=== PATIENT | female | born 1950 | race Caucasian/White ===

== ENCOUNTER 2021-04-16 10:04 | Outpatient (REF) | payer MEDICARE, SELFPAY ==
--- NOTE | ~2021-04-16 | MM_ITS ---
EXAMINATION: MM SCREENING DIGITAL BREAST TOMOSYNTHESIS, BILATERAL CLINICAL INFORMATION: Screening. Asymptomatic. The lifetime risk of breast cancer based on the Tyrer-Cuzick Model is 2.8%. COMPARISON: Mammography: None. TECHNIQUE: Digital breast tomosynthesis is performed in both the craniocaudal and mediolateral oblique views along with computer-aided detection (CAD). Synthesized 2D images are generated from the tomosynthesis. FINDINGS: The breasts are almost entirely fatty (ACR BI-RADS breast composition Category a). Within the deep lateral aspect of the left breast, along the nipple line, there is a lobulated density measuring approximately 1.1 x 0.5 cm in size, seen only on the mediolateral oblique projection. Exaggerated craniocaudal view and ultrasound is recommended for further evaluation. No suspicious left breast findings identified. MM/MM tomosynthesis screening BI IMPRESSION: Right breast density for further evaluation as described with exaggerated craniocaudal view and ultrasound. ASSESSMENT: BI-RADS 0: Incomplete - Need Additional Imaging Evaluation RECOMMENDATION: 1. Additional views of the right breast. 2. Targeted ultrasound if warranted after review of the additional views. 3. Radiology department staff will contact the patient for additional imaging. This patient's information was entered into a reminder system with a target due date for their next mammogram.
== END 2021-04-16 10:05 | disposition home or self-care (01) ==
LOC: HO.MAMMO 10:04
PROVIDERS: PCP Pediatrics; Visit Provider Pediatrics
DX: Z12.31 Encounter for screening mammogram for malignant neoplasm of breast (principal)
CPT/HCPCS: 77063; 77067

== ENCOUNTER 2021-05-16 10:45 | Outpatient (REF) | payer MEDICARE, SELFPAY ==
--- NOTE | ~2021-05-16 | MM_ITS ---
EXAMINATION: MM DIAGNOSTIC DIGITAL BREAST TOMOSYNTHESIS, RIGHT US DIAGNOSTIC ULTRASOUND BREAST, RIGHT CLINICAL INFORMATION: Recall from baseline exam for nodule posterior outer right breast. COMPARISON: Mammography: 04/16/2021 TECHNIQUE: Digital breast tomosynthesis is performed. 2D images are generated from the tomosynthesis. The following views are obtained: Exaggerated CC, ML x2. Ultrasound right breast is targeted to the posterior lateral aspect and upper outer quadrant. Grayscale imaging and color Doppler are performed without and with harmonics. FINDINGS: The breasts are almost entirely fatty (ACR BI-RADS breast composition Category a). As noted on baseline exam, there is a macrolobulated nodule approximately 1.2 x 0.7 cm at the posterior 9:00 position approximately 13 cm from nipple. Margins are macrolobulated. There may be a fine fatty cleft. No spiculation or associated calcification. Ultrasound demonstrates benign right axillary nodes. There is no visible cystic or soft tissue nodule in the expected area posterior lateral right breast. Results are discussed with the patient at time of visit. The finding on mammography most likely represents intramammary node. Fibroadenoma may have similar appearance. The chronicity is uncertain as finding is only noted on initial baseline exam. Management plan is for short interval follow-up diagnostic right mammography in 6 months. MM/MM tomosynthesis added views R IMPRESSION: Benign-appearing macrolobulated nodule posterior 9:00 right breast corresponding to recent baseline mammography, possibly intramammary node or fibroadenoma. No ultrasound correlate. ASSESSMENT: BI-RADS 3: Probably Benign RECOMMENDATION: Diagnostic right mammography in 6 months. This patient's information was entered into a reminder system with a target due date for their next mammogram.
== END 2021-05-16 10:46 | disposition home or self-care (01) ==
LOC: HO.MAMMO 10:45
PROVIDERS: Visit Provider Pediatrics
DX: N63.15 Unspecified lump in the right breast, overlapping quadrants (principal)
CPT/HCPCS: 76642; 77061; 77065

== ENCOUNTER 2021-07-08 10:24 | Outpatient (REF) | payer MEDICARE, SELFPAY ==
--- NOTE | ~2021-07-08 | XR_ITS ---
EXAMINATION: XR CHEST CLINICAL INFORMATION: J44.9 COPD COMPARISON: None TECHNIQUE: 2 views of the chest were obtained. FINDINGS: There is mild hyperinflation. The heart is normal in size. There is tapering of the right cardiophrenic angle likely related to areolar tissue. The vascularity is normal. There is no vascular congestion, airspace consolidation, or groundglass opacity. The costophrenic sulci are clear. The hilar and mediastinal contours are normal. There are degenerative changes thoracic spine and right shoulder. XR/XR chest 2V IMPRESSION: Mild hyperinflation. Lungs clear.
== END 2021-07-08 10:25 | disposition home or self-care (01) ==
LOC: HO.HMGCX 10:24
PROVIDERS: Visit Provider Internal Medicine
DX: J44.9 Chronic obstructive pulmonary disease, unspecified (principal)
CPT/HCPCS: 71046

== ENCOUNTER 2021-11-17 10:36 | Outpatient (REF) | payer MEDICARE, SELFPAY ==
--- NOTE | ~2021-11-17 | MM_ITS ---
EXAMINATION: MM DIAGNOSTIC DIGITAL BREAST TOMOSYNTHESIS, RIGHT CLINICAL INFORMATION: Short interval six-month follow-up right mammography for probable benign macrolobulated nodule posterior 9:00 right breast, possibly fibroadenoma or intramammary node. The lifetime risk of breast cancer based on the Tyrer-Cuzick Model is 2%. COMPARISON: Mammography: 05/16/2021, 04/16/2021 (BI-RADS 0, baseline), targeted right breast ultrasound 05/16/2021. TECHNIQUE: Digital breast tomosynthesis is performed in both the craniocaudal and mediolateral oblique views along with computer-aided detection (CAD). Synthesized 2D images are generated from the tomosynthesis. FINDINGS: The breasts are almost entirely fatty (ACR BI-RADS breast composition Category a). The small macrolobulated nodule posterior 9:00 right breast is stable to borderline decreased. There is no architectural abnormality. No developing density. The remainder of the right breast is unremarkable. No abnormal calcifications. No adenopathy. The skin contours are smooth. Results are provided to the patient at time of visit by the technologist. MM/MM tomosynthesis diagnostic RT IMPRESSION: Mammography similar to baseline exam. No developing density. ASSESSMENT: BI-RADS 3: Probably Benign RECOMMENDATION: Diagnostic mammography at time of annual bilateral mammography, due in 6 months. This patient's information was entered into a reminder system with a target due date for their next mammogram.
== END 2021-11-17 10:37 | disposition home or self-care (01) ==
LOC: HO.MAMMO 10:36
PROVIDERS: PCP Pediatrics; Visit Provider Pediatrics
DX: N63.15 Unspecified lump in the right breast, overlapping quadrants (principal)
CPT/HCPCS: 77061; 77065

== ENCOUNTER 2022-05-20 10:27 | Outpatient (REF) | payer MEDICARE, SELFPAY ==
--- NOTE | ~2022-05-20 | MM_ITS ---
EXAMINATION: MM DIAGNOSTIC DIGITAL BREAST TOMOSYNTHESIS, BILATERAL CLINICAL INFORMATION: Due for yearly. Also follow-up probable benign nodule posterior upper outer right breast, possibly intramammary node. The lifetime risk of breast cancer based on the Tyrer-Cuzick Model is 2%. COMPARISON: Mammography: 11/17/2021, 05/16/2021, 04/16/2021 (baseline, BI-RADS 0). TECHNIQUE: Digital breast tomosynthesis is performed in both the craniocaudal and mediolateral oblique views along with computer-aided detection (CAD). Synthesized 2D images are generated from the tomosynthesis. Additional exaggerated right CC view is obtained. FINDINGS: The breasts are almost entirely fatty (ACR BI-RADS breast composition Category a). Background stromal and fibroglandular densities are stable. There is no significant mass or interval architectural abnormality or developing density. No abnormal calcifications. The axilla are unremarkable. The oval nodule posterior upper outer right breast is stable from prior studies and will be reassessed again at next bilateral annual mammography, due in 12 months. Results are provided to the patient at time of visit by the technologist. MM/MM tomosynthesis diagnostic BI IMPRESSION: -No mammographic evidence of malignancy. -Probable benign nodule posterior outer right breast, stable. ASSESSMENT: BI-RADS 3: Probably Benign RECOMMENDATION: Diagnostic mammography at time of next annual exam, due in 12 months. This patient's information was entered into a reminder system with a target due date for their next mammogram.
== END 2022-05-20 10:28 | disposition home or self-care (01) ==
LOC: HO.MAMMO 10:27
PROVIDERS: PCP Pediatrics; Visit Provider Pediatrics
DX: R92.2 Inconclusive mammogram (principal)
CPT/HCPCS: 77062; 77066

== ENCOUNTER 2023-05-20 13:03 | Outpatient (REF) | payer MEDICARE, SELFPAY | END 2023-05-20 13:04 | disposition home or self-care (01) | LOC: HO.MAMMO 13:03 | PROVIDERS: PCP Pediatrics; Visit Provider Pediatrics | DX: R92.2 Inconclusive mammogram (principal) | CPT/HCPCS: 77062; 77066 ==

== ENCOUNTER → 2023-05-20 13:30 | Outpatient (BNV) | payer MEDICARE, SELFPAY | PROVIDERS: PCP Pediatrics; Visit Provider Radiology Diagnostic Radiology | DX: R92.313 Mammographic fatty tissue density, bilateral breasts (principal) | CPT/HCPCS: 77062; 77066; G0279 ==

== ENCOUNTER 2024-05-25 10:46 | Outpatient (REF) | payer MEDICARE, SELFPAY ==
--- NOTE | ~2024-05-25 | MM_ITS ---
EXAMINATION: MM SCREENING DIGITAL BREAST TOMOSYNTHESIS, BILATERAL CLINICAL INFORMATION: Screening. Asymptomatic. COMPARISON: Mammography: Comparison is made with available priors TECHNIQUE: Digital breast mammography with tomosynthesis is performed in both the craniocaudal and mediolateral oblique views along with computer-aided detection (CAD). FINDINGS: There are scattered areas of fibroglandular density (ACR BI-RADS breast composition Category b). There are no significant masses, abnormal calcifications, or other abnormalities. MM/MM tomosynthesis screening BI IMPRESSION: No mammographic evidence of malignancy. ASSESSMENT: BI-RADS BI-RADS 1 - Negative RECOMMENDATION: Routine annual mammography screening. 1 year F/U This examination should not preclude the clinical evaluation of a suspicious palpable abnormality. This patient's information was entered into a reminder system with a target due date for their next mammogram. Electronically signed by: Cheryl Cheek DO 06/02/2024 09:58 AM EDT
== END 2024-05-25 10:47 | disposition home or self-care (01) ==
LOC: HO.MAMMO 10:46
PROVIDERS: PCP Pediatrics; Visit Provider Pediatrics
DX: Z12.31 Encounter for screening mammogram for malignant neoplasm of breast (principal)
CPT/HCPCS: 77063; 77067

== ENCOUNTER → 2024-05-25 11:15 | Outpatient (BNV) | payer MEDICARE, SELFPAY | PROVIDERS: PCP Pediatrics; Visit Provider Internal Medicine | DX: Z12.31 Encounter for screening mammogram for malignant neoplasm of breast (principal) | CPT/HCPCS: 77063; 77067 ==

== ENCOUNTER 2024-09-26 10:01 | Outpatient (REF) | payer MEDICARE, SELFPAY ==
--- NOTE | ~2024-09-26 | MM_ITS ---
EXAMINATION: DXA BONE DENSITY AXIAL HISTORY: Estrogen deficiency TECHNIQUE: [employer] Dual energy absorptiometry (DEXA) of the lumbar spine, distal forearm, total right hip, and femoral neck was performed. COMPARISON: There are no prior studies for comparison. FINDINGS: The bone mineral density of the lumbar spine is 1.259 with a T-score of 0.8, and a Z-score of 1.7. This is likely artificially elevated due to degenerative disc disease. The bone mineral density of the right total hip is 1.344 with a T-score of 2.7, and a Z-score of 3.7. This is likely artificially elevated due to osteoarthritis. The bone mineral density of the right femoral neck is 1.868 with a T-score of 6.0, and a Z-score of 7.3. This is likely artificially elevated due to osteoarthritis. The bone mineral density of the distal forearm is 0.706 with a T-score of -1.9, and a Z-score of 0.2. FRACTURE RISK: The FRAX index suggests a risk of major osteoporotic fracture of 3.4%, and of hip fracture 0.0%. MM/XR DEXA axial skeleton IMPRESSION: Based on bone mineral density, and according to World Health Organization (WHO) criteria, the diagnosis is consistent with osteopenia. All bone density values are in grams per centimeter squared (g/cm2). Statistically, 68% of repeat scans fall within 1 SD (+/- 0.010 g/cm2 for AP spine L1-L4) and 1 SD (+/- 0.012 g/cm2 for femur total) FRAX is a trademark of the [employer]'s [place] [employer] Metabolic Bone Disease, a World Health Organization (WHO) Collaborating Center. Electronically signed by: Richard Stroud MD 09/26/2024 03:46 PM [facility]
--- OUTSIDE RECORDS SUMMARY | 2024-09-26 11:10 | XMS_ITS | Encounter Summary ---
Author Organization [employer] Address [address] [place] [address] [address] [place] [address] Care Team Providers Care Urban Gardening Specialist Name Role Phone Nicky Wilson MD Primary Care Provider [phone] Encounter Details Date Type Department Care Team ([facility] st Contact Info) Description 07/08/2022 Abstract [facility] [address] [place] [address] Provider, MD Susanna Social History Tobacco Use Types Packs/Day Years Used Date Smoking Tobacco: Never Assessed Comments Unknown Sex and Gender Information Value Date Recorded Sex Assigned at Female 06/15/2022 10:35 AM EDT Legal Sex Female 10:35 AM EDT Gender Identity Female 06/15/2022 10:35 AM EDT Sexual Orientation Straight 06/15/2022 10 :35 AM EDT documented as of this encounter Plan of Treatment Not on file documented as of this encounter Visit Diagnoses Not on filedocumented in this encounter Care Teams Urban Gardening Specialist Relationship Specialty Start Date End Date Nicky Wilson MD [address] [place] [address] PCP - General Family Medicine 12/29/18 documented as of this encounter
--- OUTSIDE RECORDS SUMMARY | 2024-09-26 11:10 | XMS_ITS | Encounter Summary ---
Author Organization [employer] Address [address] [place] [address] [address] [place] [address] Care Team Providers Care Ssrs Report Developer Name Role Phone Nicky Wilson MD Primary Care Provider [phone] Reason for Visit * Reason Comments Med Refill Encounter Details Date Type Department Care Team (Late st Contact Info) Description 05/22/2023 Refill [facility] MEDICINE [address] [place], [place] [id number] Nicky Wilson MD [address] [place] [address] Social History Tobacco Use Types Packs/Day Years [...] on filedocumented in this encounter Care Teams Ssrs Report Developer Relationship Specialty Start Date End Date Nicky Wilson MD [address] [place] [address] PCP - General Family Medicine 12/29/18 documented as of this encounter
--- OUTSIDE RECORDS SUMMARY | 2024-09-26 11:10 | XMS_ITS | Encounter Summary ---
Author Organization [employer] Address [address] [place] [address] [address] [place] [address] Care Team Providers Care Senior Coldfusion Developer Name Role Phone Nicky Wilson MD Primary Care Provider Encounter Details Date Type Department Care Team ([facility] st Contact Info) Description 07/08/2022 Abstract [facility] MEDICINE [address] [place] [address] Provider, MD Susanna Social History Tobacco Use [...] on filedocumented in this encounter Care Teams Senior Coldfusion Developer Relationship Specialty Start Date End Date Nicky Wilson MD [address] [place] [address] PCP - General Family Medicine 12/29/18 documented as of this encounter
--- OUTSIDE RECORDS SUMMARY | 2024-09-26 11:10 | XMS_ITS | Encounter Summary ---
Author Organization [employer] Address [address] [place] [address] [address] [place] [address] Care Team Providers Care Qa Tech Name Role Phone Nicky Wilson MD Primary Care Provider [phone] Reason for Visit * Reason Comments Med Refill Encounter Details Date Type Department Care Team ([facility] st Contact Info) Description 11/28/2022 Refill [facility] [address] [place] [address] Nicky Wilson MD [address] [place] [address] Social History Tobacco Use Types Packs/Day Years [...] on filedocumented in this encounter Care Teams Qa Tech Relationship Specialty Start Date End Date Nicky Wilson MD [address] [place] [address] PCP - General Family Medicine 12/29/18 documented as of this encounter
--- OUTSIDE RECORDS SUMMARY | 2024-09-26 11:10 | XMS_ITS | Clinical Summary ---
Author Organization [employer] Address [address] [facility] [address] [place] [address] Care Team Providers Care Professor Of German Name Role Phone Nicky Wilson MD Primary Care Provider [phone] Allergies Active Allergy Reactions Criticality Noted Date Comments Tomato 12/12/2018 Other reaction(s): Cutaneous reactions Medications albuterol 108 (90 Base) MCG/ACT inhaler INHALE 2 PUFFS BY MOUTH INTO THE LUNGS EVERY 4 HOURS NEEDED 2 Active dilTIAZem CD (Cardizem CD) 120 MG 24 hr capsule Take 1 capsule (120 mg) by mouth in the morning. 90 capsule 1 3 Active albuterol (2.5 MG/3ML) 0.083% nebulizer solution Take 3 mL (2.5 mg) by nebulization every 4 (four) hours if needed for wheezing. 75 mL 2 3 Active atorvastatin (Lipitor) 40 MG tabletIndication s:Dyslipidemia TAKE 1 TABLET BY MOUTH EVERY NIGHT AT BEDTIME 90 tablet 1 3 Active atorvastatin (Lipitor) 40 MG tabletIndication s:Dyslipidemia TAKE 1 TABLET BY MOUTH EVERY NIGHT AT BEDTIME 30 tablet 11 3 Active dilTIAZem CD (Cardizem CD) 120 MG 24 hr capsule TAKE 1 CAPSULE BY MOUTH EVERY DAY 90 capsule 3 4 Active albuterol 108 (90 Base) MCG/ACT inhalerIndicatio ns:Mixed simple and mucopurulent chronic bronchitis (CMS/HCC) INAHLE 2 PUFFS BY MOUTH EVERY 4-6 HOURS NEEDED FOR WHEEZING 8.5 g 5 4 Active furosemide (Lasix) 40 MG tabletIndication s: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 2 Active atorvastatin (Lipitor) 40 MG tablet Take 1 tablet by mouth. 9 Active aspirin 81 MG EC tablet Take 1 tablet by mouth Once per day. 9 Active Active Problems Problem Noted Date Diagnosed Date Acute hypoxemic respiratory failure 07/06/2024 Chronic right-sided heart failure 07/06/2024 Chronic obstructive lung disease 12/29/2018 06/10/2023 Atrial fibrillation and flutter 12/29/2018 06/10/2023 Obstructive sleep apnea syndrome 12/29/2018 06/10/2023 Essential (primary) hypertension 12/02/2018 06/10/2023 Secondary polycythemia 12/02/2018 3 Encounters Date Type Department Care Team Description 07/07/2024 Telephone [facility] [address] [place] [address] Nicky Wilson MD Horticultural Asset Management Medical Equipment 07/06/2024 10:00 AM EST Office Visit [facility] [address] [place] [address] Nicky Wilson MD Screening for colon cancer (Primary Dx); Essential (primary) hypertension; Secondary polycythemia; Obstructive sleep apnea syndrome; Osteopenia, unspecified location; Dietary counseling; Exercise counseling; Chronic right-sided heart failure (CMS/HCC); Mixed simple and mucopurulent chronic bronchitis (CMS/HCC); Atrial fibrillation and flutter (CMS/HCC) 07/06/2024 Travel 07/05/2024 Telephone [facility] [address] [place] [address] Nicky Wilson MD Chart Prep from Last 3 Months Immunizations Name Administration Dates Next Due Influenza High-dose Quadriva lent Preservative Free 06/10/2023,05/26/2022,05/14/2021,2019 Influenza, High Dose Seasona l, Preservative Free 06/05/2024,05/11/2019 Influenza, IIV3, injectable 11/27/2018 PPD Test 12/10/2018,12/03/2018 Pneumococcal Conjugate PCV 13 01/26/2019 RSV Adjuvant 07/19/2023 Social History Tobacco Use Types Packs/Day Years Used Date Smoking Tobacco: Former Cigarettes Passive Smoke Exposure: Current Smokeless Tobacco: Never Tobacco Cessation:Counseling Given: Not Answered Comments Unknown Sex and Gender Information Value Date Recorded Sex Assigned at Female 06/15/2022 10:35 AM EDT Legal Sex Female 10:35 AM EDT Gender Identity Female 06/15/2022 10:35 AM EDT Sexual Orientation Straight 06/15/2022 10 :35 AM EDT Last Filed Vital Signs Vital Sign Reading Time Taken Comments Blood Pressure 120/70 07/06/2024 9:58 AM EST Pulse 84 07/06/2024 9:58 AM EST Temperature 36.2 ??C (97.2 ??F) 07/06/2024 9:58 AM ES T Respiratory Rate 20 07/06/2024 9:58 AM EST Oxygen Saturation 87% 07/06/2024 9:58 AM EST Inhaled Oxygen Concentration - - Weight 93.9 kg (207 lb) 07/06/2024 9:58 AM EST Height 170.2 cm (5' 7 ) 07/06/2024 9:58 AM EST Body Mass Index 32.42 07/06/2024 9:58 AM EST Plan of Treatment Health Maintenance Due Date Last Done Comments CT Colonography 1950 Colonoscopy 1950 Colorectal Cancer Screening 1950 Depression Screening 1950 FIT DNA/Cologuard 1951 FIT 1951 FOBT 1950 Lipid Panel 1950 SDOH Screening 1950 Sigmoidoscopy 1950 Alcohol/Substance Use Screening 1963 Hepatitis C Screening 1969 DTaP/Tdap/Td Vaccines (1 - Tdap) 1970 Zoster Vaccines (1 of 2) 2001 Pneumococcal Vaccine: 50+ Years (2 of 2 - PPSV23) 03/23/2019 01/26/2019 Tobacco Screening 07/06/2025 07/06/2024 Mammogram 05/25/2026 05/25/2024, 12/2022, 05/20/2022, Additional history exists RSV Patients and Patients Aged 60 years or older Completed 07/19/2023 COVID-19 Vaccine Completed 06/05/2024, 11/2022, 06/18/2022, Additional history exists Influenza Vaccine Completed 06/05/2024, , 05/26/2022, Additional history exists HIB Vaccines Aged Out No longer eligi ble based on patient's age to complete this topic HPV Vaccines Aged Out No longer eligi ble based on patient's age to complete this topic Hepatitis A Vaccines Aged Out No long er eligible based on patient's age to complete this topic Hepatitis B Vaccines Aged Out No long er eligible based on patient's age to complete this topic IPV Vaccines Aged Out No longer eligi ble based on patient's age to complete this topic Meningococcal Vaccine Aged Out No kayla steven eligible based on patient's age to complete this topic RSV under 20 months Aged Out No longe r eligible based on patient's age to complete this topic Rotavirus Vaccines Aged Out No longer eligible based on patient's age to complete this topic Procedures Procedure Name Priority Date/Time Associated Diagnosis Comments BI MAMMOGRAM SCREENING TOMOSYNTHESIS BILATERAL Routine 05/25/2024 11:00 AM EDT from Last 3 Months or Most Recently Relevant to Health Maintenance Results * BI Mammogram Screening Tomosynthesis Bilateral (05/25/2024 11:00 AM EDT) Anatomical Region Laterality Modality Breast Bilateral Mammography 05/25/2024 11:0 0 AM EDT Narrative 06/02/2024 10:01 AM EDT ? [facility] ? [address] ?[place] [address] ? Mammography Report ? Signed ? Patient: Winter,Krystal ?MR#: [id number] ? : 1950 ?Acct:[id number] ? Age/Sex: 74 / F ?ADM Date: 05/25/24 ? Loc: HO.MAMMO ? Attending Dr: Nicky Wilson MD ? Ordering Physician: Nicky Wilson MD ?Results: 1Ne ?? gative ? Date of Service: 05/25/24 ?Follow Up: 1 Year From Orig ?? inal Mammogram ? Procedure(s): MM tomosynthesis screening BI ?? Accession Number(s): [id number] ? cc: Nicky Wilson MD ? EXAMINATION: ?? MM SCREENING DIGITAL BREAST TOMOSYNTHESIS, BILATERAL ? CLINICAL INFORMATION: ? Screening. Asymptomatic. ? COMPARISON: ?? Mammography: Comparison is made with available priors ? TECHNIQUE: ?? Digital breast mammography with tomosynthesis is performed in both the ?? craniocaudal and mediolateral oblique views along with computer-aided ?? detection (CAD). ? FINDINGS: ?? There are scattered areas of fibroglandular density (ACR BI-RADS breast ?? composition Category b). ? There are no significant masses, abnormal calcifications, or other ?? abnormalities. ? MM/MM tomosynthesis screening BI ?? IMPRESSION: ?? No mammographic evidence of malignancy. ? ASSESSMENT: ? BI-RADS BI-RADS 1 - Negative ? RECOMMENDATION: ?? Routine annual mammography screening. ? 1 year F/U ? This examination should not preclude the clinical evaluation of a ?? suspicious palpable abnormality. ? This patient's information was entered into a reminder system with a ?? target due date for their next mammogram. ? Electronically signed by: ??Cheryl Cheek DO ??06/02/2024 09:58 AM EDT ? Dictated By: ?Cheryl Cheek DO ? Signed By: ?<Electronically signed by Cheryl Cheek, DO in OV> ? 06/02/24 0958 ? DD/ 1100 ? TD/TT: 05/25/24 1126 ? Fire Inspector: ? Procedure Note Donotuseinterpreter, Image - 06/02/2024 [facility] [address] [place] [address] Mammography Report Signed Patient: Sridevi Max#: [id number] : 1Acct:[id number] Age/Sex: 74 / FADM Date: 05/25/24 Loc: HO.MAMMO Attending Dr: Nicky Wilson MD Ordering Physician: Nicky Wilson MDResults: 1Ne gative Date of Service: 05/25/24Follow Up: 1 Year From Orig inal Mammogram Procedure(s): MM tomosynthesis screening BI Accession Number(s): [id number] cc: Nicky Wilson MD EXAMINATION: MM SCREENING DIGITAL BREAST TOMOSYNTHESIS, BILATERAL CLINICAL INFORMATION: Screening. Asymptomatic. COMPARISON: Mammography: Comparison is made with available priors TECHNIQUE: Digital breast mammography with tomosynthesis is performed in both the craniocaudal and mediolateral oblique views along with computer-aided detection (CAD). FINDINGS: There are scattered areas of fibroglandular density (ACR BI-RADS breast composition Category b). There are no significant masses, abnormal calcifications, or other abnormalities. MM/MM tomosynthesis screening BI IMPRESSION: No mammographic evidence of malignancy. ASSESSMENT: BI-RADS BI-RADS 1 - Negative RECOMMENDATION: Routine annual mammography screening. 1 year F/U This examination should not preclude the clinical evaluation of a suspicious palpable abnormality. This patient's information was entered into a reminder system with a target due date for their next mammogram. Electronically signed by: Cheryl Cheek DO 06/02/2024 09:58 AM EDT RP Dictated By: Cheryl Cheek DO Signed By: <Electronically signed by Cheryl Cheek DO in OV> 06/02/24 0958 DD/ 1100 TD/TT: 05/25/24 1126 Fire Inspector: Nicky Wilson MD IMG BI PROCEDURES Final Resul t from Last 3 Months or Most Recently Relevant to Health Maintenance Insurance [employer] MEDICARE ADVANTAGE HMO Care Teams Professor Of German Relationship Specialty Start Date End Date Nicky Wilson MD [address] [place] [address] PCP - General Family Medicine 12/29/18
--- OUTSIDE RECORDS SUMMARY | 2024-09-26 11:10 | XMS_ITS | Encounter Summary ---
Author Organization [employer] Address [address] [place] [address] [address] [place] [address] Care Team Providers Care Letterpress Printing Machinist Name Role Phone Nicky Wilson MD Primary Care Provider [phone] Reason for Visit * Reason Comments Med Refill Encounter Details Date Type Department Care Team (Late st Contact Info) Description 12/27/2022 Refill [facility] [address] [place] [address] Bernice Montgomery MD [address] [place] [address] Social History Tobacco Use Types Packs/Day Years [...] on filedocumented in this encounter Care Teams Letterpress Printing Machinist Relationship Specialty Start Date End Date Nicky Wilson MD [address] [place] [address] PCP - General Family Medicine 12/29/18 documented as of this encounter
--- OUTSIDE RECORDS SUMMARY | 2024-09-26 11:10 | XMS_ITS | Clinical Summary ---
Author Organization [address] [facility] Address [address] [place] [address] Phone Care Team Providers Care Product Support Specialist Name Role Phone Nicky Wilson MD Primary Care Provider [phone] Encounters Date Type Department Care Team Description 07/11[facility]24 [facility] [address] [address] Nicky Wilson MD Referral from Last 3 Months Social History Tobacco Use Types Packs/Day Years Used Date Smoking Tobacco: Never Assessed Comments Unknown Sex and Gender Information Value Date Recorded Sex Assigned at Not on file Legal Sex Female 11:51 PM EST Gender Identity Not on file Sexual Orientation Not on file Plan of Treatment Health Maintenance Due Date Last Done Comments Breast Cancer Screening 1950 DTaP,Tdap,and Td Vaccines (1 - Tdap) 1958 Pneumococcal Vaccine: 50+ Ye ars (1 of 1 - PCV) 2001 Zoster Vaccines (1 of 2) 2001 Colorectal Cancer Screening: Colonoscopy 07/19/2022 Depression Screening 07/19/2022 Falls Risk Assessment 07/19/2022 Hepatitis C Screening 07/19/2022 Medicare Annual Wellness Visit 07/19/2022 Osteoporosis Screening (Bone Density Screening) 07/19/2022 Social Influencers of Health Screening 07/19/2022 COVID-19 Vaccine ( - 2023-2 5 season) 2024 Influenza Vaccine (#1) 2024 RSV Immunization Patients 60 + Years Old (1 - 1-dose 75+ series) 2026 HIB Vaccines Aged Out No longer eligi [...] on patient's age to complete this topic MMR Vaccines Aged Out No longer eligi ble based on patient's age to complete this topic Meningococcal ACWY Vaccine Aged Out N o longer eligible based on patient's age to complete this topic Meningococcal B Vacine Aged Out No lo nger eligible based on patient's age to complete this topic RSV Immunization Patients Un britany 20 months Aged Out No longer eligible b ased on patient's age to complete this topic Varicella Vaccines Aged Out No longer eligible based on patient's age to complete this topic Insurance [employer] MEDICARE Care Teams Product Support Specialist Relationship Specialty Start Date End Date Nicky Wilson MD [address] [place] [id number] PCP - General 03/21/19
--- OUTSIDE RECORDS SUMMARY | 2024-09-26 11:11 | XMS_ITS ---
Author Organization [facility] Address Unknown Allergies, Adverse Reactions, Alerts Substance Reaction Status Noted Date Resolved Date Tomato - raw only Cutaneous reactions active 9 Problems Problem Status Start Date End Date HEART FAILURE, UNSPECIFIED (Primary) (I50.9 - ICD-10-C M) ACTIVE 12/02/2018 RESPIRATORY FAILURE, UNSPECI FIED WITH HYPOXIA (J96.91 - ICD-10-CM) ACTIVE 12/02/2018 LOW BACK PAIN (M54.5 - ICD-10-CM) ACTIVE 019 ACUTE DIASTOLIC (CONGESTIVE) HEART FAILURE (I50.31 - ICD-10-CM) ACTIVE 12/02/2018 SHORTNESS OF BREATH (R06.02 - ICD-10-CM) ACTIVE 12/02/2018 LOCALIZED EDEMA (R60.0 - ICD-10-CM) ACTIVE 12/02 ESSENTIAL (PRIMARY) HYPERTENSION (I10 - ICD-10-CM) ACT ERROL 12/02/2018 OTHER ABNORMALITIES OF GAIT AND MOBILITY (R26.89 - ICD-10-CM) ACTIVE 12/06/2018 OTHER LACK OF COORDINATION (R27.8 - ICD-10-CM) ACTIVE 12/02/2018 WEAKNESS (R53.1 - ICD-10-CM) ACTIVE 12/02/2018 OBSTRUCTIVE SLEEP APNEA (IVANA LT) (PEDIATRIC) (G47.33 - ICD-10-CM) ACTIVE 12/02/2018 UNSPECIFIED ATRIAL FLUTTER (I48.92 - ICD-10-CM) ACTIVE 12/02/2018 SECONDARY POLYCYTHEMIA (D75.1 - ICD-10-CM) ACTIVE 12/02/2018 PRIMARY OSTEOARTHRITIS, RIGH T SHOULDER (M19.011 - ICD-10-CM) ACTIVE 12/02/2018 PAIN IN RIGHT SHOULDER (M25.511 - ICD-10-CM) ACTIVE 12/02/2018 CHRONIC OBSTRUCTIVE PULMONAR Y DISEASE, UNSPECIFIED (J44.9 - ICD-10-CM) ACTIVE 12/15/2018 UNSPECIFIED FRACTURE OF SHAF T OF HUMERUS, RIGHT ARM, SUBSEQUENT ENCOUNTER FOR FRACTURE WITH ROUTINE HEALING (S42.301D - ICD-10-CM) ACTIVE 12/02/2018 Encounters Encounter Performer Performer Role Encounter Diagnoses Location Date Discharge - Home - Private home/apt. with home health services [facility] 12/02/2018 03:08 pm EDT - 12/20/2018 04:23 pm EDT Immunizations Vaccine Date Influenza 11/27/2018 12:00 am EDT TB 2 Step Mantoux Skin Test 12/10/2018 0 9:00 am EDT TB 2 Step Mantoux Skin Test 12/03/2018 0 8:00 pm EDT Social History
--- OUTSIDE RECORDS SUMMARY | 2024-09-26 11:11 | XMS_ITS | Data Portability ---
Author Organization [facility] [employer] [facility], Main Office Address [address] [place] [address] Care Team Providers Care Epic Anesthesia Analyst Name Role Phone MALI LEOS 1ST FLOOR OTHER Assessment Encounter Date Assessment Date Assessment LastModified by Organization Details LastModified Time 12/03/2018 12/03/201812/02: wbc 6.9, hct 53.4, hgb 18.9, na 140, glord Not available 12/03/2018 13:38:39 12/08/2018 12/08/201812/02: wbc 6.9, hct 53.4, hgb 18.9, na 140, [email or web address] Not available 12/08/2018 14:44:52 Plan of Treatment Reminders Order Date Submit Date Provider Last Modified By Organization Details Last Modified Time Details Appointments None record ed. Lab None record ed. Referral None record ed. Procedures None record ed. Surgeries None record ed. Imaging None record ed. Medication Orders None record ed. Patient TargetsNo targets recorded. Patient Instructions Encounter Date Encounter Id Patient Instructions Last Modified By Organization Details Last Modified Time 12/19/2018 [id number] d/c home with O2 , meds, nebs and services. f/u with pcp in 1-2 weeks f/u with cardiology and pulm as scheduled. [email or web address] Not available 12/19/2018 09:39:26 Reason for Referral None Reported. Problems Name Problem SNOMED Code Status Onset Date Resolution Date Notes Provider Name and Address Organization Details Recorded Time Congestive heart failure 27227699 Active 2018 [employer] [facility] [address], [place], [address], [facility] [employer] 9 13:26:01 Obstructive sleep apnea syndrome 46374338 Active 2018 [facility] [address] , [address], [place], [address], [place] [facility] 9 13:26:05 Atrial flutter 7060008 Active [address], [address], [place], [address], [employer] 9 13:26:14 Fracture of the lateral humeral epicondyle 569829452 Active [address], [address], [place], [address], [employer] 9 13:26:25 Secondary polycythemi a 22959530 Active [address], [address], [place], [address], [employer] 9 13:26:59 Acute hypoxemic respiratory failure 847244786 Active [address], [facility] [address], [place], [address], [employer] 9 13:27:13 Arthritis of joint of right shoulder region 2723416311682 101 Active [address], [address], [place], [address], [employer] 9 13:27:31 Hyperlipide kale 84797207 Active [address], [address], [place], [address], [facility] 9 13:39:56 Chronic obstructive pulmonary disease 83276902 Active 2018 Felipa Win MD [address] [place] [address], [facility] [address], [place], [address], [employer] 9 13:03:17 Problem Notes None recorded. Medical Equipment None Reported. Allergies No known drug allergies Vitals Date Recorded Body temperature Heart rate Oxygen saturation Oxygen saturation in Arterial blood by Pulse oximetry Inhaled oxygen flow rate Respiratory rate Systolic blood pressure Diastolic blood pressure Provider Name and Address Organization Details Last Updated DateTime 9 96 [degF] 89 /min 96 % 96 % 2 L/min 18 /min 130 mm[Hg] 73 mm[Hg] [address], [address], [place], [address], [employer] 9 14:02:33 Date Recorded Body height Body mass index (BMI) Body weight Heart rate Respiratory rate Body temperature Oxygen saturation Oxygen saturation in Arterial blood by Pulse oximetry Inhaled oxygen flow rate Systolic blood pressure Diastolic blood pressure Provider Name and Address Organization Details Last Updated DateTime 9 170.18 cm 28.8 kg/m2 60092 g 92 /min 18 /min 97.8 [degF] 93 % 93 % 2 L/min 154 mm[Hg] 80 mm[Hg] Felipa Win MD [address] [facility], [facility] [address], [place], [address], [employer] 9 13:51:37 Date Recorded Body height Body mass index (BMI) Body weight Heart rate Respiratory rate Body temperature Oxygen saturation Oxygen saturation in Arterial blood by Pulse oximetry Inhaled oxygen flow rate Systolic blood pressure Diastolic blood pressure Provider Name and Address Organization Details Last Updated DateTime 9 170.18 cm 28.7 kg/m2 94750.8 4 g 88 /min 18 /min 97.5 [degF] 91 % 91 % 1.5 L/min 155 mm[Hg] 85 mm[Hg] Felipa Win MD [address] [facility] [address], [place], [address], [employer] 9 12:48:37 Date Recorded Body height Heart rate Systolic blood pressure Diastolic blood pressure Provider Name and Address Organization Details Last Updated DateTime 12/19/2018 170.18 cm 92 /min 135 mm[Hg] 85 mm[Hg] Cassandra Delgadillo [facility] 12/19/2018 09:34:01 Social History Question Answer Notes LastModified by Organizat ion Details LastModified Time Tobacco Smoking Status Former Smoker Not Available [employer] 06/11/2020 03:13:22 Do You Have An Advance Directive? Yes DNI/DNR/no Art Hydration, No Dialysis, Ok For Hospitaliz ation, And Art. Hydration. [id number] Information not available 06/11/2020 What Is Your Level Of Alcohol Consumption? Occasional [id number] Information not available 06/11/2020 How Much Tobacco Do You Chew? None [id number] Information not available 06/11/2020 Do You Have A Medical Power Of Surgical Orderly? No [id number] Information not available 06/11/2020 What Was The Date Of Your Most Recent Tobacco Screening? 12/15/2018 [id number] Information not available 06/11/2020 Has Tobacco Cessation Counseling Been Provided? No Quit 5 Yrs Ago [id number] Information not available 06/11/2020 How Many Years Have You Smoked Tobacco? 35 Smoked 1 Ppd For 35 Yrs. [id number] Information not available 06/11/2020 Sex: Unknown Functional Status None recorded. Mental Status None recorded. Family History Relationship Description Onset Age of this Age Resolved Age Notes LastModified by Organization Details LastModified Time Father No current problems or disability glord Not available 12/03 13:37:16 Mother No current problems or disability glord Not available 12/03 13:37:16 Medical History No medical history recorded. Gynecological HistoryNo gynecological history recorded. Obstetrics History GPAL:G 0 P 0 0 0 0 Past Encounters Encounter ID Performer Location Encounter Start Date Encounter Closed Date Diagnosis/Indication Diagnosis SNOMED-CT Code Diagnosis ICD10 Code Diagnosis Note [id number] JT JACKSON MALI DAFNE [address] [place] [address] 12/03/2018 13:24:20 12/09/2018 11:06:03 Congestive heart failure 56009251 I50.41 See HPI, new dxlikely sys and llamas. dysfunctio nLasix 40 mg BIDhome 02 with goal of 88%-92%fol low up with cards outpt as neededmoni tor fluid volume and resp statusdail y weights , Add YOLANDA stockings daily on AM off qhs Obstructiv e sleep apnea syndrome 22213110 G47.33 Has sleep study consistent with SHANE on 11/29BiPap 14 with at least 3 liters 02 QHS- Spoke to patient about trelegy machine as she is uncomforta ble with the bipap, please reach out to [employer] on Wednesday and determine if patient qualifies for this equipment. Working on getting nasal pillows now to bipap machine as she cannot wear the face mask. Atrial flutter 4923090 I 48.3 Cardizem 120 mg dailyeliqu is 5 mg BIDASA 81 mg dailymonit or rate Fracture o f the lateral humeral epicondyle 687398368 S42.434A Fell on ice two years ago, chronic pain to areaF/U with ortho to determine surgical future Hyperlipidemia 18295869 E78.2 Atorvastat in 40 mg dailymonit or lipids every 6 months Acute hypo xemic respiratory failure 256411816 J96.01 Duonebs q 4 hours PRNmonitor resp status [id number] Felipa Win MD [address] [place] [address] 12/08/2018 13:44:37 12/09/2018 12:29:08 Congestive heart failure 93952017 I50.41 Much improved with diuresis of ~30#. Continue Lasix 40 mg BID. Monitor daily wts, edema and resp. status.Con tinue TEDs stockings. F/U with cardio as outpt. Obstructiv e sleep apnea syndrome 72007598 G47.33 New dx of SHANE inpt. Now on BiPAP parameters written as 29/04 with at least 3 liters 02 QHS, but will titrate O2 flow to sats 90-92% Atrial flutter 6205023 I 48.3 Now in reg. rhythm. Continue diltiazem 120 mg qd, eliquis 5 mg BID and ASA 81 mg qd.Monitor rate Fracture o f the lateral humeral epicondyle 700824618 S42.434A Fell on ice two years ago, chronic pain to areaF/U with ortho to determine tx. Pt. would rather not have surgery. Hyperlipidemia 47099114 E78.2 Continue atorvastat in 40 mg qd.Monitor lipids as outpt. Acute hypo xemic respiratory failure 605089701 J96.22 J96.21 Likely from COPD. Continues with need for supplement al O2. Using Duonebs q 4 hours PRN, but not using unless she feels really bad. Should keep sats between 90-92%, but NO HIGHER THAN 93% due to pt's hx of retaining CO2. Will specify this in orders and change duonebs to QID scheduled through the weekend with albuterol q 4 hrs prn. Pt. does not really know what normal feels like. I think using duonebs regularly will help her get a feel for that. Then can go back to prn. Monitor resp status. Needs pulmonary f/u as outpt. [id number] MD MALI Posadas DAFNE [address] [place] [address] 12/15/2018 12:32:46 12/21/2018 08:45:59 Chronic obstructive pulmonary disease 80068386 J43.1 Untxed for yrs. Pt. has clearly had chronic hypoxia given high H/H. Now willing to accept use of home O2 to maintain improved cardio/res p. health. Pt. understand s that with pulmonary rehab she may be able to taper her use to with activity only. Continue duonebs q hrs prn and albuterol nebs q 4 hrs prn. Pt. needs home O2 due to COPD. She appears back to her baseline at this point. Acute hypo xemic respiratory failure 686029222 J96.22 J96.21 Likely from COPD as above. Continues with need for supplement al O2. Should keep sats between 90-92%, but NO HIGHER THAN 93% due to pt's hx of retaining CO2. Monitor resp status. Needs pulmonary f/u as outpt. Congestive heart failure 45300479 I50.41 Much improved with diuresis of ~30#. Continue Lasix 40 mg BID. Monitor daily wts, edema and resp. status.Con varun GUERREROs stockings. F/U with cardio as outpt. Obstructiv e sleep apnea syndrome 82114407 G47.33 New dx of SHANE inpt. Now on BiPAP parameters written as 29/04 with at least 3 liters 02 QHS, but will titrate O2 flow to sats 90-92% [id number] Cassandra LEOS [address] [place] [address] 12/19/2018 07:58:06 12/21/2018 09:44:20 Chronic obstructive pulmonary disease 36205011 J43.1 -untreated for for yrs. -Artem d/c home with O2 to maintain improved cardio/res p. health. Pt. understand s that with pulmonary rehab she may be able to taper her use to with activity only. -Continue duonebs q hrs prn and albuterol nebs q 4 hrs prn. -She appears back to her baseline at this point. Acute hypo xemic respiratory failure 975200154 J96.22 J96.21 d/t COPD as above. Continues with need for supplement al O2. Should keep sats between 90-92%, but NO HIGHER THAN 93% due to pt's hx of retaining CO2. Monitor resp status. Needs pulmonary f/u as outpt. Congestive heart failure 57176000 I50.41 Much improved with diuresis of ~30#. Continue Lasix 40 mg BID. Monitor daily wts, edema and resp. status.Con tinue TEDs stockings. F/U with cardio as outpt. Obstructiv e sleep apnea syndrome 23964826 G47.33 New dx of SHANE inpt. Now on BiPAP parameters written as 29/04 with at least 3 liters 02 QHS, but will titrate O2 flow to sats 90-92% Health Concerns Section Related Observation LastModified by Organization Detai ls LastModified Time None Recorded Concern Status LastModified by Organization Details LastModified Time None Recorded Advance Directives Directive Y: DNI/DNR/no art hydration, no dialysis, ok for hospitalization, and art. hydration. Payers Encounter Date Sequence Insurance Name Policy Number Policy Koch Covered Member ID Koch Member ID Guarantor Name 12/03/2018 1 [facility] (MEDICARE REPLACEMENT/A DVANTAGE - HMO) [id number] Krystal Max [id number] Krystal Max 12/08/2018 1 [facility] (MEDICARE REPLACEMENT/A DVANTAGE - HMO) [id number] Krystal Max [id number] Krystal Max 12/15/2018 1 [facility] (MEDICARE REPLACEMENT/A DVANTAGE - HMO) [id number] Krystal Max [id number] Krystal Max 12/19/2018 1 [facility] (MEDICARE REPLACEMENT/A DVANTAGE - HMO) [id number] Krystal Max [id number] Krystal Winter Notes Date Note Type Note Provider Name and Address Organization Details Recorded Time 12/03/2018 text/html This is a 68 yea r old female seen today for initial intake visit. Patient presented to urgent care with dyspnea on exertion. LE edema, hypoxia to the 60s and a 50 lb weight gain over the past year. She was sent to the ED for eval from urgent care office. Chest xray shows bilateral pleural effusions with increased pulm interstitial markings. Echo shows severe right sided heart failure with pulm htn. She was started on IV lasix, she was given metoprolol and dig for new onset a flutter. Started on eliquis, sleep study showed SHANE and home bipap was ordered with 3 lpm of 02. She was diuresed but continued to need 02. She had some right shoulder pain, xray showed old impacted fracture of proximal humerus, outpt follow up and possible surgery recommended. She was discharged to rehab on 2 lpm of 02 and admitted for continued care and therapy. No significant PMH as patient had not been to PCP in many years. JT JACKSON [address] [place] [address], [address], [place], [address], [facility] - [employer] 12/09/2018 09:41:08 12/08/2018 text/html This is a 68 yo woman who is here for rehab after an acute hospitalization for hypercarbic, hypoxic resp. failure. She had not been seen by a PCP in quite a while (she thinks more than 10 maybe 15 yrs) and had gained 50# over the past year. She had been noticing increased SOB and peripheral edema, and on the day of admission boyfriend noticed her color didn't look good, so she agreed to got to urgent care. In urgent care her O2 sat was in the 60s and she was [place] [facility] Eval showed hypercarbia in addition to hypoxia. CXR showed bilateral pleural effusions with increased pulm interstitial markings. She was started on O2 and given IV lasix. Echo was done which showed severe right heart failure with pulmonary HTN. Sleep study showed SHANE. She had one episode of SVT/atrial flutter and she was given metoprolol and loaded with dig. She converted to NSR and was switched to cardizem. She continued to need supplemental O2 and was started on BiPAP at night. She was diuresed about 10 kg during hospitalization. She also c/o right shoulder pain and xray showed old impacted fx of proximal humerus. Ortho recommended outpt f/u for possible surgery. She says that since here she is starting to feel a little stronger. Upset that she is gong to need BiPAP at home and possibly home O2. Her PMH is unknown as she hasn't seen healthcare provider for many years, but current hx includes SHANE, right heart failure, pulmonary HTN, right humerus fx, episode of SVT/A flutter. Felipa Win MD [address] [facility], [address], [place], [address], [employer] 12/08/2018 15:08:26 12/15/2018 text/html i am asked to se e this 68 yo woman, with chronic resp failure due to COPD, CHF and sleep apnea, because of her resistance to going home with O2 on. Her resp. status remains borderline, despite having been able to taper O2 use somewhat. Today her O2 sat on RA at rest was 88%, with even minimal movement it dropped to 84%. On 1L it went to 89% and 1.5L 91%. With activity sat dropped to 84% on 1.5L and came up to 94% 3L. HR remained 90-100 with activity. She clearly needs home O2, and to continue on duonebs and albuterol nebs as needed. She also continues to require BiPAP at night for sleep apnea. She will need f/u with pulmonary and cardiology as CHF also is playing a role in her hypoxia. She has a hx of not seeing health care providers for the last 10 yrs. I am hoping that she will be compliant with these recommendations. She is feeling very sad and frustrated right now, because she really doesn't want home O2. She is worried about having room in her small house for the equipment. Her PMH is unknown as she hasn't seen healthcare provider for many years, but current hx includes COPD, SHANE, right heart failure, pulmonary HTN, right humerus fx, episode of SVT/A flutter. Felipa Win MD [address] [facility], [address], [place], [address], [employer] 12/15/2018 13:10:11 12/19/2018 text/html i am asked to se e this 68 yo woman who was admitted for rehab after hospitalization with acute resp. failure. She has h/o chronic resp failure due to COPD, CHF and sleep apnea, because of her resistance to going home with O2 on. Her resp. status remains borderline, despite having been able to taper O2 use somewhat. Her O2 sat on RA at rest is 88%. With activity sat drops to 84% on 1.5L and came up to 94% 3L. HR remained 90-100 with activity. She clearly needs home O2, and to continue on duonebs and albuterol nebs as needed. She also continues to require BiPAP at night for sleep apnea. She will need f/u with pulmonary and cardiology as CHF (d/t R sided heart failure) also is playing a role in her hypoxia. PMH: COPD, SHANE, right heart failure, pulmonary HTN, right humerus fx, episode of SVT/A flutter. Cassandra carbajal [place] - [facility] 12/19/2018 09:39:37 OBGyn Episode No OBEpisode recorded.
== END 2024-09-26 10:02 | disposition home or self-care (01) ==
LOC: HO.MAMMO 10:01
PROVIDERS: Visit Provider Pediatrics
DX: Z13.820 Encounter for screening for osteoporosis (principal); M85.80 Other specified disorders of bone density and structure, unspecified site; Z78.0 Asymptomatic menopausal state
CPT/HCPCS: 77080

== ENCOUNTER → 2024-09-26 10:30 | Outpatient (BNV) | payer MEDICARE, SELFPAY | PROVIDERS: Visit Provider Radiology Diagnostic Radiology | DX: E28.39 Other primary ovarian failure (principal) | CPT/HCPCS: 77080 ==

== ENCOUNTER 2024-11-20 08:24 | Outpatient (REF) | payer MEDICARE, SELFPAY ==
--- OUTSIDE RECORDS SUMMARY | 2024-11-20 08:55 | XMS_ITS | Encounter Summary ---
Author Organization [employer] Address [address] [place] [address] 7t [place] [address] Care Team Providers Care Dairy Technologist Name Role Phone Nicky Wilson MD Primary Care Provider [phone] Reason for Visit * Reason Comments Med Refill Encounter Details Date Type Department Care Team (Late Contact Info) Description 12/27/2022 Refill [facility] MED & PEDS [address] [place] [address] Bernice Montgomery MD [address] [place] [address] Social History Tobacco Use Types Packs/Day Years Used Date Smoking Tobacco: Never Assessed Comments Unknown Sex and Gender Information Value Date Recorded Sex Assigned at Female 06/15/2022 10:35 AM EDT Legal Sex Female 10:35 AM EDT Gender Identity Female 06/15/2022 10:35 AM EDT Sexual Orientation Straight 06/15/2022 10 :35 AM EDT documented as of this encounter Plan of Treatment Upcoming Encounters Date Type Department Care Team (Late Contact Info) Description 11/28/2024 11:30 AM EDT Office Visit [facility] CHC MED & PEDS [address] [place] [address] Nicky Wilson MD [address] [place] [address] documented as of this encounter Visit Diagnoses Not on filedocumented in this encounter Care Teams Dairy Technologist Relationship Specialty Start Date End Date Nicky Wilson MD [address] [place] [id number] PCP - General Family Medicine 12/29/18 documented as of this encounter
--- OUTSIDE RECORDS SUMMARY | 2024-11-20 08:55 | XMS_ITS | Encounter Summary ---
Author Organization [employer] Address [address] [place] [address] 7 [place] [address] Care Team Providers Care Guest Relations Agent Name Role Phone Nicky Wilson MD Primary Care Provider [phone] Reason for Visit * Reason Comments Med Refill Encounter Details Date Type Department Care Team ([facility] Contact Info) Description 05/22/2023 Refill [facility] MEDICINE [address] [place], [place] [phone] Nicky Wilson MD [address] [place] [address] Social History Tobacco Use Types Packs/Day Years [...] Upcoming Encounters Date Type Department Care Team ([facility] Contact Info) Description 11/28/2024 11:30 AM EDT Office Visit [facility] CHC MED & PEDS [address] [place] [address] Nicky Wilson MD [address] [place] [address] documented as of this encounter Visit Diagnoses Not on filedocumented in this encounter Care Teams Guest Relations Agent Relationship Specialty Start Date End Date Nicky Wilson MD [address] [place] [id number] PCP - General Family Medicine 12/29/18 documented as of this encounter
--- OUTSIDE RECORDS SUMMARY | 2024-11-20 08:55 | XMS_ITS | Encounter Summary ---
Author Organization [employer] Address [address] [place] [address] 7t [place] [address] Care Team Providers Care Enamel Drier Name Role Phone Nicky Wilson MD Primary Care Provider [phone] Reason for Visit * Reason Comments Med Refill Encounter Details Date Type Department Care Team (Late st Contact Info) Description 11/28/2022 Refill [facility] CHC MED & PEDS [address] [place] [address] Nicky Wilson MD [address] [place] [address] Social History Tobacco Use Types Packs/Day Years [...] Description 11/28/2024 11:30 AM EDT Office Visit [facility] CHC MED & PEDS [address] [place] [address] Nicky Wilson MD [address] [place] [address] documented as of this encounter Visit Diagnoses Not on filedocumented in this encounter Care Teams Enamel Drier Relationship Specialty Start Date End Date Nicky Wilson MD [address] [place] [id number] PCP - General Family Medicine 12/29/18 documented as of this encounter
--- OUTSIDE RECORDS SUMMARY | 2024-11-20 08:56 | XMS_ITS | Encounter Summary ---
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) (Primary Dx); Secondary polycythemia Social History Tobacco Use Types Packs/Day Years Used Date Smoking Tobacco: Former Cigarettes Passive Smoke Exposure: Current Smokeless Tobacco: Never Comments Unknown Sex and Gender Information Value Date Recorded Sex Assigned at Female 06/15/2022 10:35 AM EDT Legal Sex Female 10:35 AM EDT Gender Identity Female 06/15/2022 10:35 AM EDT Sexual Orientation Straight 06/15/2022 10 :35 AM EDT documented as of this encounter Plan of Treatment Upcoming Encounters Date Type Department Care Team ([facility] st Contact Info) Description 11/28/2024 11:30 AM EDT Office Visit [facility] MED & PEDS [address] [place] [address] Nicky Wilson MD [address] [place] [address] Scheduled Referrals Name Type Priority Associated Diagnoses Orde r Schedule Referral to Pulmonology Outpatient Referral Routine 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
--- OUTSIDE RECORDS SUMMARY | 2024-11-20 08:56 | XMS_ITS | Encounter Summary ---
Author Organization [employer] Address [address] [place] [address] 7t [place] [address] Care Team Providers Care Environmental Field Office Manager Name Role Phone Nicky Wilson MD Primary Care Provider [phone] Encounter Details Date Type Department Care Team (Late st Contact Info) Description 07/08/2022 Abstract [facility] MEDICINE [address] [place] [address] ProviderSusanna MD Social History Tobacco Use Types Packs/Day Years [...] Encounters Date Type Department Care Team (Late st Contact Info) Description 11/28/2024 11:30 AM EDT Office Visit [facility] CHC MED & PEDS [address] [place] [address] Nicky Wilson MD [address] [place] [address] documented as of this encounter Visit Diagnoses Not on filedocumented in this encounter Care Teams Environmental Field Office Manager Relationship Specialty Start Date End Date Nicky Wilson MD [address] [place] [address] PCP - General Family Medicine 12/29/18 documented as of this encounter
--- OUTSIDE RECORDS SUMMARY | 2024-11-20 08:56 | XMS_ITS | Encounter Summary ---
Author Organization [employer] Address [address] [facility] 7t [place] [address] Care Team Providers Care Novelty Worker Name Role Phone Nicky Wilson MD Primary Care Provider [phone] Reason for Visit * Reason Onset Date Comments Appointment Request 11/17/2024 Encounter Details Date Type Department Care Team ([facility] st Contact Info) Description 11/17/2024 Telephone [facility] CHC MED & PEDS [address] [place] [address] Nicky Wilson MD [address] [place] [address] Appointment Request Social History Tobacco Use Types Packs/Day Years Used Date Smoking Tobacco: Former Cigarettes Passive Smoke Exposure: Current Smokeless Tobacco: Never Comments Unknown Sex and Gender Information Value Date Recorded Sex Assigned at Female 06/15/2022 10:35 AM EDT Legal Sex Female 10:35 AM EDT Gender Identity Female 06/15/2022 10:35 AM EDT Sexual Orientation Straight 06/15/2022 10 :35 AM EDT documented as of this encounter Miscellaneous Notes * Telephone Encounter - Melody Hanson RN - 11/17/2024 12:19 PM EDT TC to pt to schedule a TDAP nurse visit. Vaccine nurse consulted. Pt states that if it is okay she will go to [facility] because of her transportation issues. RN told pt that is fine just to let us know if she needs to reschedule. PT was also advised to take her breathing treatment in the morning before her labs documented in this encounter Plan of Treatment Upcoming Encounters Date Type Department Care Team (Late st Contact Info) Description 11/28/2024 11:30 AM EDT Office Visit [facility] MED & PEDS [address] [place] [address] Nicky Wilson MD [address] [place] [address] documented as of this encounter Visit Diagnoses Not on filedocumented in this encounter Care Teams Novelty Worker Relationship Specialty Start Date End Date Nicky Wilson MD [address] [place] [address] PCP - General Family Medicine 12/29/18 documented as of this encounter
--- OUTSIDE RECORDS SUMMARY | 2024-11-20 08:56 | XMS_ITS | Clinical Summary ---
Author Organization [facility] Address [address] [place] [address] Phone Care Team Providers Care Banquet Chef Name Role Phone Nicky Wilson MD Primary Care Provider [phone] Social History Tobacco Use Types Packs/Day Years [...] 1951 DTaP,Tdap,and Td Vaccines (1 - Tdap) 1970 Pneumococcal Vaccine: 50+ Ye ars (1 of 1 - PCV) 2001 Zoster Vaccines (1 of 2) 2001 Colorectal Cancer Screening: Colonoscopy 07/19/2022 Depression Screening 07/19/2022 Falls Risk Assessment 07/19/2022 Hepatitis C Screening 07/19/2022 Medicare Annual Wellness Visit 07/19/2022 Osteoporosis Screening (Bone Density Screening) 07/19/2022 Social Influencers of Health Screening 07/19/2022 COVID-19 Vaccine ( - 2023-2 5 season) 2024 Influenza Vaccine (Season Ended) 2025 RSV Immunization Adult Patie nts (1 - 1-dose 75+ series) 2026 HIB [...] topic Insurance [employer] MEDICARE Care Teams Banquet Chef Relationship Specialty Start Date End Date Nicky Wilson MD [address] [place] [address] PCP - General 03/21/19
--- OUTSIDE RECORDS SUMMARY | 2024-11-20 08:56 | XMS_ITS | Encounter Summary ---
Author Organization [employer] Address [address] [facility] 7t [place] [address] Care Team Providers Care Fountain Pen Turner Name Role Phone Nicky Wilson MD Primary Care Provider [phone] Reason for Visit * Reason Onset Date Comments Call Back Request 11/17/2024 Encounter Details Date Type Department Care Team ([facility] st Contact Info) Description 11/17/2024 Telephone [facility] MEDICINE [address] [place] [address] Nicky Wilson MD [address] [place] [phone] Call Back Request Social History Tobacco Use Types Packs/Day [...] encounter Miscellaneous Notes * Telephone Encounter - Susie Gonzalez RN - 11/17/2024 11:53 AM EDT Patient is requesting pertussis immunization (whooping cough immunization) bc her granddaughter is having a baby next week. Let patient know that we will schedule an appointment for her to get immunization and call her with that appointment. * Telephone Encounter - Kp Marquez 11/17/2024 10:47 AM EDT TC from pt requesting a call back from the nurse regarding her labs and also a shot that she s supposed to be getting. Contact pt at [phone] documented in this encounter Plan of Treatment Upcoming Encounters Date Type Department Care Team ([facility] st Contact Info) Description 11/28/2024 11:30 AM EDT Office Visit [facility] MED & PEDS [address] [place] [address] Nicky Wilson MD [address] [place] [address] documented as of this encounter Visit Diagnoses Not on filedocumented in this encounter Care Teams Fountain Pen Turner Relationship Specialty Start Date End Date Nicky Wilson MD [address] [place] [address] PCP - General Family Medicine 12/29/18 documented as of this encounter
--- OUTSIDE RECORDS SUMMARY | 2024-11-20 08:56 | XMS_ITS | Encounter Summary ---
Author Organization [employer] Address [address] [facility] 7 [place] [address] Care Team Providers Care Hadoop Engineer Name Role Phone Nicky Wilson MD Primary Care Provider [phone] Reason for Visit * Reason Onset Date Comments Referral 11/17/2024 Encounter Details Date Type Department Care Team ([facility] st Contact Info) Description 11/17/2024 Telephone [facility] MEDICINE [address] [place] [address] Nicky Wilson MD [address] [place] [phone] Referral Social History Tobacco Use Types Packs/Day Years [...] Encounter - Susie Gonzalez RN - 11/17/2024 11:40 AM EDT TC to patient. She is requesting a pertussis immunization, no record of having Dtap in past 10 years. Will schedule nursing appointment with patient to get immunization. Patient requesting pulmonary referral be sent to Dr. Reyes at [facility] instead of the as sent to [facility]. Routing to provider for new referral. * Telephone Encounter - Kp Del Vallenandez - 11/17/2024 10:42 AM EDT Tc from pt requesting a referral for Pulminary to be sent to Dr. Reyes at [facility]. Contact pt at [phone] documented in this encounter Plan of Treatment Upcoming Encounters Date Type Department Care Team (Late st Contact Info) Description 11/28/2024 11:30 AM EDT Office Visit [facility] MED & PEDS [address] [place], [place] [phone] Nicky Wilson MD [address] [place] [address] documented as of this encounter Visit Diagnoses Not on filedocumented in this encounter Care Teams Hadoop Engineer Relationship Specialty Start Date End Date Nicky Wilson MD [address] [place] [address] PCP - General Family Medicine 12/29/18 documented as of this encounter
--- OUTSIDE RECORDS SUMMARY | 2024-11-20 08:56 | XMS_ITS | Clinical Summary ---
Author Organization [employer] Address [address] [facility] [address] [place] [address] Care Team Providers Care Corking Machine Operator Name Role Phone Nicky Wilson MD Primary Care Provider [phone] Allergies Active Allergy Reactions Criticality Noted Date Comments Tomato 12/12/2018 Other reaction(s): Cutaneous reactions Medications albuterol 108 (90 Base) MCG/ACT inhaler INHALE 2 PUFFS BY MOUTH INTO THE LUNGS EVERY 4 HOURS NEEDED 12/27/19 22 Active dilTIAZem CD (Cardizem CD) 120 MG 24 hr capsule Take 1 capsule (120 mg) by mouth in the morning. 90 capsule 1 12/29/19 23 Active albuterol (2.5 MG/3ML) 0.083% nebulizer solution Take 3 mL (2.5 mg) by nebulization every 4 (four) hours if needed for wheezing. 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 12/03/19 Active aspirin 81 MG EC tablet Take 1 tablet by mouth Once per day. 12/03/19 Active Umeclidinium-Vi lanterol (Anoro Ellipta) 62.5-25 MCG/ACT aerosol powder Inhale 1 puff Once per day. 60 each 11 10/09/19 25 Active atorvastatin (Lipitor) 40 MG tabletIndicatio ns:Dyslipidemia TAKE 1 TABLET BY MOUTH EVERY NIGHT AT BEDTIME 90 tablet 1 10/20/19 25 Active atorvastatin (Lipitor) 40 MG tabletIndicatio ns:Dyslipidemia Take 1 tablet (40 mg) by mouth at bedtime. 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) TAKE 1 TABLET(40 MG) BY MOUTH IN THE MORNING 90 tablet 1 05/08/20 24 2024 Discontinued Active Problems Problem Noted Date Diagnosed Date Acute hypoxemic respiratory failure 07/06/2024 Chronic right-sided heart failure 07/06/2024 Chronic obstructive lung disease 12/29/2018 06/10/2023 Atrial fibrillation and flutter 12/29/2018 06/10/2023 Obstructive sleep apnea syndrome 12/29/2018 06/10/2023 Essential (primary) hypertension 12/02/2018 06/10/2023 Secondary polycythemia 12/02/2018 3 Encounters Date Type Department Care Team Description 11/19/2024 Orders Only [facility] [address] [place] [address] Nicky Wilson MD 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 [address] [place] [address] Nicky Wilson MD Call Back Request 11/17/[address] 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 [address] [place] [address] Nicky Wilson MD Dyslipidemia 10/19/2024 Refill [facility] [address] [place] [address] Nicky Wilsno MD Dyslipidemia 10/12/2024 Telephone [facility] [address] [place] [address] Nicky Wilson MD 10/09/2024 Refill [facility] [address] [place] [address] Nicky Wilson MD 10/06/2024 Refill [facility] [address], [place] [phone] Nicky Wilson MD from Last 3 Months Immunizations Name Administration [...] 07/06/2024 9:58 AM EST Plan of Treatment Upcoming Encounters Date Type Department Care Team ([facility] Contact Info) Description 11/28/2024 11:30 AM EDT Office Visit [facility] [address] [place] [address] Nicky Wilson MD [address] [place] [address] Health Maintenance Due Date Last Done Comments [...] Tobacco Screening 07/06/2025 07/06/2024 Mammogram 05/25/2026 05/25/2024, 1012/2022, 05/20/2022, Additional history exists RSV Patients and [...] Procedure Name Priority Date/Time Associated Diagnosis Comments BD DEXA AXIAL Routine 09/26/2024 10:30 AM EST Osteopenia, unspecified location BI MAMMOGRAM SCREENING TOMOSYNTHESIS BILATERAL Routine 05/25/2024 11:00 AM EDT from Last 3 Months or Most Recently Relevant to Health Maintenance Results * BD DEXA Axial (09/26/2024 10:30 AM EST) Anatomical Region Laterality Modality Body Radiographic Lindsay ging 09/26/2024 10:3 0 AM EST Narrative 09/26/2024 3:49 PM EST ? [facility] [place] ? [address] ?[place] [address] ? Mammography Report ? Signed ? Patient: Winter,Krystal ?MR#: [id number] ? : 1950 ?Acct:[id number] ? Age/Sex: 74 / F ?ADM Date: 02/11/25 ? Loc: HO.MAMMO ? Attending Dr: Nicky Wilson MD ? Ordering Physician: Nicky Wilson MD ?Results: ? Date of Service: 09/26/24 ?Follow Up: ? Procedure(s): XR DEXA axial skeleton ?? Accession Number(s): [id number] ? cc: Nicky Wilson MD ? EXAMINATION: ??DXA BONE DENSITY AXIAL ? HISTORY: ??Estrogen deficiency ? TECHNIQUE: Definition 6 Dual energy absorptiometry (DEXA) ?? of the lumbar spine, distal forearm, total right hip, and femoral neck ?? was performed. ? COMPARISON: ??There are no prior studies for comparison. ? FINDINGS: ? The bone mineral density of the lumbar spine is 1.259 with a T-score of ?? 0.8, and a Z-score of 1.7. This is likely artificially elevated due to ?? degenerative disc disease. ? The bone mineral density of the right total hip is 1.344 with a T-score ?? of 2.7, and a Z-score of 3.7. This is likely artificially elevated due ?? to osteoarthritis. ? The bone mineral density of the right femoral neck is 1.868 with a ?? T-score of 6.0, and a Z-score of 7.3. This is likely artificially ?? elevated due to osteoarthritis. ? The bone mineral density of the distal forearm is 0.706 with a T-score ?? of -1.9, and a Z-score of 0.2. ? FRACTURE RISK: ?? The FRAX index suggests a risk of major osteoporotic fracture of 3.4%, ?? and of hip fracture 0.0%. ? MM/XR DEXA axial skeleton ?? IMPRESSION: ?? Based on bone mineral density, and according to World Health ?? Organization (WHO) criteria, the diagnosis is consistent with ?? osteopenia. ? All bone density values are in grams per centimeter squared (g/cm2). ?? Statistically, 68% of repeat scans fall within 1 SD (+/- 0.010 g/cm2 ?? for AP spine L1-L4) and 1 SD (+/- 0.012 g/cm2 for femur total) ?? FRAX is a trademark of the [employer]'s ?? [place] [facility] Metabolic Bone Disease, a World Health Organization (WHO) ?? Collaborating Center. ? Electronically signed by: ??Richard Stroud MD ??09/26/2024 03:46 PM EST ?? RP ? Dictated By: ?Richard Stroud MD ? Signed By: ?<Electronically signed by Richard Stroud MD in OV> ?09/26/24 1546 ? DD/ 1030 ? TD/TT: 09/26/24 1100 ? Enterprise Architect Manager: ? Procedure Note Juan J, Image - 09/26/2024 [facility] [address] [place] [address] Mammography Report Signed Patient: Sridevi Max#: [id number] : 1Acct:[id number] Age/Sex: 74 / FADM Date: 09/26/24 Loc: [facility] Attending Dr: Nicky Wilson MD Ordering Physician: Nicky Wilsonults: Date of Service: 09/26/24Follow Up: Procedure(s): XR DEXA axial skeleton Accession Number(s): [id number] cc: Nicky Wilson MD EXAMINATION: DXA BONE DENSITY AXIAL HISTORY: Estrogen deficiency TECHNIQUE: Definition 6 Dual energy absorptiometry (DEXA) of the lumbar spine, distal forearm, total right hip, and femoral neck was performed. COMPARISON: There are no prior studies for comparison. FINDINGS: The bone mineral density of the lumbar spine is 1.259 with a T-score of 0.8, and a Z-score of 1.7. This is likely artificially elevated due to degenerative disc disease. The bone mineral density of the right total hip is 1.344 with a T-score of 2.7, and a Z-score of 3.7. This is likely artificially elevated due to osteoarthritis. The bone mineral density of the right femoral neck is 1.868 with a T-score of 6.0, and a Z-score of 7.3. This is likely artificially elevated due to osteoarthritis. The bone mineral density of the distal forearm is 0.706 with a T-score of -1.9, and a Z-score of 0.2. FRACTURE RISK: The FRAX index suggests a risk of major osteoporotic fracture of 3.4%, and of hip fracture 0.0%. MM/XR DEXA axial skeleton IMPRESSION: Based on bone mineral density, and according to World Health Organization (WHO) criteria, the diagnosis is consistent with osteopenia. All bone density values are in grams per centimeter squared (g/cm2). Statistically, 68% of repeat scans fall within 1 SD (+/- 0.010 g/cm2 for AP spine L1-L4) and 1 SD (+/- 0.012 g/cm2 for femur total) FRAX is a trademark of the [employer]'s [place] [facility] Metabolic [employer] Disease, a World Health Organization (WHO) Collaborating Center. Electronically signed by: Richard Stroud MD 09/26/2024 03:46 PM EST Dictated By: Richard Stroud MD Signed By: <Electronically signed by Richard Stroud MD in OV> 09/26/24 1546 DD/ 1030 TD/TT: 09/26/24 1100 Enterprise Architect Manager: us Nicky Wilson MD IMG DXA PROCEDURES Final Resu lt * BI Mammogram Screening Tomosynthesis Bilateral (05/25/2024 11:00 AM EDT) Anatomical Region Laterality Modality Breast Bilateral Mammography 05/25/2024 11:0 0 AM EDT Narrative 06/02/2024 10:01 AM EDT ? [facility] [place] ? [address] ?[place], [place] [address] ? Mammography Report ? Signed ? Patient: Krystal Max ?MR#: [id number] ? : 1950 ?Acct:[id number] ? Age/Sex: 74 / F ?ADM Date: 05/25/24 ? Loc: HO.MAMMO ? Attending Dr: Nicky Wilson MD ? Ordering Physician: Nicky Wilson MD ?Results: 1Ne ?? gative ? Date of Service: 05/25/ ?Follow Up: 1 Year From Orig ?? inal Mammogram ? Procedure(s): MM tomosynthesis screening BI ?? Accession Number(s): [id number] ? cc: Nicky Wilsno MD ? EXAMINATION: ?? MM SCREENING DIGITAL [...] DD/ 1100 ? TD/TT: 05/25/24 1126 ? Enterprise Architect Manager: ? Procedure Note Juan J Image - 06/02/2024 [place] [facility] [address] [place] [address] Mammography Report Signed Patient: Sridevi Max#: [id number] : 1Acct:[id number] Age/Sex: 74 / FADM Date: 05/25/24 Loc: LEY[facility] Attending Dr: Nicky Wilson MD Ordering Physician: Nicky Wilsonesults: 1Ne gative Date of Service: 05/25/24Follow Up: 1 Year From Orig inal Mammogram Procedure(s): MM tomosynthesis screening BI Accession Number(s): [id number] cc: Nicky Wilson MD EXAMINATION: MM SCREENING [...] 06/02/24 0958 DD/ 1100 TD/TT: 05/25/24 1126 Enterprise Architect Manager: Nicky Wilson MD IMG BI PROCEDURES Final Resul t from Last 3 Months or Most Recently Relevant to Health Maintenance Insurance [facility] MEDICARE ADVANTAGE HMO Care Teams Corking Machine Operator Relationship Specialty Start Date End Date Nicky Wilson MD [address] [place] [id number] PCP - General Family Medicine 12/29/18
--- OUTSIDE RECORDS SUMMARY | 2024-11-20 08:56 | XMS_ITS ---
Author Organization [facility] Care Team Providers Care Coal Trimmer Name Role Phone Darshan Rodriguez Unavailable Unavailable Felipa Win Unavailable Unavailable Allergies and adverse reactions Code CodeSystem Substance Reaction Severity StartDate Concern Status Tomato - raw only Skin react ion - finding (code- 655953684, SNOMED CT) Unknown 12/12/2018 active Care Team Name Role Address Phone Organization Dates Darshan Rodriguez PCP [address], [address], [place] (Office): : [facility] 12/02/2018 - 12/20/2018 Felipa Win Attending Physician [address], [address], [place] (Office): [facility] 12/02/2018 - 12/20/2018 Immunizations Immunization Status Vaccine Details Vaccine Code CodeSystem Date Notes Influenza completed Influenza, split virus, trivalent, injectable, contains preservative 141 CVX created date: 12/02/2018 administere d date: 11/27/2018 TB 2 Step Mantoux Skin Test completed tuberculin skin test; unspecified formulation expiry: 05/15/2020 Mfg: [employer] Given 0.1 ml Right Forearm intradermally Step 1 of Multi-step 98 CVX created date: 12/02/2018 consent date: 12/10/2018 administere d date: 12/10/2018 TB 2 Step Mantoux Skin Test completed tuberculin skin test; unspecified formulation lotNumber: [id number] expiry: 05/05/2020 Mfg: [employer] Given 0.1 ml Right Forearm intradermally Step 1 of Multi-step 98 CVX created date: 12/04/2018 consent date: 12/03/2018 administere d date: 12/04/2018 Mental Status Section Date Assessment Total Score Description 12/20/2018 BIMS 14 cognitively int act CAM 4 Delirium indica james PHQ-9 09 mild depression 12/15/2018 BIMS 14 cognitively int act CAM 4 Delirium indica james PHQ-9 15 moderately sophie re depression Problems Problem # Description Date of onset Resolved Date Code CodeSystem Concern Status 1 CHRONIC OBSTRUCTIVE PULMONARY DISEASE, UNSPECIFIED 12/16/[address] active 2 OTHER ABNORMALITIES OF GAIT AND MOBILITY 12/07/[address] active 3 ACUTE DIASTOLIC (CONGESTIVE) HEART FAILURE 12/03/[address] active 4 ESSENTIAL (PRIMARY) HYPERTENSION 12/03/[address] active 5 HEART FAILURE, UNSPECIFIED 12/03/[address] active 6 LOCALIZED EDEMA 12/03/[address] active 7 LOW BACK PAIN 12/03/[address] active 8 OBSTRUCTIVE SLEEP APNEA (ADULT) (PEDIATRIC) 12/03/[address] active 9 OTHER LACK OF COORDINATION 12/03/[address] active 10 PAIN IN RIGHT SHOULDER 12/03/[address] active 11 PRIMARY OSTEOARTHRITIS, RIGHT SHOULDER 12/03/[address] active 12 RESPIRATORY FAILURE, UNSPECIFIED WITH HYPOXIA 12/03/[address] active 13 SECONDARY POLYCYTHEMIA 12/03/[address] active 14 SHORTNESS OF BREATH 12/03/[address] active 15 UNSPECIFIED ATRIAL FLUTTER 12/03/[address] active 16 UNSPECIFIED FRACTURE OF SHAFT OF HUMERUS, RIGHT ARM, SUBSEQUENT ENCOUNTER FOR FRACTURE WITH ROUTINE HEALING 12/03/[address] active 17 WEAKNESS 12/03/[address] active Reason for Referral No Reasons for Referral Entered Social History Social History Observation Description Start Date End Date Code Code System Current Smoking Status Tobacco smoking consumption unknown 180983171 SNOMED CT Sex Assigned At Female 1950 58511-1 [facility] Vital Signs Code Code System Vitals Name Values and Units Timing Information 99649-3 [facility] O2 % BldC Oximetry Value=95.0 Units= % 12/21/2018 9279-1 [facility] Respiratory Rate Value=18.0 Units=/m in 12/20/2018 8462-4 [facility] Blood Pressure-Diastolic Value=70 Un its=mmHg 12/20/2018 8480-6 [facility] Blood Pressure-Systolic Sycwd=444 Un its=mmHg 12/20/2018 8310-5 [facility] Body Temperature Value=98.0 Units=?? F 12/20/2018 8867-4 [facility] Heart rate Value=86.0 Units=/min 02/2019 76464-9 [facility] Pain Level Value=0.0 12/20/2018 74726-7 [facility] Weight Ehjxm=492.6 Units=Lbs 02/2019 8302-2 [facility] Height Value=67.0 Units=Inches 12/03/2018
--- OUTSIDE RECORDS SUMMARY | 2024-11-20 08:56 | XMS_ITS | Encounter Summary ---
Author Organization [employer] Address [address] [place] [address] [address] [place] [address] Care Team Providers Care Lead Front End Developer Name Role Phone Nicky Wilson MD Primary Care Provider [phone] Encounter Details Date Type Department Care Team (Late st Contact Info) Description 07/08/2022 Abstract [facility] [address] [place] [address] ProviderSusanna MD Social History Tobacco Use Types [...] Description 11/28/2024 11:30 AM EDT Office Visit [facility] [address] [place] [address] Nicky Wilson MD [address] [place] [address] documented as of this encounter Visit Diagnoses Not on filedocumented in this encounter Care Teams Lead Front End Developer Relationship Specialty Start Date End Date Nicky Wilson MD [address] [place] [address] PCP - General Family Medicine 12/29/18 documented as of this encounter
[2024-11-20 13:59] LABS: MANUAL DIFF FLAG NO
[2024-11-20 14:06] LABS: Basophils Absolute Auto 0.1 X10*3/uL (0.0-0.2); Basophils Percent Auto 0.7 % (0-2); Eosinophils Absolute Auto 0.1 X10*3/uL (0.0-0.4); Hematocrit 38.6 % (37.0-47.0); Hemoglobin 12.8 g/dl (12.0-16.0); Imm Gran Abs Auto 0.02 X10*3/uL (0.00-0.03); Imm Gran Pct Auto 0.3 % (0.0-0.4); Lymphocytes Absolute Auto 1.4 X10*3/uL (1.2-4.9); Lymphocytes Percent Auto 20.4 % (20-40); Mean Corpuscular HGB Conc 33.2 g/dl (31.0-35.0); Mean Corpuscular Hemoglobin 29.6 pg (27.0-33.0); Mean Corpuscular Volume 89.1 fL (80.0-98.0); Mean Platelet Volume 10.6 fL (9.4-12.3); Monocytes Absolute Auto 0.6 X10*3/uL (0.1-1.2); Monocytes Percent Auto 8.2 % (2-11); Neutrophils Absolute Auto 4.8 x10*3/uL (2.0-8.3); Neutrophils Percent Auto 68.4 % (45-73); Platelet Count 238 X10*3/uL (160-400); Red Blood Count 4.33 X10*6/uL (4.20-5.50); Red Cell Distribution Width 13.4 % (11.0-16.0); White Blood Count 7.1 X10*3/uL (4.8-10.8)
[2024-11-20 14:21] LABS: Estimated Average Glucose 128 mg/dL; Hemoglobin A1C 148.6871 umol/L; Hemoglobin A1c % 6.1 % (<6.0); Total Hemoglobin (HGBA1C) 3408.3678 umol/L
[2024-11-20 14:31] LABS: Creatinine Urine 325.37 mg/dL; Microalbum/Creatinine Ratio Ur 7.6 ug/mg cr (<30)
[2024-11-20 14:40] LABS: TSH reflex Free T4 2.42 uIU/mL (0.32-4.0); Vitamin D 25-OH Total 34.9 ng/mL (>30)
[2024-11-20 14:43] LABS: Anion Gap 12 (12-20)
[2024-11-20 15:02] LABS: Alanine Aminotransferase 23 U/L (0-31); Albumin Level 4.1 g/dL (3.5-5.0); Alkaline Phosphatase 83 U/L (39-117); Aspartate Amino Transferase 37 U/L (5-31); Bilirubin Direct 0.3 mg/dL (0.0-0.5); Bilirubin Total 0.6 mg/dL (0.0-1.0); Blood Urea Nitrogen 11 mg/dL (9-16); Calcium 9.8 mg/dL (8.4-10.2); Carbon Dioxide 28 mmol/L (22-29); Chloride 105 mmol/L (96-108); Cholesterol 133 mg/dL (<200); Estimated Glomerular Filt Rate > 60; Glucose Fasting 85 mg/dL (60-99); HDL Cholesterol 49 mg/dL (>40); LDL Cholesterol Calculated 51 mg/dL (<100); Sodium 141 mmol/L (135-145); Total Protein 6.9 g/dL (6.5-8.0); Triglycerides 169 mg/dL (<150)
== END 2024-11-20 08:25 | disposition home or self-care (01) ==
LOC: HO.CHCLDS 08:24
PROVIDERS: Visit Provider Pediatrics
DX: I10 Essential (primary) hypertension (principal); Z12.11 Encounter for screening for malignant neoplasm of colon; D75.1 Secondary polycythemia; G47.33 Obstructive sleep apnea (adult) (pediatric); Z13.1 Encounter for screening for diabetes mellitus
CPT/HCPCS: 36415; 80048; 80061; 80076; 82043; 82306; 82570; 83036; 84443; 85025

== ENCOUNTER 2024-12-14 09:31 | Outpatient (AMB) | payer MEDICARE, SELFPAY ==
--- NOTE | 2024-12-14 09:57 | A.OFFVIS_ITS ---
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/Rt heart failure, AFib Intake Note: New patient dx heart failure and afib was at [facility] switching here Allergies No Known Allergies Allergy (Verified 12/14/24 10:07) Medication List - Last Reconciled 12/14/24 by Yusuf French MD albuterol sulfate 90 mcg/actuation inhalation apixaban (Eliquis) 5 mg PO BID aspirin (Adult Aspirin Regimen) 81 mg PO DAILY atorvastatin 40 mg PO DAILY diltiazem HCl CD 120 mg PO DAILY furosemide 40 mg PO DAILY multivitamin 1 tab PO DAILY umeclidinium-vilanterol 62.5-25 mcg/actuation (Anoro Ellipta) 1 ea inhalation DAILY HPI Comments Details: Thank you for referring Krystal in cardiology consultation today for management of atrial fibrillation and heart failure history. Patient was a pleasant 74-year- old female who was admitted back in 2019 with worsening shortness of breath significant leg edema and subsequently at that time was diagnose with COPD exacerbation. She was also noted to be in atrial fibrillation and subsequently also had right heart failure syndrome with RV dysfunction suspected to be related to COPD exacerbation. At that time she also had mild LV systolic dysfunction. She has not had any since then. However she has done well as an outpatient has not had any recurrent hospitalization related to heart failure or COPD. She was stopped smoking many years prior to that. She does see a pulmonary but has to switch to a new pulmonary doctor due to recent change in her insurance. 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 She has been taking Eliquis regularly. She also however he is on low-dose aspirin therapy for unclear reasons. She has never had any vascular events. She has never had a stress test. Echocardiogram as mentioned above was done in 2019. She is currently taking all her medications. She denies any prolonged palpitation irregular heartbeat. Denies any leg swelling, PND, weight gain, abdominal distension. She does have difficulty lying flat due to her COPD. She does not use oxygen at this point time. [facility] Medical History Right heart failure COPD (chronic obstructive pulmonary disease) Paroxysmal atrial fibrillation Surgical History Hx of hysterectomy Family History Father No problems noted. Mother Diabetes Social History Patient Tobacco Use Status: Former Tobacco user Review of Systems Const Denies chills, Denies daytime sleepiness, Denies fatigue, Denies fever(s), Denies frequent falls, Denies poor appetite, Denies snoring, Denies stops breathing during sleep, Denies weakness, Denies weight gain and Denies weight loss Eyes Denies loss of vision ENT Denies dizziness and Denies hearing loss Card Reports chest pain, Denies claudication, Denies leg edema, Denies lightheadedne ss, Denies palpitations, Reports dyspnea, Reports dyspnea on exertion and Reports orthopnea Resp Denies cough, Denies excessive phlegm production, Reports dyspnea, Reports dys pnea on exertion, Denies snoring and Denies wheezing GI Denies abdominal pain, Denies hematochezia, Denies change in bowel habits, Denies nausea and Denies vomiting Denies urinary frequency and Denies dysuria Musc Denies arthralgias, Denies muscle weakness, Denies numbness and Denies other (frequent falls) Skin/Breast Denies nail changes and Denies rash Neuro Denies Abnormal speech present, Denies dizziness, Denies frequent falls, Denies loss of vision, Denies memory loss, Denies numbness and Denies weakness Psych Denies depression and Denies memory loss Endo Denies fatigue and Denies palpitations Fermin/Lymph Reports easy bruising and Reports other (anemia) Aller/Immun Denies wheezing Physical Exam Vital Signs: Last Vital Signs Pulse 72 12/14/24 09:59 BP 142/66 H 12/14/24 09:59 BMI result Body Mass Index 32.5 Const General: cooperative, comfortable, no acute distress, alert and awake Nutritional Appearance: obese Orientation/consciousness: patient oriented x3 Limitations: ambulation with walker HEENT Head: Yes normocephalic and Yes atraumatic Neck Neck: Yes trachea midline, Yes supple and Yes no JVD Resp Effort & Inspection: normal respiratory effort Auscultation: clear to auscultation bilaterally, no rales, no wheezes and diminished lung sounds Cardio Jugular venous distension: no JVD Palpation: normal PMI Rate: regular rate Rhythm: regular rhythm Heart sounds: S1 normal heart sound present, S2 normal heart sound present, no click, no gallops, no murmurs and no rubs GI Auscultation: normal bowel sounds Skin General skin exam: no rashes or lesions noted Neuro General: patient oriented x3 and no focal motor deficits Speech: No Abnormal speech present Extrem General: Yes no clubbing, cyanosis or edema Psych Appearance: grossly normal Office Procedures EKG Details: EKG shows normal sinus rhythm with poor R-wave progression, most likely due to body habitus and lead placement [id number]-[id number], Complete Assessment & Plan Assessment & Plan (1) Right heart failure: Code(s): I50.810 - Right heart failure, unspecified Category: Medical Plan: Prior history of predominantly right heart failure syndrome in 2019 when she was admitted with COPD exacerbation with hypoxemic respiratory failure with RV dysfunction noted at that time. Question related to cor pulmonale from hypoxem ia is unclear. She has had no follow-up testing done. She had mild LV systolic dysfunction at that time. She has not had any significant diastolic dysfunction noted. However will need to like to repeat her echocardiogram at this point time to assess LV as well as RV function. If she was significant persistent RV dysfunction may need change in therapy from Cardizem to metoprolol therapy. Also consider CPAP therapy. Continue aggressive management COPD as well as hypoxemia. Consider nocturnal oxygen evaluation to see if she will require oxygen therapy at nighttime. Continue current diuretic therapy. Daily weight monitoring avoidance salt loading was discussed additional diuretics as need be. Can consider addition of SGLT2 inhibitor therapy for heart failure although she is not currently inclined to do the same. (2) Paroxysmal atrial fibrillation: Code(s): I48.0 - Paroxysmal atrial fibrillation Category: Medical Plan: Paroxysmal atrial fibrillation without any recurrent episodes. She has been maintained on Cardizem therapy. This will need to be readdressed after echocardiogram. No need for antiarrhythmic drug therapy at this point time as she has had no symptomatic atrial fibrillation remains in sinus rhythm. Agree with continued oral anticoagulation therapy, currently on Eliquis 5 mg b.i.d.. Semi annual renal function test to be pursued. There is no indication for additional aspirin therapy as she has not had any vascular her bleeding risk. This was discussed with therapy and she was agreeable to come off the aspirin therapy. (3) Short of breath on exertion: Code(s): R06.02 - Shortness of breath Category: Medical Plan: Shortness of breath on exertion in his most likely related to her weight deconditioning as well as underlying pulmonary parenchymal disease although she also has symptoms of chest heaviness when she exerts and need to rule out myocardial ischemia. She has never had coronary evaluation would suggest a vasodilating myocardial perfusion imaging for the same. Also suggest echocardiogram as above to evaluate for LV and RV systolic function. Continue optimization for pulmonary therapy. Continue to participate in weight loss program gradually. Will follow up in the clinic in 6 months time, sooner p.r.n.. Thank you for allowing me to partake in her care Orders: Orders CA echo transthoracic complete Today R06.02 - Shortness of breath CA lexiscan stress w sulema Today R06.02 - Shortness of breath Medications: New apixaban (Eliquis) 5 mg PO BID 180 tabs 2RF R06.02 - Shortness of breath Coding Level of Care Code New Pt Level 4 (60716) Complex EM visit Add On G2211 Diagnoses Right heart failure I50.810 Paroxysmal atrial fibrillation I48.0 Short of breath on exertion R06.02 CPT Codes EKG - CPT: 85867-[id number], Complete ([id number])
[2024-12-14 09:59] VITALS: BP 142/66; PULSE 72; BMI 32.5
--- OUTSIDE RECORDS SUMMARY | 2024-12-14 10:26 | XMS_ITS | Encounter Summary ---
Author Organization [employer] Address [address] [place] [address] [address] [place] [address] Care Team Providers Care Electric Motor Rebuilder Name Role Phone Nicky Wilson MD Primary Care Provider [phone] Reason for Visit * Reason Comments Med Refill Encounter Details Date Type Department Care Team (Late st Contact Info) Description 12/27/2022 Refill [facility] [address] [place] [address] Bernice Montgomery MD [address] [place] [address] Social History Tobacco Use Types Packs/Day Years [...] on filedocumented in this encounter Care Teams Electric Motor Rebuilder Relationship Specialty Start Date End Date Nicky Wilson MD [address] [place] [address] PCP - General Family Medicine 12/29/18 documented as of this encounter
--- OUTSIDE RECORDS SUMMARY | 2024-12-14 10:26 | XMS_ITS | Clinical Summary ---
Author Organization [facility] Address [address] [place] [address] Phone Care Team Providers Care Computer Forensic Examiner Name Role Phone Nicky Wilson MD Primary Care Provider [phone] Social History Tobacco Use Types Packs/Day Years Used Date Smoking Tobacco: Never Assessed Comments Unknown Sex and Gender Information Value Date Recorded Sex Assigned at Not on file Legal Sex Female 11:51 PM EST Gender Identity Not on file Sexual Orientation Not on file Plan of Treatment Upcoming Encounters Date Type Department Care Team ([facility] Contact Info) Description 12/26/2024 11:00 AM EDT Consult Pulmonolgy - [place] [address] [id number] Milagros Reyes MD [address] [address] Health Maintenance Due Date Last Done Comments [...] age to complete this topic Meningococcal B Vaccine Aged Out No l onger eligible based on patient's age to complete this topic RSV Immunization Patients Un britany 20 months Aged Out No longer eligible b ased on patient's age to complete this topic Varicella Vaccines Aged Out No longer eligible based on patient's age to complete this topic Insurance [employer] MEDICARE Care Teams Computer Forensic Examiner Relationship Specialty Start Date End Date Nicky Wilson MD [address] [place] [address] PCP - General 03/21/19
--- OUTSIDE RECORDS SUMMARY | 2024-12-14 10:26 | XMS_ITS | Encounter Summary ---
Author Organization [employer] Address [address] [place] [address] [address] [place] [address] Care Team Providers Care Coke Crane Operator Name Role Phone Nicky Wilson MD Primary Care Provider [phone] Reason for Visit * Reason Comments Med Refill Encounter Details Date Type Department Care Team ([facility] st Contact Info) Description 12/12/2024 Refill [facility] [address] [place] [address] Nicky Wilson MD [address] [place] [address] Social History Tobacco Use Types Packs/Day Years [...] on filedocumented in this encounter Care Teams Coke Crane Operator Relationship Specialty Start Date End Date Nicky Wilson MD [address] [place] [address] PCP - General Family Medicine 12/29/18 documented as of this encounter
--- OUTSIDE RECORDS SUMMARY | 2024-12-14 10:26 | XMS_ITS | Encounter Summary ---
Author Organization [employer] Address [address] [place] [address] 7t [place] [address] Care Team Providers Care Vice President Network Development Name Role Phone Nicky Wilson MD Primary Care Provider [phone] Reason for Visit * Reason Comments Med Refill Encounter Details Date Type Department Care Team (Late st Contact Info) Description 05/22/2023 Refill [facility] [address] [place], [place] [id number] Nicky Wilson MD [address] [place] [address] Social History Tobacco Use Types Packs/Day Years [...] on filedocumented in this encounter Care Teams Vice President Network Development Relationship Specialty Start Date End Date Nicky Wilson MD [address] [place] [address] PCP - General Family Medicine 12/29/18 documented as of this encounter
--- OUTSIDE RECORDS SUMMARY | 2024-12-14 10:26 | XMS_ITS | Data Portability ---
Author Organization [facility] [employer] [facility], Main Office Address [address] [facility] [place] [address] Care Team Providers Care Medical Center Representative Name Role Phone MALI LEOS 1ST FLOOR [...] By Organization Details Last Modified Time 12/19/2018 [id number] d/c home with O2 , meds, nebs and services. f/u with pcp in 1-2 weeks f/u with cardiology and pulm as scheduled. [email or web address] Not available 12/19/2018 09:39:26 Reason for Referral None Reported. Problems Name Problem SNOMED Code Status Onset Date Resolution Date Notes Provider Name and Address Organization Details Recorded Time Congestive heart failure 03660209 Active 2018 [employer] [facility] [address], [place], [address], [facility] [employer] 9 13:26:01 Obstructive sleep apnea syndrome 46085934 Active 2018 [facility] [address] , [address], [place], [address], [place] [employer] 9 13:26:05 Atrial flutter 4016297 Active [address], [address], [place], [address], [address] 9 13:26:14 Fracture of the lateral humeral epicondyle 200492467 Active [address], [address], [place], [address], [address] 9 13:26:25 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 [address], [address], [place], [address], [address] 9 13:26:59 Acute hypoxemic respiratory failure 076657207 Active [address], [facility] [address], [place], [address], [address] 9 13:27:13 Arthritis of joint of right shoulder region 7431663767606 101 Active [address], [address], [place], [address], [address] 9 13:27:31 Hyperlipide kale 47142957 Active [address], [address], [place], [address], [facility] 9 13:39:56 Chronic obstructive pulmonary disease 84797524 Active 2018 Felipa Win MD [address] [place] [address], [facility] [address], [place], [address], [address] 9 13:03:17 Problem Notes None recorded. Medical [...] L/min 18 /min 130 mm[Hg] 73 mm[Hg] [address], [address], [place], [address], [address] 9 14:02:33 Date Recorded Body height Body mass index (BMI) Body weight Heart rate Respiratory rate Body temperature Oxygen saturation Oxygen saturation in Arterial blood by Pulse oximetry Inhaled oxygen flow rate Systolic blood pressure Diastolic blood pressure Provider Name and Address Organization Details Last Updated DateTime 9 170.18 cm 28.8 kg/m2 23849 g 92 /min 18 /min 97.8 [degF] 93 % 93 % 2 L/min 154 mm[Hg] 80 mm[Hg] Felipa Win MD [address] [facility], [facility] [address], [place], [address], [address] 9 13:51:37 Date Recorded Body height Body mass index (BMI) Body weight Heart rate Respiratory rate Body temperature Oxygen saturation Oxygen saturation in Arterial blood by Pulse oximetry Inhaled oxygen flow rate Systolic blood pressure Diastolic blood pressure Provider Name and Address Organization Details Last Updated DateTime 9 170.18 cm 28.7 kg/m2 03654.8 4 g 88 /min 18 /min 97.5 [degF] 91 % 91 % 1.5 L/min 155 mm[Hg] 85 mm[Hg] Felipa Win MD [address] [facility] [address], [place], [address], [address] 9 12:48:37 Date Recorded Body height Heart rate Systolic blood pressure Diastolic blood pressure Provider Name and Address Organization Details Last Updated DateTime 12/19/2018 170.18 cm 92 /min 135 mm[Hg] 85 mm[Hg] Cassandra Delgadillo [address] 12/19/2018 09:34:01 Social History Question Answer Notes LastModified by Organizat ion Details LastModified Time Tobacco Smoking Status Former Smoker Not Available [employer] 06/11/2020 03:13:22 Do You Have An Advance Directive? Yes DNI/DNR/no Art Hydration, No Dialysis, Ok For Hospitaliz ation, And Art. Hydration. [id number] Information not available 06/11/2020 What Is Your Level Of Alcohol Consumption? Occasional [id number] Information not available 06/11/2020 How Much Tobacco Do You Chew? None [id number] Information not available 06/11/2020 Do You Have A Medical Power Of Field Map Technician? No [id number] Information not available 06/11/2020 What Was The Date Of Your Most Recent Tobacco Screening? 12/15/2018 [id number] Information not available 06/11/2020 Has Tobacco Cessation Counseling Been Provided? No Quit 5 Yrs Ago [id number] Information not available 06/11/2020 How Many Years Have You Smoked Tobacco? 35 Smoked 1 Ppd For 35 Yrs. [id number] Information not available 06/11/2020 Sex: Unknown Functional [...] SNOMED-CT Code Diagnosis ICD10 Code Diagnosis Note [id number] JT JACKSON MALI DAFNE [address] [place] [address] 12/03/2018 13:24:20 12/09/2018 11:06:03 Congestive heart failure 73384738 I50.41 See HPI, new dxlikely sys and llamas. dysfunctio nLasix 40 mg BIDhome 02 with goal of 88%-92%fol low up with cards outpt as neededmoni tor fluid volume and resp statusdail y weights , Add YOLANDA stockings daily on AM off qhs Obstructiv e sleep apnea syndrome 09659870 G47.33 Has sleep study consistent with SHANE [...] cannot wear the face mask. Atrial flutter 7238792 I 48.3 Cardizem 120 mg dailyeliqu is 5 mg BIDASA 81 mg dailymonit or rate Fracture o f the lateral humeral epicondyle 222946611 S42.434A Fell on ice two years ago, chronic pain to areaF/U with ortho to determine surgical future Hyperlipidemia 72834420 E78.2 Atorvastat in 40 mg dailymonit or lipids every 6 months Acute hypo xemic respiratory failure 916860141 J96.01 Duonebs q 4 hours PRNmonitor resp status [id number] Felipa Win MD [address] [place] [address] 12/08/2018 13:44:37 12/09/2018 12:29:08 Congestive heart failure 46724787 I50.41 Much improved with diuresis of ~30#. Continue Lasix 40 mg BID. Monitor daily wts, edema and resp. status.Con tinue TEDs stockings. F/U with cardio as outpt. Obstructiv e sleep apnea syndrome 96900895 G47.33 New dx of SHANE inpt. Now on BiPAP parameters written as 29/04 with at least 3 liters 02 QHS, but will titrate O2 flow to sats 90-92% Atrial flutter 7129203 I 48.3 Now in reg. rhythm. Continue diltiazem 120 mg qd, eliquis 5 mg BID and ASA 81 mg qd.Monitor rate Fracture o f the lateral humeral epicondyle 568542447 S42.434A Fell on ice two years ago, chronic pain to areaF/U with ortho to determine tx. Pt. would rather not have surgery. Hyperlipidemia 11388763 E78.2 Continue atorvastat in 40 mg qd.Monitor lipids as outpt. Acute hypo xemic respiratory failure 716621722 J96.22 J96.21 Likely from COPD. Continues with [...] resp status. Needs pulmonary f/u as outpt. [id number] Felipa Win MD MALI DAFNE [address] [place] [address] 12/15/2018 12:32:46 12/21/2018 08:45:59 Chronic obstructive pulmonary disease 25620449 J43.1 Untxed for yrs. Pt. has clearly [...] this point. Acute hypo xemic respiratory failure 158717488 J96.22 J96.21 Likely from COPD as above. Continues with need for supplement al O2. Should keep sats between 90-92%, but NO HIGHER THAN 93% due to pt's hx of retaining CO2. Monitor resp status. Needs pulmonary f/u as outpt. Congestive heart failure 67162985 I50.41 Much improved with diuresis of ~30#. Continue Lasix 40 mg BID. Monitor daily wts, edema and resp. status.Con varun GUERREROs stockings. F/U with cardio as outpt. Obstructiv e sleep apnea syndrome 61817589 G47.33 New dx of SHANE inpt. Now on BiPAP parameters written as 29/04 with at least 3 liters 02 QHS, but will titrate O2 flow to sats 90-92% [id number] GREGORY OH [address] [facility] [place] [address] 12/19/2018 07:58:06 12/21/2018 09:44:20 Chronic obstructive pulmonary disease 62414355 J43.1 -untreated for for yrs. -Artem d/c home with O2 to maintain improved cardio/res p. health. Pt. understand s that with pulmonary rehab she may be able to taper her use to with activity only. -Continue duonebs q hrs prn and albuterol nebs q 4 hrs prn. -She appears back to her baseline at this point. Acute hypo xemic respiratory failure 765858356 J96.22 J96.21 d/t COPD as above. Continues with need for supplement al O2. Should keep sats between 90-92%, but NO HIGHER THAN 93% due to pt's hx of retaining CO2. Monitor resp status. Needs pulmonary f/u as outpt. Congestive heart failure 26025673 I50.41 Much improved with diuresis of ~30#. Continue Lasix 40 mg BID. Monitor daily wts, edema and resp. status.Con tinue TEDs stockings. F/U with cardio as outpt. Obstructiv e sleep apnea syndrome 55752976 G47.33 New dx of SHANE inpt. Now [...] [employer] Member ID Guarantor Name 12/03/2018 1 [facility] (MEDICARE REPLACEMENT/A DVANTAGE - HMO) [id number] Krystal Max [id number] Krystal Max 12/08/2018 1 [facility] (MEDICARE REPLACEMENT/A DVANTAGE - HMO) [id number] Krystal Max [id number] Krystal Max 12/15/2018 1 [facility] (MEDICARE REPLACEMENT/A DVANTAGE - HMO) [id number] Krystal Max [id number] Krystal Max 12/19/2018 1 [facility] (MEDICARE REPLACEMENT/A DVANTAGE - HMO) [id number] Krystal Max [id number] Krystal Winter Notes Date Note Type Note [...] to PCP in many years. JT JACKSON [address] [place] [address], [address], [place], [address], [facility] [employer] 12/09/2018 09:41:08 12/08/2018 text/html This is a [...] the 60s and she was sent to [facility] by ambulance. Eval showed hypercarbia in addition [...] of SVT/A flutter. Felipa Win MD [address] [facility], [address], [place], [address], [facility] [employer] 12/08/2018 15:08:26 12/15/2018 text/html i am asked [...] of SVT/A flutter. Felipa Win MD [address] [facility], [address], [place], [address], [address] 12/15/2018 13:10:11 12/19/2018 text/html i am asked [...] of SVT/A flutter. Cassandra carbajal [place] - [facility] 12/19/2018 09:39:37 OBGyn Episode No OBEpisode recorded.
--- OUTSIDE RECORDS SUMMARY | 2024-12-14 10:26 | XMS_ITS | Encounter Summary ---
Author Organization [employer] Address [address] [place] [address] [address]t [place] [address] Care Team Providers Care Outsole Molder Name Role Phone Nicky Wilson MD Primary Care Provider [phone] Encounter Details Date Type Department Care Team (Late st Contact Info) Description 07/08/2022 Abstract [facility] [address] [place] [address] Provider, MD Susanna Social History Tobacco Use [...] on filedocumented in this encounter Care Teams Outsole Molder Relationship Specialty Start Date End Date Nicky Wilson MD [address] [place] [address] PCP - General Family Medicine 12/29/18 documented as of this encounter
--- OUTSIDE RECORDS SUMMARY | 2024-12-14 10:26 | XMS_ITS | Clinical Summary ---
Author Organization [employer] Address [address] [facility] [address] [place] [address] Care Team Providers Care Obstetrical Anesthesiologist Name Role Phone Nicky Wilson MD Primary Care Provider [phone] Allergies Active Allergy Reactions Criticality Noted Date [...] MORNING 60 each 3 05/30/20 24 Active atorvastatin (Lipitor) 40 MG tablet Take 1 tablet by mouth. 04/19/20 19 Active aspirin 81 MG EC tablet Take 1 tablet by mouth Once per day. 12/03/19 Active Umeclidinium-Vi lanterol (Anoro Ellipta) 62.5-25 MCG/ACT aerosol powder Inhale 1 puff Once per day. 60 each 10/09/19 25 Active atorvastatin (Lipitor) 40 MG [...] MORNING 90 tablet 1 10/24/19 25 Active Eliquis 5 MG tablet TAKE ONE TABLET BY MOUTH TWICE DAILY 180 tablet 1 12/13/19 25 Active apixaban (Eliquis) 5 MG tablet TAKE ONE TABLET TWICE DAILY 180 tablet 1 06/14/20 24 2024 Discontinued Active Problems Problem Noted Date Diagnosed Date Osteopenia after menopause 11/28/2024 Acute hypoxemic respiratory failure 07/06/2024 Chronic right-sided heart failure 07/06/2024 Chronic obstructive lung disease 12/29/2018 06/10/2023 Atrial fibrillation and flutter 12/29/2018 06/10/2023 Obstructive sleep apnea syndrome 12/29/2018 06/10/2023 Essential (primary) hypertension 12/02/2018 06/10/2023 Secondary polycythemia 12/02/2018 3 Encounters Date Type Department Care Team Description 12/12/2024 Refill [facility] [address] [place] [address] iNcky Wilson MD 11/28/2024 11:30 AM EDT Office Visit [facility] [address] [place] [address] Nicky Wilson MD Mixed simple and mucopurulent chronic bronchitis (CMS/HCC) (Primary Dx); Dietary counseling; Exercise counseling; Chronic right-sided heart failure (CMS/HCC); Essential (primary) hypertension; Atrial fibrillation and flutter (CMS/HCC); Osteopenia after menopause 11/28/2024 Travel 11/27/2024 Telephone [facility] [address] [place] [address] Nicky Wilson MD Chart Prep 11/19/2024 Orders Only [facility] [address] [place] [address] Nicky Wilson MD Mixed simple and mucopurulent chronic bronchitis (CMS/HCC) (Primary Dx); Secondary polycythemia 11/17/2024 Telephone [facility] [address] [place] [address] Nicky Wilson MD Appointment Request 11/17/2024 Telephone [facility] [address] [place] [phone] Nicky Wilson MD Call Back Request 11/17/2024 Telephone [facility] [address] [place] [address] Nicky Wilson MD Referral 10/21/2024 Refill [facility] [address] [place] [address] Nicky Wilson MD 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 ([facility]/HCC) 10/19/2024 Refill [facility] [address] [place] [address] Nicky Wilson MD Dyslipidemia 10/19/2024 Refill [facility] [address] [place] [address] Nicky Wilson MD Dyslipidemia 10/12/2024 Telephone [facility] [address] [place] [address] Nicky Wilson MD 10/09/2024 Refill [facility] [address] [place] [address] Nicky Wilson MD 10/06/2024 Refill [facility] [address] [place] [address] Nicky Wilson MD from Last 3 Months [...] Sign Reading Time Taken Comments Blood Pressure 140/70 11/28/2024 11:45 AM EDT Pulse 87 11/28/2024 11:15 AM EDT Temperature 36.2 ??C (97.2 ??F) 11/28/2024 11:15 AM E DT Respiratory Rate 20 11/28/2024 11:15 AM EDT Oxygen Saturation 89% 11/28/2024 11:15 AM EDT Inhaled Oxygen Concentration - - Weight 95.7 kg (211 lb) 11/28/2024 11:15 AM EDT Height 170.2 cm (5' 7 ) 07/06/2024 9:58 AM EST Body Mass Index 33.05 07/06/2024 9:58 AM EST Plan of Treatment Health Maintenance Due Date Last Done Comments CT Colonography 1950 Colonoscopy 1950 Depression Screening 1950 FIT 1950 FOBT 1950 SDOH Screening 1950 Sigmoidoscopy 1950 Alcohol/Substance Use Screening 1963 Hepatitis C Screening 1969 Zoster Vaccines (1 of 2) 2001 Pneumococcal Vaccine: 50+ Years (2 of 2 - PPSV23) 03/23/2019 01/26/2019 Diabetes: Hemoglobin A1C 11/20/2025 11/20/2024 Tobacco Screening 11/28/2025 11/28/2024 Mammogram 05/25/2026 05/25/2024, 12/2022, 05/20/2022, Additional history exists Colorectal Cancer Screening 11/23/2027 FIT DNA/Cologuard 11/23/2027 11/22/2024 Lipid Panel 11/20/2029 11/20/2024 DTaP/Tdap/Td Vaccines (2 - Td or Tdap) 11/18/2034 11/18/2024 RSV Patients and Patients Aged 60 years [...] Procedure Name Priority Date/Time Associated Diagnosis Comments LAB COLOGUARD?? COLON CANCER SCREEN Routine 11/22/2024 8:57 AM EDT Screening for colon cancer ALBUMIN, RANDOM URINE W/CREATININE Routine 11/20/2024 8:30 AM EDT Screening for colon cancer Essential (primary) hypertension Secondary polycythemia Obstructive sleep apnea syndrome LIPID PANEL, STANDARD Routine 11/20/2024 8:26 AM EDT Screening for colon cancer Essential (primary) hypertension Secondary polycythemia Obstructive sleep apnea syndrome VITAMIN D,25-OH,TOTAL,IA Routine 11/20/2024 8:26 AM EDT Screening for colon cancer Essential (primary) hypertension Secondary polycythemia Obstructive sleep apnea syndrome TSH W/REFLEX TO FT4 Routine 11/20/2024 8 :26 AM EDT Screening for colon cancer Essential (primary) hypertension Secondary polycythemia Obstructive sleep apnea syndrome HEPATIC FUNCTION PANEL Routine 8:26 AM EDT Screening for colon cancer Essential (primary) hypertension Secondary polycythemia Obstructive sleep apnea syndrome HEMOGLOBIN A1C Routine 11/20/2024 8:26 AM EDT Screening for colon cancer Essential (primary) hypertension Secondary polycythemia Obstructive sleep apnea syndrome CBC WITH AUTO DIFFERENTIAL Routine 11/20/2024 8:26 AM EDT Screening for colon cancer Essential (primary) hypertension Secondary polycythemia Obstructive sleep apnea syndrome BASIC METABOLIC PANEL, FASTING Routine 11/20/2024 8:26 AM EDT Screening for colon cancer Essential (primary) hypertension Secondary polycythemia Obstructive sleep apnea syndrome BD DEXA AXIAL Routine 09/26/2024 10:30 AM EST Osteopenia, unspecified location BI MAMMOGRAM SCREENING TOMOSYNTHESIS BILATERAL Routine 05/25/2024 11:00 AM EDT from Last 3 Months or Most Recently Relevant to Health Maintenance Results * (ABNORMAL) Cologuard?? colon cancer screening (11/22/2024 8:57 AM EDT) Cologuard Result Positive( A) Negative 11/28/2024 8:41 AM EDT [facility] (CLIA #:[id number]) Comment: POSITIVE TEST RESULT. A positive Cologuard result should be followed with a colonoscopy or visual examination of the colon. The normal value (reference range) for this assay is negative. TEST DESCRIPTION: Composite algorithmic analysis of stool DNA-biomarkers with hemoglobin immunoassay. ?? Quantitative values of individual biomarkers are not reportable and are not associated with individual biomarker result reference ranges. Cologuard is intended for colorectal cancer screening of adults of either sex, 45 years or older, who are at average-risk for colorectal cancer (CRC). Cologuard has been approved for use by the U.S. FDA. The performance of Cologuard was established in a cross sectional study of average-risk adults aged 50-84. Cologuard performance in patients ages 45 to 49 years was estimated by sub-group analysis of near-age groups. Colonoscopies performed for a positive result may find as the most clinically significant lesion: colorectal cancer [4.0%], advanced adenoma (including sessile serrated polyps greater than or equal to 1cm diameter) [20%] or non- advanced adenoma [31%]; or no colorectal neoplasia [45%]. These estimates are derived from a prospective cross-sectional screening study of 10,000 individuals at average risk for colorectal cancer who were screened with both Cologuard and colonoscopy. (Serjio Braga et al, N Engl J Med 2014;370(14):3730-8244.) Cologuard may produce a false negative or false positive result (no colorectal cancer or precancerous polyp present at colonoscopy follow up). A negative Cologuard test result does not guarantee the absence of CRC or advanced adenoma (pre-cancer). The current Cologuard screening interval is every 3 years. ([place] [employer] and U.S. Multi-Society Task Force). Cologuard performance data in a 10,000 patient pivotal study using colonoscopy as the reference method can be accessed at the following location: www.[facility]/results. Additional description of the Cologuard test process, warnings and precautions can be found at www.Tigermedrd.com. Stool specimen (specimen) 11/22/2024 8:57 AM EDT 11/23/2024 12:49 PM EDT us Nicky Wilson MD LAB MOLECULAR DIAGNOSTICS ORD ERABLES Final Result [facility] (CLIA #:[id number]) [address] [phone], * Albumin, Random Urine W/Creatinine (11/20/2024 8:30 AM EDT) Creatinine, Urine 325.37 mg/dL [facility] Microalbumin Urine 25.0 mg/L [facility] Microalbum Creatinine Ratio Ur 7.6 <30 ug/mg cr [facility] Comment:Albumin/Creatinine R atio Reference Ranges: Normal: < 30 ug/mg creatinine Microalbuminuria: 30 - 300 ug/mg creatinineClinical Albuminuria: > 300 ug/mg creatinine Urine (Urine, Random) 11/20/2024 8:30 AM EDT 11/20/2024 1:52 PM EDT us Nicky Wilson MD LAB URINE ORDERABLES Final Re sult [facility] [address] [place] [phone] * Basic Metabolic Panel, Fasting (11/20/2024 8:26 AM EDT) Sodium 141 135 - 145 mmol/L [facility] Potassium 4.0 3.3 - 5.1 mmol/L [facility] Chloride 105 96 - 108 mmol/L [facility] Carbon Dioxide 28 22 - 29 mmol/L [facility] Anion Gap 12 12 - 20 [facility] Urea Nitrogen (BUN) 11 9 - 16 mg/dL [facility] Creatinine, Serum 0.76 0.5 - 1.4 mg/dL [facility] Estimated Glomerular Filt Rate >60 [facility] Comment:Chronic Kidney Disea se: Estimated GFR < 60 mL/min/1.30w9Sxbrgr Kidney Disease: Estimated GFR < 15 mL/min/1.73m2 Glucose Fasting 85 60 - 99 mg/dL [facility] Calcium 9.8 8.4 - 10.2 mg/dL [facility] Blood Venous blood specimen / Unknown 11/20/2024 8:26 AM EDT 11/20/2024 1:56 PM EDT us Nicky Wilson MD LAB BLOOD ORDERABLES Final Re sult Performing Organization Address City/[facility] [address]/ZIP Co de Phone Number [facility] [address] [place] [address] [phone] * Vitamin D, 25-Hydroxy, Total, Immunoassay (11/20/2024 8:26 AM EDT) Vitamin D 25-OH Total 34.9 >30 ng/mL [facility] Comment: Health Based Reference Values*< 20 ??ng/mL ??Flengbggz94-99 ng/mL ??Insufficient> 30 ??ng/mL ??Sufficient*Svetlana STUART. N Engl J Med. 2007;357:266-280There is no well-established upper level of normal vitamin Dlevels. Some laboratories use 50 ng/mL as an upper limit ofnormal. However, toxicity is patient-dependent and may occurat any level. Careful correlation with the patient'spresentation is necessary and, if there is concern forvitamin D toxicity, treatment should be consideredirrespective of the serum level.Care must be taken in interpreting Vitamin D results fromdifferent laboratories and methodologies. ??Published datademonstrated that results from patients undergoinghemodialysis may show a negative bias when tested withvarious automated 25-OH vitamin D assays when compared toLC- MS/MS.When testing samples from patients whose predominant form ofVitamin D is Vitamin D2, such as patients receiving VitaminD2 supplementation, results that are subtherapeutic shouldbe confirmed with another method such as LC-MS/MS. Blood Venous blood specimen / Unknown 11/20/2024 8:26 AM EDT 11/20/2024 1:56 PM EDT Nicky Wilson MD LAB BLOOD ORDERABLES Final Re sult Performing Organization Address [facility] [address]/ZIP Co de Phone Number [facility] [address] [place] [address] [phone] * TSH W/Reflex to FT4 (11/20/2024 8:26 AM EDT) TSH reflex Free T4 2.42 0.32 - 4.0 uIU/mL [facility] Blood Venous blood specimen / Unknown 11/20/2024 8:26 AM EDT 11/20/2024 1:56 PM EDT us Nicky Wilson MD LAB BLOOD ORDERABLES Final Re sult [facility] [address] [place] [address] [phone] * CBC auto differential (11/20/2024 8:26 AM EDT) White Blood Count 7.1 4.8 - 10.8 X10*3/uL [facility] Red Blood Count 4.33 4.20 - 5.50 X10*6/uL [facility] Hemoglobin 12.8 12.0 - 16.0 g/dl [facility] Hematocrit 38.6 37.0 - 47.0 % [facility] Mean Corpuscular Volume 89.1 80.0 - 98.0 fL [facility] Mean Corpuscular Hemoglobin 29.6 27.0 - 33.0 pg [facility] Mean Corpuscular HGB Conc 33.2 31.0 - 35.0 g/dl [facility] Red Cell Distribution Width 13.4 11.0 - 16.0 % [facility] Platelet Count 238 160 - 400 X10*3/uL [facility] Mean Platelet Volume 10.6 9.4 - 12.3 fL [facility] Neutrophils Percent Auto 68.4 45 - 73 % [facility] Imm Gran Pct Auto 0.3 0.0 - 0.4 % [facility] Lymphocytes Percent Auto 20.4 20 - 40 % [facility] Monocytes Percent Auto 8.2 2 - 11 % [facility] Eosinophils Percent Auto 2.0 0 - 4 % [facility] Basophils Percent Auto 0.7 0 - 2 % [facility] NRBC Pct Auto 0.0 0.0 - 0.2 /100WBC [facility] Neutrophils Absolute Auto 4.8 2.0 - 8.3 x10*3/uL [facility] Imm Gran Abs Auto 0.02 0.00 - 0.03 X10*3/uL [facility] Lymphocytes Absolute Auto 1.4 1.2 - 4.9 X10*3/uL [facility] Monocytes Absolute Auto 0.6 0.1 - 1.2 X10*3/uL [facility] Eosinophils Absolute Auto 0.1 0.0 - 0.4 X10*3/uL [facility] Basophils Absolute Auto 0.1 0.0 - 0.2 X10*3/uL [facility] NRBC Abs Auto 0.000 0.0 - 0.012 X10*3/uL [facility] Blood Venous blood specimen / Unknown 11/20/2024 8:26 AM EDT 11/20/2024 1:56 PM EDT us Nicky Wilson MD LAB BLOOD ORDERABLES Final Re sult [facility] [address] [place] [phone] * (ABNORMAL) Hemoglobin A1c (11/20/2024 8:26 AM EDT) Hemoglobin A1c 6.1(H) <6.0 % [facility] Comment:Hemoglobin A1C Refer ence Range Adults: 4.8 - 6.0 % Non diabetic: < 6.0 % Goal: < 7.0 %Additional Action Suggested: > 8.0 %Note: Hemoglobin A1c results are invalid for patients with abnormal amounts of HbF. Blood transfusions may impact the HbA1c concentration in the patient sample. Estimated Average Glucose 128 mg/dL [facility] Comment:eAG = Estimated ave rage glucose which is %A1C expressed asaverage glucose, using the formula of the [id number] Glucose study (ADAG), Diabetes Care, Vol.31,#8,2007 Blood Venous blood specimen / Unknown 11/20/2024 8:26 AM EDT 11/20/2024 1:56 PM EDT Nicky Wilson MD LAB BLOOD ORDERABLES Final Re sult Performing Organization Address [facility] [address]/[facility] de Phone Number [facility] [address] [place] [phone] * (ABNORMAL) Hepatic Function Panel (11/20/2024 8:26 AM EDT) Bilirubin, Total 0.6 0.0 - 1.0 mg/dL [facility] Bilirubin, Direct 0.3 0.0 - 0.5 mg/dL [facility] Aspartate Amino Transferase 37(H) 5 - 31 U/L [facility] Alanine Aminotransferase 23 0 - 31 U/L [facility] Total Protein 6.9 6.5 - 8.0 g/dL [facility] Albumin Level 4.1 3.5 - 5.0 g/dL [facility] Alkaline Phosphatase 83 39 - 117 U/L [facility] Blood Venous blood specimen / Unknown 11/20/2024 8:26 AM EDT 11/20/2024 1:56 PM EDT Nicky Wilson MD LAB BLOOD ORDERABLES Final Re sult Performing Organization Address [facility] [address]/[facility] de Phone Number [facility] [address] [place] [phone] * (ABNORMAL) Lipid Panel, Standard (11/20/2024 8:26 AM EDT) Triglycerides 169(H) <150 mg/dL [facility] Comment:Slight Lipemia.Víctor able Triglyceride: less than 150 mg/dLBorderline High Triglyceride 150-199 mg/dLHigh Triglyceride: 200-499 mg/dLVery High Triglyceride: greater than or equal to 5OO mg/dL Cholesterol 133 <200 mg/dL [facility] Comment:Desirable Cholestero l: less than 200 mg/dLBorderline High Cholesterol: 200-239 mg/dLHigh Cholesterol: greater than 239 mg/dL LDL Cholesterol Calculated 51 <100 mg/dL [facility] Comment:Desirable LDL: less than 100 mg/dLNear Optimal/Above Optimal LDL: 110- 129 mg/dLBorderline High LDL: 130-159 mg/dLHigh LDL: 160-189 mg/dLVery High LDL: greater than or equal to 190 mg/dL HDL Cholesterol 49 >40 mg/dL [facility] Comment:Desirable HDL: great er than 40 mg/dL Note: This HDL assay may give artificially low results in patients with liver disease. Blood Venous blood specimen / Unknown 11/20/2024 8:26 AM EDT 11/20/2024 1:56 PM EDT us Nicky Wilson MD LAB BLOOD ORDERABLES Final Re sult [facility] [address] [place] [phone] [phone] * BD DEXA Axial (09/26/2024 10:30 AM EST) Anatomical Region Laterality Modality Body Radiographic Lindsay ging 09/26/2024 10:3 0 AM EST Narrative 09/26/2024 3:49 PM EST ? [facility] [place] ? [address] [facility] ?[place] [address] ? Mammography Report ? Signed ? Patient: Winter,Krystal ?MR#: [id number] ? : 1950 ?Acct:[id number] ? Age/Sex: 74 / F ?ADM Date: 09/26/25 ? Loc: HO.MAMMO ? Attending Dr: Nicky Wilson MD ? Ordering Physician: Nicky Wilson MD ?Results: ? Date of Service: 09/26/24 ?Follow Up: ? Procedure(s): XR DEXA axial skeleton ?? Accession Number(s): [id number] ? cc: Nicky Wilson MD ? EXAMINATION: ??DXA BONE DENSITY AXIAL ? HISTORY: ??Estrogen deficiency ? TECHNIQUE: Frontstart Dual energy absorptiometry (DEXA) ?? of the [...] is a trademark of the [employer]'s ?? [facility] Metabolic Bone Disease, a World Health Organization (WHO) ?? Collaborating Center. ? Electronically signed by: ??Richard Stroud MD ??09/26/2024 03:46 PM EST ?? RP ? Dictated By: ?Richard Stroud MD ? Signed By: ?<Electronically signed by Richard Stroud MD in OV> ?09/26/24 1546 ? DD/ 1030 ? TD/TT: 09/26/24 1100 ? Financial Services Education Consultant: ? Procedure Note Juan J, Image - 09/26/2024 [facility] [address] [place] [address] Mammography Report Signed Patient: Sridevi Max#: [id number] : 1Acct:[id number] Age/Sex: 74 / FADM Date: 09/26/24 Loc: [facility] Attending Dr: Nicky Wilson MD Ordering Physician: Nicky Wilson MDResults: Date of Service: 09/26/24Follow Up: Procedure(s): XR DEXA axial skeleton Accession Number(s): [id number] cc: Nicky Wilson MD EXAMINATION: DXA BONE DENSITY AXIAL HISTORY: Estrogen deficiency TECHNIQUE: Frontstart Dual energy absorptiometry (DEXA) of the lumbar [...] is a trademark of the [employer]'s [facility], a World Health Organization (WHO) Collaborating Center. Electronically signed by: Richard Stroud MD 09/26/2024 03:46 PM [facility] Dictated By: Richard Stroud MD Signed By: <Electronically signed by Richard Stroud MD in OV> 09/26/24 1546 DD/ 1030 TD/TT: 09/26/24 1100 Financial Services Education Consultant: us Nicky Wilson MD IMG DXA PROCEDURES Final Resu lt * BI Mammogram Screening Tomosynthesis Bilateral (05/25/2024 11:00 AM EDT) Anatomical Region Laterality Modality Breast Bilateral Mammography 05/25/2024 11:0 0 AM EDT Narrative 06/02/2024 10:01 AM EDT ? [facility] ? [address] ?[place] [address] ? Mammography Report ? Signed ? Patient: Winter,Krystal ?MR#: [id number] ? : 1950 ?Acct:[id number] ? Age/Sex: 74 / F ?ADM Date: 05/25/24 ? Loc: HO.MAMMO ? Attending Dr: Nicky Wilson MD ? Ordering Physician: Nicky Wilson MD ?Results: 1Ne ?? gative ? Date of Service: 05/25/24 ?Follow Up: 1 Year From Orig ?? inal Mammogram ? Procedure(s): MM tomosynthesis screening BI ?? Accession Number(s): [id number] ? cc: Nicky Wilson MD ? EXAMINATION: [...] DD/ 1100 ? TD/TT: 05/25/24 1126 ? Financial Services Education Consultant: ? Procedure Note Anderson Arita - 06/02/2024 [place] [facility] [address] [place] [address] Mammography Report Signed Patient: Sridevi Max#: [id number] : 1Acct:[id number] Age/Sex: 74 / FADM Date: 05/25/24 Loc: HO.MAMMO Attending Dr: Nicky Wilson MD Ordering Physician: Nicky Wilsonesults: 1Ne gative Date of Service: 05/25/24Follow Up: 1 Year From Orig inal Mammogram Procedure(s): MM tomosynthesis screening BI Accession Number(s): [id number] cc: Nicky Wilson MD EXAMINATION: MM SCREENING [...] 06/02/24 0958 DD/ 1100 TD/TT: 05/25/24 1126 Financial Services Education Consultant: Nicky Wilson MD IMG BI PROCEDURES Final Resul t from Last 3 Months or Most Recently Relevant to Health Maintenance Insurance [employer] HMO Care Teams Obstetrical Anesthesiologist Relationship Specialty Start Date End Date Nicky Wilson MD [address] [place] [address] PCP - General Family Medicine 12/29/18
--- OUTSIDE RECORDS SUMMARY | 2024-12-14 10:26 | XMS_ITS | Encounter Summary ---
Author Organization [employer] Address [address] [place] [address] [address] [place] [address] Care Team Providers Care Energy Derivatives Trader Name Role Phone Nicky Wilson MD Primary Care Provider [phone] Encounter Details Date Type Department Care Team (Late st Contact Info) Description 07/08/2022 Abstract [facility] [address] [place] [address] Provider, MD Susanna Social History Tobacco Use [...] on filedocumented in this encounter Care Teams Energy Derivatives Trader Relationship Specialty Start Date End Date Nicky Wilson MD [address] [place] [address] PCP - General Family Medicine 12/29/18 documented as of this encounter
--- OUTSIDE RECORDS SUMMARY | 2024-12-14 10:26 | XMS_ITS | Encounter Summary ---
Author Organization [employer] Address [address] [place] [address] [address] [place] [address] Care Team Providers Care Instrument Assembly Supervisor Name Role Phone Nicky Wilson MD Primary Care Provider [phone] Reason for Visit * Reason Comments Med Refill Encounter Details Date Type Department Care Team ([facility] st Contact Info) Description 11/28/2022 Refill [facility] [address] [place] [address] Nicky Wilson MD [address] [place] [address] Social History Tobacco Use Types Packs/Day Years [...] on filedocumented in this encounter Care Teams Instrument Assembly Supervisor Relationship Specialty Start Date End Date Nicky Wilson MD [address] [place] [address] PCP - General Family Medicine 12/29/18 documented as of this encounter
--- OUTSIDE RECORDS SUMMARY | 2024-12-14 10:26 | XMS_ITS | Encounter Summary ---
Author Organization [employer] Address [address] [facility] 7 [place] [address] Care Team Providers Care Oil Separator Name Role Phone Nicky Wilson MD Primary Care Provider [phone] Reason for Visit * Reason Onset Date Comments Referral 11/17/2024 Encounter Details Date Type Department Care Team ([facility] st Contact Info) Description 11/17/2024 Telephone [facility] [address] [place] [address] Nicky Wilson MD [address] [place] [address] Referral Social History Tobacco Use Types Packs/Day [...] referral be sent to Dr. Reyes at [facility] instead of the as sent to [place]. Routing to provider for new referral. * Telephone Encounter - Kp Rosado - 11/17/2024 10:42 AM EDT Tc from pt requesting a referral for Pulminary to be sent to Dr. Reyes at [facility]. Contact pt at [phone] documented in this encounter Plan of Treatment Not on file documented as of this encounter Visit Diagnoses Not on filedocumented in this encounter Care Teams Oil Separator Relationship Specialty Start Date End Date Nicky Wilson MD [address] [place] [address] PCP - General Family Medicine 12/29/18 documented as of this encounter
== END 2024-12-14 10:40 | disposition home or self-care (01) ==
LOC: HO.HCS 09:32
PROVIDERS: PCP Pediatrics; Visit Provider Internal Medicine Cardiovascular Disease
DX: I50.810 Right heart failure, unspecified (principal); I48.0 Paroxysmal atrial fibrillation; R06.02 Shortness of breath
CPT/HCPCS: 93010; 99204; G2211

== ENCOUNTER → 2024-12-14 09:31 | Outpatient (BNVA) | payer MEDICARE, SELFPAY | PROVIDERS: PCP Pediatrics; Visit Provider Internal Medicine Cardiovascular Disease | DX: I50.810 Right heart failure, unspecified (principal); I48.0 Paroxysmal atrial fibrillation; R06.02 Shortness of breath; R94.31 Abnormal electrocardiogram [ECG] [EKG] | CPT/HCPCS: 93005; 99202 ==

== ENCOUNTER → 2025-02-05 10:20 | Outpatient (REF) | payer MEDICARE, SELFPAY ==
--- NOTE | 2025-02-05 10:22 | CA_ITS ---
Transthoracic Echocardiogram Patient (Last, First, Middle): Krystal Max, Gender: Female Date of : 1950 Age: 75 Procedure Date: 02/05/2025 Procedure Type: Transthoracic Echocardiogram Location: OP Height: 170.18 cm Weight: 95.26 kg BSA: 2.06 m2 Heart Rate: bpm BP: 124 / 80 mmHg Hide Examiner: Referring MD: Yusuf French MD Symptoms: R06.02 - Shortness of breath Study Quality: Good ECG Rhythm: Sinus Conclusions: - The left ventricular systolic function is normal. The calculated ejection fraction is 63% by biplane method. - No obvious valvular pathology seen on this study. Findings Left Ventricle Normal left ventricular cavity size. There is normal left ventricular wall thickness. The left ventricular systolic function is normal. The calculated ejection fraction is 63% by biplane method. There is no evidence of regional wall motion abnormalities. Evidence suggests grade I (mild) diastolic dysfunction. Right Ventricle Mildly increased right ventricular cavity size. There is normal right ventricular systolic function. Atria Both atria are normal in size. Aortic Valve There is a normal trileaflet aortic valve. There is no aortic valve stenosis. There is no aortic valve regurgitation. Mitral Valve The mitral valve appears normal. There is trace mitral valve regurgitation. There is no mitral valve stenosis. Pulmonic Valve The pulmonic valve is likely normal. Tricuspid Valve There is trace tricuspid valve regurgitation. There is no evidence of pulmonary hypertension. Great Vessels The asc aorta is normal in size. Venous The inferior vena cava is normal in size and collapses greater than 50% with inspiration. Pericardium/Pleural There is no evidence of pericardial effusion. Prior Study Comparison No prior study available for comparison. Recommendations, Care & Conclusions No obvious valvular pathology seen on this study. Measurements 2D Linear Measurements IVSd: 0.97 0.6-0.9/0.6-1.0 cm LVIDd: 5.21 3.9-5.3/4.2-5.9 cm LVIDd Index: 2.53 2.4-3.2/2.2-3.1 cm/m2 LVIDs: 3.14 2.0-3.6 cm LVPWd: 0.97 0.7-1.1 cm Ao Root: 3.10 2.1-3.5 cm LA Diam: 4.10 2.7-3.8/3.0-4.0 cm LAIDs Index: 1.99 1.5-2.3 cm/m2 LV Mass: 233.39 67-162/88-224 g LV Mass Index: 113.30 43-95/49-115 g/m2 LVOT Diam: 2.30 3.0+(-)1.3 cm 2D Systolic Function EF 4C: 58.20 >55% EF 2C: 67.60 >55% EF BiP: 62.80 >55% Mitral Valve MV Pk E: 0.66 MV PK A: 1.14 MV Decel Time: 322.00 E/A: 0.60 E'Lateral: 8.70 E'Medial: 5.87 E/E' Med: 11.30 E/E' Lat: 7.60 PHT: 94.00 MVA PHT: 2.34 Decel Baca: 2.06 Aortic Valve AoV Pk Nikita: 1.87 AoV Mn Nikita: 1.07 AoV VTI: 0.37 AoV Pk Grad: 14.00 Aov Mn Grad: 6.00 MARIA ELENA Cont.VTI: 2.77 LVOT LVOT Pk Nikita: 1.10 LVOT Mn Nikita: 0.64 LVOT VTI: 0.25 LVOT Pk Grad: 5.00 LVOT Mn Grad: 2.00 LVOT Diam: 2.30 LVOT Area: 4.15 Diastolic Function MV Pk E: 0.66 MV Pk A: 1.14 E/A: 0.60 E'Medial: 5.87 E/E' Med: 11.30 E' Laterial: 8.70 E/E' Lat: 7.60 Right Ventricle TAPSE (mm): 33.00 TVS' Nikita: 14.00 Tricuspid Valve TR Pk Nikita: 2.61 TR Pk Grad: 27.00 RA Press: 3.00 RVSP: 30.00 Great Vessels Aorta Ao Root-2D: 3.10 2.0-3.7 cm Ao Asc: 3.50 2.1-3.4 cm Pulmonary Valve PV Pk Nikita: 1.06 Peak PV Grad: 4.00 Updated in Other Vendor System with Status of Final Soto Marshall MD electronically signed on 02/06/2025 12:13:58 PM with status of Final
--- OUTSIDE RECORDS SUMMARY | 2025-02-05 11:32 | XMS_ITS | Encounter Summary ---
Author Organization [employer] Address [address] [place] [address] 7t [place] [address] Care Team Providers Care Crepe Sole Wire Brusher Name Role Phone Nicky Wilson MD Primary Care Provider [phone] Reason for Visit * Reason Comments Med Refill Encounter Details Date Type Department Care Team ([facility] st Contact Info) Description 05/22/[address] [facility] [address] [place], [place] [phone] Nicky Wilson MD [address] [place] [address] Social History Tobacco Use Types Packs/Day Years [...] on filedocumented in this encounter Care Teams Crepe Sole Wire Brusher Relationship Specialty Start Date End Date Nicky Wilson MD [address] [place] [address] PCP - General Family Medicine 12/29/18 documented as of this encounter
== END ==
LOC: HO.CARD 10:20
PROVIDERS: PCP Pediatrics; Visit Provider Internal Medicine Cardiovascular Disease
DX: R06.02 Shortness of breath (principal)
CPT/HCPCS: 93306

== ENCOUNTER → 2025-02-05 10:22 | Outpatient (BNV) | payer MEDICARE, SELFPAY | PROVIDERS: PCP Pediatrics; Visit Provider Internal Medicine | DX: I50.1 Left ventricular failure, unspecified (principal) | CPT/HCPCS: 93306 ==

== ENCOUNTER → 2025-03-08 09:22 | Outpatient (REF) | payer MEDICARE, SELFPAY ==
--- NOTE | ~2025-03-08 | NM_ITS ---
Lexiscan Myocardial perfusion study Indication: Shortness of breath on exertion to evaluate for myocardial ischemia Technique: The patient was brought in for a Lexiscan perfusion study on 03/08/2025 and was injected 0.4 mg of Lexiscan intravenously. Within a minute of this injection 30 mCi of sestamibi was given intravenously. Images were obtained using the SPECT gamma camera interlaced with the gating device. Images were obtained in supine position. Resting perfusion study was performed on 03/09/2025. Patient was administered 30 mCi of sestamibi intravenously at rest. Images were then obtained in supine position. Images obtained without without CT attenuation. Total DLP 118 mGy-cm. Images were processed with the software and compared side to side in short axis, horizontal long axis and vertical long axis views. Findings: The stress perfusion study showed nonattenuated images show normal uptake of radiotracer in all segments of the LV myocardium. Attenuated corrected images show minimal thinning of the distal anterior wall of the LV myocardium. There is suggestion of left ventricular hypertrophy. The gated study shows normal LV systolic function with calculated LVEF of 54%. LV cavity is normal in size. The gated study shows normal systolic wall thickening and contraction of segments. Resting study shows no change in perfusion pattern compared to stress perfusion study. Gating at rest was not performed. The findings are consistent with normal myocardial perfusion. NM/NM sulema perf SPECT rest & str Impression: 1. Myocardial perfusion imaging study shows normal myocardial perfusion 2. Gated LVEF is 54% 3. Transient ischemic dilatation not present [Nondiagnostic changes on EKG. Electronically signed by: Yusuf French MD 03/09/2025 01:58 PM EDT
--- NOTE | 2025-03-08 09:24 | CA_ITS ---
Acquisition Time: 2025-03-08 10:20:25 Total Exercise Time: 00:02:00 Test Indications: AFIB HF Medications: ALBUTEROL ELIQUIS ASA ATORVASTATIN DILTIAZEM FUROSEMIDE Protocol: LEXISCAN Max HR: 109 BPM 74% of Pred: 146 BPM Max BP: 152/74 mmHG Max Work Load: 1.0 METS Pharmacological stress test with Lexiscan while pt moves her legs in chair, with reports of SOB, headache, and lightheadedness, with isolated PACs, with normotensive response to injection. Nondiagnostic EKG for ischemia. In recovery, pt treated with IVP Aminophylline 75 mg to reverse Lexiscan after which pt feeling back to baseline. Nuclear images pending. Test reviewed with Dr. Pandya. Referred By: Yusuf French Electronically Signed By: Darien Sellers
--- OUTSIDE RECORDS SUMMARY | 2025-03-08 09:54 | XMS_ITS | Data Portability ---
Author Organization [facility] [employer] [facility], Main Office Address [address] [place] [address] Care Team Providers Care Production Coordinator Name Role Phone MALI LEOS 1ST FLOOR [...] By Organization Details Last Modified Time 12/19/2018 [id number] d/c home with O2 , meds, nebs and services. f/u with pcp in 1-2 weeks f/u with cardiology and pulm as scheduled. [email or web address] Not available 12/19/2018 09:39:26 Reason for Referral None Reported. Problems Name Problem SNOMED Code Status Onset Date Resolution Date Notes Provider Name and Address Organization Details Recorded Time Congestive heart failure 31282189 Active 2018 JTDARCI JACKSON [address] [facility], [address], [place], [address], [facility] [employer] 9 13:26:01 Obstructive sleep apnea syndrome 95676478 Active 2018 [facility] [address] 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, [address], [place], [address], [email or web address] 9 13:03:17 Problem Notes None recorded. Medical Equipment None Reported. Allergies No known drug allergies Vitals Date Recorded Body temperature Heart rate Oxygen saturation Oxygen saturation in Arterial blood by Pulse oximetry Inhaled oxygen flow rate Respiratory rate Systolic And Diastolic Provider Name and Address Organization Details Last Updated DateTime 9 96 [degF] 89 /min 96 % 96 % 2 L/min 18 /min 130/73 mm[Hg] [address], [address], [place], [address], [email or web address] 9 14:02:33 Date Recorded Body height Body mass index (BMI) Body weight Heart rate Respiratory rate Body temperature Oxygen saturation Oxygen saturation in Arterial blood by Pulse oximetry Inhaled oxygen flow rate Systolic And Diastolic Provider Name and Address Organization Details Last Updated DateTime 9 170.18 cm 28.8 kg/m2 99204 g 92 /min 18 /min 97.8 [degF] 93 % 93 % 2 L/min 154/80 mm[Hg] Felipa Win MD [address] [facility] [address], [place], [address], [email or web address] 9 13:51:37 Date Recorded Body height Body mass index (BMI) Body weight Heart rate Respiratory rate Body temperature Oxygen saturation Oxygen saturation in Arterial blood by Pulse oximetry Inhaled oxygen flow rate Systolic And Diastolic Provider Name and Address Organization Details Last Updated DateTime 9 170.18 cm 28.7 kg/m2 18985.8 4 g 88 /min 18 /min 97.5 [degF] 91 % 91 % 1.5 L/min 155/85 mm[Hg] Felipa Win MD [address] [facility] [address], [place], [address], [email or web address] 9 12:48:37 Date Recorded Body height Heart rate Systolic And Diastolic Provider Name and Address Organization Details Last Updated DateTime 12/19/2018 170.18 cm 92 /min 135/85 mm[Hg] Cassandra Delgadillo [email or web address] 12/19/2018 09:34:01 Social History Question Answer Notes LastModified by Organizat ion Details LastModified Time Tobacco Smoking Status Former Smoker Not Available [employer] 06/11/2020 03:13:22 Do You Have An Advance Directive? Yes DNI/DNR/no Art Hydration, No Dialysis, Ok For Hospitaliza tion, And Art. Hydration. [id number] Information not available 06/11/2020 How Much Tobacco Do You Chew? None [id number] Information not available 06/11/2020 Do You Have A Medical Power Of Space Systems Operations Manager? No [id number] Information not available 06/11/2020 What Was The Date Of Your Most Recent Tobacco Screening? 12/15/2018 [id number] Information not available 06/11/2020 Has Tobacco Cessation Counseling Been Provided? No Quit 5 Yrs Ago [id number] Information not available 06/11/2020 How Many Years Have You Smoked Tobacco? 35 Smoked 1 Ppd For 35 Yrs. [id number] Information not available 06/11/2020 Sex: Unknown Functional Status Question Answer Note LastModified by Organizat ion Details LastModified Time What is your level of alcohol consumption? Occasional [id number] Information not available 06/11/2020 Mental Status None recorded. Family History Relationship [...] SNOMED-CT Code Diagnosis ICD10 Code Diagnosis Note 16430 JT LEOS [address] [place] [address] 12/03/2018 13:24:20 12/09/2018 11:06:03 Congestive heart failure 22983097 I50.41 See HPI, new dxlikely sys and llamas. dysfunctio nLasix 40 mg BIDhome 02 with goal of 88%-92%fol low up with cards outpt as neededmoni tor fluid volume and resp statusdail y weights , Add YOLANDA stockings daily on AM off qhs Obstructiv e sleep apnea syndrome 14474288 G47.33 Has sleep study consistent with SHANE [...] cannot wear the face mask. Atrial flutter 6711689 I 48.3 Cardizem 120 mg dailyeliqu is 5 mg BIDASA 81 mg dailymonit or rate Fracture o f the lateral humeral epicondyle 128294766 S42.434A Fell on ice two years ago, chronic pain to areaF/U with ortho to determine surgical future Hyperlipidemia 40135625 E78.2 Atorvastat in 40 mg dailymonit or lipids every 6 months Acute hypo xemic respiratory failure 612709463 J96.01 Duonebs q 4 hours PRNmonitor resp status [id number] Felipa Win MD [address] [place] [address] 12/08/2018 13:44:37 12/09/2018 12:29:08 Congestive heart failure 94633246 I50.41 Much improved with diuresis of ~30#. Continue Lasix 40 mg BID. Monitor daily wts, edema and resp. status.Con tinue TEDs stockings. F/U with cardio as outpt. Obstructiv e sleep apnea syndrome 00380643 G47.33 New dx of SHANE inpt. Now on BiPAP parameters written as 29/04 with at least 3 liters 02 QHS, but will titrate O2 flow to sats 90-92% Atrial flutter 5772575 I 48.3 Now in reg. rhythm. Continue diltiazem 120 mg qd, eliquis 5 mg BID and ASA 81 mg qd.Monitor rate Fracture o f the lateral humeral epicondyle 093729012 S42.434A Fell on ice two years ago, chronic pain to areaF/U with ortho to determine tx. Pt. would rather not have surgery. Hyperlipidemia 66168580 E78.2 Continue atorvastat in 40 mg qd.Monitor lipids as outpt. Acute hypo xemic respiratory failure 203100729 J96.22 J96.21 Likely from COPD. Continues with [...] resp status. Needs pulmonary f/u as outpt. [id number] MD MALI Posadas DAFNE [address] [place] [address] 12/15/2018 12:32:46 12/21/2018 08:45:59 Chronic obstructive pulmonary disease 49576737 J43.1 Untxed for yrs. Pt. has clearly [...] this point. Acute hypo xemic respiratory failure 663557516 J96.22 J96.21 Likely from COPD as above. Continues with need for supplement al O2. Should keep sats between 90-92%, but NO HIGHER THAN 93% due to pt's hx of retaining CO2. Monitor resp status. Needs pulmonary f/u as outpt. Congestive heart failure 81738700 I50.41 Much improved with diuresis of ~30#. Continue Lasix 40 mg BID. Monitor daily wts, edema and resp. status.Con tinue TEDs stockings. F/U with cardio as outpt. Obstructiv e sleep apnea syndrome 65310046 G47.33 New dx of SHANE inpt. Now on BiPAP parameters written as 29/04 with at least 3 liters 02 QHS, but will titrate O2 flow to sats 90-92% [id number] GREGORY OH [address] [place] [address] 12/19/2018 07:58:06 12/21/2018 09:44:20 Chronic obstructive pulmonary disease 55740704 J43.1 -untreated for for yrs. -Artem d/c home with O2 to maintain improved cardio/res p. health. Pt. understand s that with pulmonary rehab she may be able to taper her use to with activity only. -Continue duonebs q hrs prn and albuterol nebs q 4 hrs prn. -She appears back to her baseline at this point. Acute hypo xemic respiratory failure 481080041 J96.22 J96.21 d/t COPD as above. Continues with need for supplement al O2. Should keep sats between 90-92%, but NO HIGHER THAN 93% due to pt's hx of retaining CO2. Monitor resp status. Needs pulmonary f/u as outpt. Congestive heart failure 46549262 I50.41 Much improved with diuresis of ~30#. Continue Lasix 40 mg BID. Monitor daily wts, edema and resp. status.Con tinue TEDs stockings. F/U with cardio as outpt. Obstructiv e sleep apnea syndrome 82547807 G47.33 New dx of SHANE inpt. Now [...] ok for hospitalization, and art. hydration. Payers Insurance Date Sequence Insurance Name Policy Number Policy Koch Covered Member ID Koch Member ID Guarantor Name 12/21/2018 1 [facility] (MEDICARE REPLACEMENT/A DVANTAGE - HMO) [id number] Krystal Winter [id number] Krystal Winter Notes Date Note Type Note Provider Name and Address Organization Details Recorded Time 12/03/2018 text/html This is a 68 year old female seen today for initial intake [...] to PCP in many years. JT JACKSON [address] [facility], [address], [place], [address], [email or web address] 12/09/2018 09:41:08 12/08/2018 text/html This is a [...] the 60s and she was [place] [facility] [place]. Eval showed hypercarbia in [...] of SVT/A flutter. Felipa Win MD [address] [facility], [address], [place], [address], [email or web address] 12/08/2018 15:08:26 12/15/2018 text/html i am asked to see this 68 yo woman, with chronic resp [...] of SVT/A flutter. Felipa Win MD [address] [facility], [address], [place], [address], [email or web address] 12/15/2018 13:10:11 12/19/2018 text/html i am asked to see this 68 yo woman who was admitted [...] humerus fx, episode of SVT/A flutter. Cassandra carbajal, [email or web address] 12/19/2018 09:39:37 OBGyn Episode No OBEpisode recorded.
--- OUTSIDE RECORDS SUMMARY | 2025-03-08 09:54 | XMS_ITS | Clinical Summary ---
Author Organization [facility] Address [address] [place] [address] Phone Care Team Providers Care Senior Benefits Specialist Name Role Phone Nicky Wilson MD Primary Care Provider [phone] Allergies Active Allergy Reactions Criticality Noted Date Comments Tomato 12/12/2018 Other reaction(s): Cutaneous reactions Raw tomatoes Medications Anoro Ellipta 62.5-25 mcg/actuation inhaler Inhale 1 puff by mouth 1 (one) time each day. Active furosemide (LASIX) 40 mg tablet Take 1 tablet (40 mg total) by mouth 1 (one) time each day. 9 Active Eliquis 5 mg tablet Take 1 tablet (5 mg total) by mouth 2 (two) times a day. Active dilTIAZem CD (CARDIZEM CD) 120 mg 24 hr capsule Take 1 capsule (120 mg total) by mouth 1 (one) time each day. Active atorvastatin (LIPITOR) 40 mg tablet Take 1 tablet (40 mg total) by mouth at bedtime. 9 Active albuterol HFA (PROAIR HFA ; PROVENTIL HFA ; VENTOLIN HFA) 90 mcg/actuation inhaler Inhale 2 puffs by mouth every 4 (four) hours if needed. Active albuterol 2.5 mg /3 mL (0.083 %) nebulizer solution Take 3 mL (2.5 mg total) by nebulization Every 4 hours as needed for shortness of breath or wheezing. 3 Active mv-mn/folic ac/calcium/vit K1 (WOMEN'S 50 PLUS MULTIVITAMIN ORAL) Take 1 tablet by mouth 1 (one) time each day. Active Encounters Date Type Department Care Team Description 12/26/2024 11:00 AM EDT Consult Pulmonolgy [facility] [address] [id number] Milagros Reyes MD Chronic obstructive pulmonary disease, unspecified COPD type (CMS/HCC V24, CMS/HCC V28) (Primary Dx); SHANE (obstructive sleep apnea); Hypoxemia from Last 3 Months Social History Tobacco Use Types Packs/Day Years Used Date Smoking Tobacco: Never Assessed Comments Unknown Sex and Gender Information Value Date Recorded Sex Assigned at Not on file Legal Sex Female 11:51 PM EST Gender Identity Not on file Sexual Orientation Not on file Last Filed Vital Signs Vital Sign Reading Time Taken Comments Blood Pressure 132/70 12/26/2024 11:20 AM EDT Pulse 70 12/26/2024 11:20 AM EDT Temperature 36.4 C (97.6 F) 12/26/2024 11:20 AM EDT Respiratory Rate 18 12/26/2024 11:20 AM EDT Oxygen Saturation 94% 12/26/2024 11:20 AM EDT Inhaled Oxygen Concentration - - Weight 95.1 kg (209 lb 9.6 oz) 12/26/2024 11:20 AM EDT Height 170.2 cm (5' 7 ) 12/26/2024 11:20 AM EDT Body Mass Index 32.83 12/26/2024 11:20 AM EDT Plan of Treatment Upcoming Encounters Date Type Department Care Team (Late st Contact Info) Description 04/27/2025 10:00 AM EDT Ancillary Procedure Pulmonolgy - [place] [address] [phone] 07/05/2025 9:45 AM EST [facility] [address] [phone] Milagros Reyes MD [address] [address] Health Maintenance Due Date Last Done Comments Breast Cancer Screening 1950 Zoster Vaccines (1 of 2) 2001 Pneumococcal Vaccine: 50+ Years (2 of 2 - PPSV23) 03/23/2019 01/26/2019 Colorectal Cancer Screening: Colonoscopy 07/19/2022 Falls Risk Assessment 07/19/2022 Hepatitis C Screening 07/19/2022 Medicare Annual Wellness Visit 07/19/2022 Osteoporosis Screening (Bone Density Screening) 07/19/2022 Social Influencers of Health Screening 07/19/2022 Depression Screening 08/16/2024 COVID-19 Vaccine ( season) 2024 06/05/2024, 07/19/2023, 06/18/2022, Additional history exists Influenza Vaccine (#1) 2025 , 06/10/2023, 05/26/2022, Additional history exists Hypertension/CHF/CAD Annual BMP Blood Test 11/20/2025 11/20/2024 Cholesterol Screening (Lipid Panel) 11/20/2029 11/20/2024 DTaP,Tdap,and Td Vaccines (2 - Td or Tdap) 11/18/2034 11/18/2024 RSV Immunization Adult Patients Completed 07/19/2023 HIB Vaccines Aged Out No longer eligi [...] to complete this topic RSV Immunization Patients Under 20 months Aged Out No longer eligible based on patient's age to complete this topic Varicella Vaccines Aged Out No longer eligible based on patient's age to complete this topic Insurance [employer] MEDICARE Care Teams Senior Benefits Specialist Relationship Specialty Start Date End Date Nicky Wilson MD [address] [facility] [place] [address] PCP - General 03/21/19
--- OUTSIDE RECORDS SUMMARY | 2025-03-08 09:54 | XMS_ITS | Encounter Summary ---
Author Organization [employer] Address [address] [place] [address] 7t [place] [address] Care Team Providers Care Efficiency Expert Name Role Phone Nicky Wilson MD Primary Care Provider [phone] Reason for Visit * Reason Comments Med Refill Encounter Details Date Type Department Care Team ([facility] st Contact Info) Description 05/22/2023 Refill [facility] MED[facility]INE [address] [place], [place] [phone] Nicky Wilson MD [address] [place] [address] Social History Tobacco Use Types Packs/Day Years [...] on filedocumented in this encounter Care Teams Efficiency Expert Relationship Specialty Start Date End Date Nicky Wilson MD [address] [place] [address] PCP - General Family Medicine 12/29/18 documented as of this encounter
== END ==
LOC: HO.CARD 09:22
PROVIDERS: PCP Pediatrics; Visit Provider Internal Medicine Cardiovascular Disease
DX: R06.02 Shortness of breath (principal)
CPT/HCPCS: 78452; 93017; A9500; J0280; J2785

== ENCOUNTER → 2025-03-08 09:24 | Outpatient (BNV) | payer MEDICARE, SELFPAY | PROVIDERS: PCP Pediatrics | DX: R06.02 Shortness of breath (principal) | CPT/HCPCS: 78452; 93016; 93018 ==

== ENCOUNTER 2025-05-31 11:09 | Outpatient (REF) | payer MEDICARE, SELFPAY ==
--- OUTSIDE RECORDS SUMMARY | 2025-05-31 14:18 | XMS_ITS | Encounter Summary ---
Author Organization [employer] Address [address] [facility] 7t [place] [address] Care Team Providers Care Feather Renovator Name Role Phone Nicky Wilson MD Primary Care Provider [phone] Reason for Visit * Reason Onset Date Comments Referral 11/17/2024 Encounter Details Date Type Department Care Team ([facility] st Contact Info) Description 11/17/2024 Telephone [facility] MEDICINE [address] [place] [address] Nicky Wilson MD [address] [place] [phone] Referral Social History Tobacco Use Types Packs/Day [...] referral be sent to Dr. Reyes at [facility] instead of the as sent to [facility]. Routing to provider for new referral. * Telephone Encounter - Kp Del Vallenandez - 11/17/2024 10:42 AM EDT Tc from pt requesting a referral for Pulminary to be sent to Dr. Reyes at [facility] on [facility]. Contact pt at [phone] documented in this encounter Plan of Treatment Upcoming Encounters Date Type Department Care Team (Late st Contact Info) Description 08/01/2025 9:45 AM EST Office Visit [facility] MED & PEDS [address] [place] [address] Nicky Wilson MD [address] [place] [address] documented as of this encounter Visit Diagnoses Not on filedocumented in this encounter Care Teams Feather Renovator Relationship Specialty Start Date End Date Nicky Wilson MD [address] [place] [address] PCP - General Family Medicine 12/29/18 documented as of this encounter
--- OUTSIDE RECORDS SUMMARY | 2025-05-31 14:18 | XMS_ITS | Clinical Summary ---
Author Organization 175 [facility] Address 175 [place] [address] Phone Care Team Providers Care Curriculum Development Specialist Name Role Phone Nicky Wilson MD Primary Care Provider [phone] Allergies Active Allergy Reactions Criticality Noted Date [...] Encounters Date Type Department Care Team Description 04/27/2025 10:00 AM EDT Ancillary Procedure Pulmonology [facility] [address] [phone] Chronic obstructive pulmonary disease, unspecified COPD type (CMS/HCC V24, CMS/HCC V28) from Last 3 Months Social History Tobacco [...] Care Team (Late st Contact Info) Description 07/05/2025 9:45 AM EST Office Visit Pulmonology - [place] [address] [phone] Milagros Reyes MD [address] [address] Health Maintenance Due Date Last Done Comments Breast Cancer Screening 1950 Zoster Vaccines (1 of 2) 2001 Pneumococcal Vaccine: 50+ Years (2 of 2 - PPSV23, PCV20, or PCV21) 03/23/2019 01/26/2019 Falls Risk Assessment 07/19/2022 Hepatitis C Screening 07/19/2022 Medicare Annual Wellness Visit 07/19/2022 Osteoporosis Screening (Bone Density Screening) 07/19/2022 Social Influencers of Health Screening 07/19/2022 Depression Screening 08/16/2024 COVID-19 Vaccine ( season) 2025 06/05/2024, 07/19/2023, 06/18/2022, Additional history exists Influenza Vaccine (#1) 2025 , 06/10/2023, 05/26/2022, Additional history exists Hypertension/CHF/CAD Annual BMP Blood Test 11/20/2025 11/20/2024 Colorectal Cancer Screening: FIT-DNA (Cologuard) 11/23/2027 11/22/2024 Cholesterol Screening (Lipid Panel) 11/20/2029 11/20/2024 DTaP,Tdap,and [...] Procedure Name Priority Date/Time Associated Diagnosis Comments PULMONARY FUNCTION TESTING Routine 04/27/2025 10:04 AM EDT Chronic obstructive pulmonary disease, unspecified COPD type (CMS/[facility] V24, CMS/[facility] V28) from Last 3 Months Results * (ABNORMAL) Pulmonary function testing: Carbon Monoxide Diffusing Capacity, Spirometry with Bronchodilator, Vital Capacity Test, Flow Volume Loop (04/27/2025 10:04 AM EDT) Impressions Milagros Reyes MD - 04/27/2025 10:04 AM EDT 04/27/2025 Spirometry FEV1 is 36% normal, FVC is 57% normal, FEV1/FVC ratio is diminished, there is significant improvement in FEV1 post albuterol Lung volume TLC is 85% normal, RV/TLC is 136% normal Diffusion DLCO is 21% normal, In summary, this pulmonary function test shows severe obstructive changes with improvement post albuterol us Milagros Reyes MD PFT ORDERABLES Final Result from Last 3 Months Insurance [employer] MEDICARE Care Teams Curriculum Development Specialist Relationship Specialty Start Date End Date Nicky Wilson MD [address] [place] [phone] PCP - General 03/21/19
--- OUTSIDE RECORDS SUMMARY | 2025-05-31 14:18 | XMS_ITS | Encounter Summary ---
Author Organization [employer] Address [address] [place] [address] 7t [place] [address] Care Team Providers Care National Stormwater Leader Name Role Phone Nicky Wilson MD Primary Care Provider [phone] Encounter Details Date Type Department Care Team (Late st Contact Info) Description 07/08/2022 Abstract [facility] MEDICINE [address] [place] [address] ProviderSusanna MD Social History Tobacco Use Types [...] Description 08/01/2025 9:45 AM EST Office Visit [facility] CHC MED & PEDS [address] [place] [address] Nicky Wilson MD [address] [place] [address] documented as of this encounter Visit Diagnoses Not on filedocumented in this encounter Care Teams National Stormwater Leader Relationship Specialty Start Date End Date Nicky Wilson MD [address] [place] [address] PCP - General Family Medicine 12/29/18 documented as of this encounter
--- OUTSIDE RECORDS SUMMARY | 2025-05-31 14:18 | XMS_ITS | Encounter Summary ---
Author Organization [employer] Address [address] [place] [address] 7 [place] [address] Care Team Providers Care Java Development Team Lead Name Role Phone Nicky Wilson MD Primary Care Provider [phone] Reason for Visit * Reason Comments Med Refill Encounter Details Date Type Department Care Team (Late Contact Info) Description 11/28/2022 Refill [facility] CHC MED & PEDS [address] [place] [address] Nicky Wilson MD [address] [place] [address] Social History Tobacco Use Types Packs/Day Years [...] Department Care Team (Late Contact Info) Description 08/01/2025 9:45 AM EST Office Visit [facility] CHC MED & PEDS [address] [place] [address] Nicky Wilson MD [address] [place] [address] documented as of this encounter Visit Diagnoses Not on filedocumented in this encounter Care Teams Java Development Team Lead Relationship Specialty Start Date End Date Nicky Wilson MD [address] [place] [address] PCP - General Family Medicine 12/29/18 documented as of this encounter
--- OUTSIDE RECORDS SUMMARY | 2025-05-31 14:18 | XMS_ITS | Clinical Summary ---
Author Organization [employer] Address 75 [facility] 7t [place] [address] Care Team Providers Care Top Lifter Name Role Phone Nicky Wilson MD Primary Care Provider [phone] Allergies Active Allergy Reactions Criticality Noted Date [...] for wheezing. 75 mL 2 3 Active albuterol 108 (90 Base) MCG/ACT inhalerIndicatio ns:Mixed simple and mucopurulent chronic bronchitis (CMS/HCC) (HCC) INAHLE 2 PUFFS BY MOUTH EVERY 4-6 HOURS NEEDED FOR WHEEZING 8.5 g 5 4 Active Umeclidinium-Shannon anterol (Anoro Ellipta) 62.5-25 MCG/ACT aerosol powder INHALE ONE PUFF EVERY MORNING 60 each 3 4 Active atorvastatin (Lipitor) 40 MG tablet Take 1 tablet by mouth. 9 Active aspirin 81 MG EC tablet Take 1 tablet by mouth Once per day. 9 Active Umeclidinium-Shannon anterol (Anoro Ellipta) 62.5-25 MCG/ACT aerosol powder Inhale 1 puff Once per day. 60 each 5 Active atorvastatin (Lipitor) 40 MG tabletIndication s:Dyslipidemia TAKE 1 TABLET BY MOUTH EVERY NIGHT AT BEDTIME 90 tablet 1 5 Active atorvastatin (Lipitor) 40 MG tabletIndication s:Dyslipidemia Take 1 tablet (40 mg) by mouth at bedtime. 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) TAKE 1 TABLET(40 MG) BY MOUTH IN THE MORNING 90 tablet 1 5 Active Active Problems Problem Noted Date Diagnosed Date Osteopenia after menopause 11/28/2024 Acute hypoxemic respiratory failure (CMS/HCC) Chronic right-sided heart failure 07/06/2024 Chronic obstructive lung disease 12/29/2018 06/10/2023 Atrial fibrillation and flutter 12/29/2018 06/10/2023 Obstructive sleep apnea syndrome 12/29/2018 06/10/2023 Essential (primary) hypertension 12/02/2018 06/10/2023 Secondary polycythemia 12/02/2018 3 Encounters Date Type Department Care Team Description 04/30/2025 Telephone [facility] MED & PEDS [address] [place] [address] Nicky Wilson MD Med Refill 04/30/2025 Refill [facility] MED & PEDS [address] [place] [address] Nicky Wilson MD 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) 03/11/2025 Refill [facility] MED & PEDS [address] [place] [address] Nicky Wilson MD 03/08/2025 Orders Only [facility] External Provider, [facility] from Last 3 Months Immunizations Immunization Administration Dates Next Due Influenza High-dose Quadriva [...] 87 11/28/2024 11:15 AM EDT Temperature 36.2 C (97.2 F) 11/28/2024 11:15 AM EDT Respiratory Rate 20 11/28/2024 11:15 AM EDT [...] Description 08/01/2025 9:45 AM EST Office Visit [facility] CHC MED & PEDS [address] [place] [address] Nicky Wilson MD [address] [place] [address] Health Maintenance Due Date Last Done Comments CT Colonography 1950 Colonoscopy 1950 Depression Screening 1950 FIT 1950 SDOH Screening 1950 Sigmoidoscopy 1950 Alcohol/Substance Use Screening 1963 Hepatitis C Screening 1969 Zoster Vaccines (1 of 2) 2001 Pneumococcal Vaccine: 50+ Years (2 of 2 - PPSV23) 03/23/2019 01/26/2019 COVID-19 Vaccine ( season) 2025 06/05/2024, 07/19/2023, 06/18/2022, Additional history exists Influenza Vaccine (#1) 2025 , 06/10/2023, 05/26/2022, Additional history exists Diabetes: Hemoglobin A1C 11/20/2025 11/20/2024 FOBT 11/22/2025 11/22/2024 Tobacco Screening 11/28/2025 11/28/2024 Mammogram 05/25/2026 05/25/2024, 1012/2022, 05/20/2022, Additional history exists Colorectal Cancer Screening 11/23/2027 FIT DNA/Cologuard 11/23/2027 11/22/2024 Lipid Panel 11/20/2029 11/20/2024 DTaP/Tdap/Td Vaccines (2 - Td or Tdap) 11/18/2034 11/18/2024 RSV Patients and Patients Aged 60 years or older Completed 07/19/2023 HIB Vaccines Aged Out No [...] Procedure Name Priority Date/Time Associated Diagnosis Comments NM HEART PERFUSION SPECT STRESS AND REST Routine 03/08/2025 10:05 AM EDT LAB COLOGUARD COLON CANCER SCREEN Routine 11/22/2024 8:57 AM EDT Screening for colon cancer HEMOGLOBIN A1C Routine 11/20/2024 8:26 AM EDT Screening for colon cancer Essential (primary) hypertension Secondary polycythemia Obstructive sleep apnea syndrome LIPID PANEL, STANDARD Routine 11/20/2024 8:26 AM EDT Screening for colon cancer Essential (primary) hypertension Secondary polycythemia Obstructive sleep apnea syndrome BI MAMMOGRAM SCREENING TOMOSYNTHESIS BILATERAL Routine 05/25/2024 11:00 AM EDT from Last 3 Months or Most Recently Relevant to Health Maintenance Results * NM heart perfusion SPECT stress and rest (03/08/2025 10:05 AM EDT) Anatomical Region Laterality Modality Body Nuclear Medicine 03/08/2025 10:0 5 AM EDT Narrative 03/09/2025 2:01 PM EDT [place] [address] Nuclear Medicine Report Signed Patient: Krystal Max MR#: [id number] : 1950 Acct:[id number] Age/Sex: 75 / F ADM Date: 03/08/25 Loc: [facility] Attending Dr: Yusuf French MD Ordering Physician: Yusuf French MD Date of Service: 03/08/25 Procedure(s): NM sulema perf SPECT rest str Accession Number(s): [id number] cc: Nicky Wilson MD; Yusuf French MD Lexiscan Myocardial perfusion study Indication: Shortness of breath on exertion to evaluate for myocardial ischemia Technique: The patient was brought in for a Lexiscan perfusion study on 03/08/2025 and was injected 0.4 mg of Lexiscan intravenously. Within a minute of this injection 30 mCi of sestamibi was given intravenously. Images were obtained using the SPECT gamma camera interlaced with the gating device. Images were obtained in supine position. Resting perfusion study was performed on 03/09/2025. Patient was administered 30 mCi of sestamibi intravenously at rest. Images were then obtained in supine position. Images obtained without without CT attenuation. Total DLP 118 mGy-cm. Images were processed with the software and compared side to side in short axis, horizontal long axis and vertical long axis views. Findings: The stress perfusion study showed nonattenuated images show normal uptake of radiotracer in all segments of the LV myocardium. Attenuated corrected images show minimal thinning of the distal anterior wall of the LV myocardium. There is suggestion of left ventricular hypertrophy. The gated study shows normal LV systolic function with calculated LVEF of 54%. LV cavity is normal in size. The gated study shows normal systolic wall thickening and contraction of segments. Resting study shows no change in perfusion pattern compared to stress perfusion study. Gating at rest was not performed. The findings are consistent with normal myocardial perfusion. NM/NM sulema perf SPECT rest str Impression: 1. Myocardial perfusion imaging study shows normal myocardial perfusion 2. Gated LVEF is 54% 3. Transient ischemic dilatation not present [Nondiagnostic changes on EKG. Electronically signed by: Yusuf French MD 03/09/2025 01:58 PM EDT RP Dictated By: Yusuf French MD Signed By: <Electronically signed by Yusuf French MD in OV> 03/09/25 1358 DD/ 1005 TD/TT: 03/09/25 1210 [employer]: Procedure Note Donotuseinterpreter, Image - 03/09/[address] [address] Nuclear Medicine Report Signed Patient: Sridevi Max#: [id number] : 1950cct:[id number] Age/Sex: 75 / FADM Date: 03/08/25 Loc: [facility] Attending Dr: Yusuf French MD Ordering Physician: Yusuf French MD Date of Service: 03/08/25 Procedure(s): NM sulema perf SPECT rest str Accession Number(s): [id number] cc: Nicky Wilson MD; Yusuf French MD Lexiscan Myocardial perfusion study Indication: Shortness of breath on exertion to evaluate for myocardial ischemia Technique: The patient was brought in for a Lexiscan perfusion study on 03/08/2025 and was injected 0.4 mg of Lexiscan intravenously. Within a minute of this injection 30 mCi of sestamibi was given intravenously. Images were obtained using the SPECT gamma camera interlaced with the gating device. Images were obtained in supine position. Resting perfusion study was performed on 03/09/2025. Patient was administered 30 mCi of sestamibi intravenously at rest. Images were then obtained in supine position. Images obtained without without CT attenuation. Total DLP 118 mGy-cm. Images were processed with the software and compared side to side in short axis, horizontal long axis and vertical long axis views. Findings: The stress perfusion study showed nonattenuated images show normal uptake of radiotracer in all segments of the LV myocardium. Attenuated corrected images show minimal thinning of the distal anterior wall of the LV myocardium. There is suggestion of left ventricular hypertrophy. The gated study shows normal LV systolic function with calculated LVEF of 54%. LV cavity is normal in size. The gated study shows normal systolic wall thickening and contraction of segments. Resting study shows no change in perfusion pattern compared to stress perfusion study. Gating at rest was not performed. The findings are consistent with normal myocardial perfusion. NM/NM sulema perf SPECT rest str Impression: 1. Myocardial perfusion imaging study shows normal myocardial perfusion 2. Gated LVEF is 54% 3. Transient ischemic dilatation not present [Nondiagnostic changes on EKG. Electronically signed by: Yusuf French MD 03/09/2025 01:58 PM EDT Dictated By: Yusuf French MD Signed By: <Electronically signed by Yusuf French MD in OV> 03/09/25 1358 DD/ 1005 TD/TT: 03/09/25 1210 [employer] Dist[employer]: [facility] External Provider IMG NM PROCEDURES Edited Result - Final * (ABNORMAL) Cologuard?? colon cancer screening (11/22/2024 8:57 AM EDT) Cologuard Result Positive( A) Negative 11/28/2024 8:41 AM EDT [facility] (CLIA #:[id number]) Comment: POSITIVE TEST RESULT. A positive Cologuard result should be followed with a colonoscopy or visual examination of the colon. The normal value (reference range) for this assay is negative. TEST DESCRIPTION: Composite algorithmic analysis of stool DNA-biomarkers with hemoglobin immunoassay. Quantitative values of individual biomarkers are not [...] screened with both Cologuard and colonoscopy. (Serjio White al, N Engl J Med 2014;370(14):0618-7021.) Cologuard may produce a false negative or false positive result (no colorectal cancer or precancerous polyp present at colonoscopy follow up). A negative Cologuard test result does not guarantee the absence of CRC or advanced adenoma (pre-cancer). The current Cologuard screening interval is every 3 years. ([place] [employer] Society and U.S. Multi-Society Task Force). Cologuard performance data in a 10,000 patient pivotal study using colonoscopy as the reference method can be accessed at the following location: www.[employer]erved[employer].GetJob/results. Additional description of the Cologuard test process, warnings and precautions can be found at www.Access [employer].com. Stool specimen (specimen) 11/22/2024 8:57 AM EDT 11/23/2024 12:49 PM EDT Nicky Wilson MD LAB MOLECULAR DIAGNOSTICS ORD ERABLES Final Result Performing Organization Address City/[facility]/ZIP Co de Phone Number [facility] (CLIA #:[id number]) [address] [place] [address], * (ABNORMAL) Hemoglobin A1c (11/20/2024 8:26 AM EDT) Hemoglobin A1c 6.1(H) <6.0 % [facility] Comment:Hemoglobin A1C Refer ence Range Adults: 4.8 - 6.0 % Non diabetic: < 6.0 % Goal: < 7.0 %Additional Action Suggested: > 8.0 %Note: Hemoglobin A1c results are invalid for patients with abnormal amounts of HbF. Blood transfusions may impact the HbA1c concentration in the patient sample. Estimated Average Glucose 128 mg/dL [facility] Comment:eAG = Estimated ave rage glucose which is %A1C expressed asaverage glucose, using the formula of the O8F-BhjkyvpHtipdqg Glucose study (ADAG), Diabetes Care, Vol.31,#8,Mar. 2007 Blood Venous blood specimen / Unknown 11/20/2024 8:26 AM EDT 11/20/2024 1:56 PM EDT Nicky Wilson MD LAB BLOOD ORDERABLES Final Re sult Performing Organization Address City/[facility]/ZIP Co de Phone Number [facility] [address] [place] [phone] [phone] * (ABNORMAL) Lipid Panel, Standard (11/20/2024 8:26 AM EDT) Triglycerides 169(H) <150 mg/dL [facility] Comment:Slight Lipemia.Víctor able Triglyceride: less than 150 mg/dLBorderline High Triglyceride 150-199 mg/dLHigh Triglyceride: 200-499 mg/dLVery High Triglyceride: greater than or equal to 5OO mg/dL Cholesterol 133 <200 mg/dL [facility] Comment:Desirable Cholestero l: less than 200 mg/dLBorderline High Cholesterol: 200-239 mg/dLHigh Cholesterol: greater than 239 mg/dL LDL Cholesterol Calculated 51 <100 mg/dL [facility] Comment:Desirable LDL: less than 100 mg/dLNear Optimal/Above Optimal LDL: 110- 129 mg/dLBorderline High LDL: 130-159 mg/dLHigh LDL: 160-189 mg/dLVery High LDL: greater than or equal to 190 mg/dL HDL Cholesterol 49 >40 mg/dL [facility] Comment:Desirable HDL: great er than 40 mg/dL Note: This HDL assay may give artificially low results in patients with liver disease. Blood Venous blood specimen / Unknown 11/20/2024 8:26 AM EDT 11/20/2024 1:56 PM EDT us Nicky Wilson MD LAB BLOOD ORDERABLES Final Re sult Performing Organization Address City/State/[facility] Co de Phone Number [facility] [address] [place] [phone] * BI Mammogram Screening Tomosynthesis Bilateral (05/25/2024 11:00 AM EDT) Anatomical Region Laterality Modality Breast Bilateral Mammography 05/25/2024 11:0 0 AM EDT Narrative 06/02/2024 10:01 AM EDT [facility] [address] [place] [address] Mammography Report Signed Patient: Krystal Max MR#: [id number] : 1950 Acct:[id number] Age/Sex: 74 / F ADM Date: 05/25/24 Loc: [facility] Attending Dr: Nicky Wilson MD Ordering Physician: Nicky Wilson MD Results: 1Ne gative Date of Service: 05/25/24 Follow Up: 1 Year From Orig inal Mammogram Procedure(s): MM tomosynthesis screening BI Accession Number(s): [id number] cc: Nicky Wilson MD EXAMINATION: MM SCREENING [...] 06/02/24 0958 DD/ 1100 TD/TT: 05/25/24 1126 [employer]: Procedure Note Donotuseinterpreter, Image - 06/02/2024 [facility] [address] [place], [place] [address] Mammography Report Signed Patient: Sridevi Max#: [id number] : 1Acct:[id number] Age/Sex: 74 / FADM Date: 05/25/24 Loc: HO.MAMMO Attending Dr: Nicky Wilson MD Ordering Physician: Nicky Wilson MDResults: 1Ne gative Date of Service: 05/25/24Follow Up: 1 Year From Orig inal Mammogram Procedure(s): MM tomosynthesis screening BI Accession Number(s): [id number] cc: Nicky Wilson MD EXAMINATION: MM SCREENING [...] Cheryl Cheek DO 06/02/2024 09:58 AM EDT Dictated By: Cheryl Cheek DO Signed By: <Electronically signed by Cheryl Cheek DO in OV> 06/02/24 0958 DD/ 1100 TD/TT: 05/25/24 1126 [employer] Dist[employer]: Nicky Wilson MD IMG BI PROCEDURES Final Resul t from Last 3 Months or Most Recently Relevant to Health Maintenance Insurance [facility] MEDICARE ADVANTAGE HMO Care Teams Top Lifter Relationship Specialty Start Date End Date Nicky Wilson MD [address] [place] [address] PCP - General Family Medicine 12/29/18
--- OUTSIDE RECORDS SUMMARY | 2025-05-31 14:18 | XMS_ITS | Encounter Summary ---
Author Organization [employer] Address [address] [place] [address] 7t [place] [address] Care Team Providers Care Grass Cutter Name Role Phone Nicky Wilson MD Primary Care Provider [phone] Encounter Details Date Type Department Care Team (Late st Contact Info) Description 07/08/2022 Abstract [facility] MEDICINE [address] [place] [address] ProviderSusanna MD Social History Tobacco Use Types [...] Description 08/01/2025 9:45 AM EST Office Visit [facility] CHC MED & PEDS [address] [place] [address] iNcky Wilson MD [address] [place] [address] documented as of this encounter Visit Diagnoses Not on filedocumented in this encounter Care Teams Grass Cutter Relationship Specialty Start Date End Date Nicky Wilson MD [address] [place] [address] PCP - General Family Medicine 12/29/18 documented as of this encounter
--- OUTSIDE RECORDS SUMMARY | 2025-05-31 14:18 | XMS_ITS | Encounter Summary ---
Author Organization [employer] Address [address] [place] [address] 7 [place] [address] Care Team Providers Care Document Clerk Name Role Phone Nicky Wilson MD Primary Care Provider [phone] Reason for Visit * Reason Comments Med Refill Encounter Details Date Type Department Care Team ([facility] Contact Info) Description 05/22/2023 Refill [facility] MEDICINE [address] [place], [place] [phone] Nicky Wilson MD [address] [place] [address] Social History Tobacco Use Types Packs/Day Years [...] Upcoming Encounters Date Type Department Care Team ([facility] Contact Info) Description 08/01/2025 9:45 AM EST Office Visit [facility] CHC MED & PEDS [address] [place], [place] [phone] Nicky Wilson MD [address] [place] [address] documented as of this encounter Visit Diagnoses Not on filedocumented in this encounter Care Teams Document Clerk Relationship Specialty Start Date End Date Nicky Wilson MD [address] [place] [phone] PCP - General Family Medicine 12/29/18 documented as of this encounter
--- OUTSIDE RECORDS SUMMARY | 2025-05-31 14:18 | XMS_ITS | Encounter Summary ---
Author Organization [employer] Address [address] [place] [address] [address] [place] [address] Care Team Providers Care Mosaic Floor Layer Name Role Phone Nicky Wilson MD Primary Care Provider [phone] Reason for Visit * Reason Comments Med Refill Encounter Details Date Type Department Care Team (Late Contact Info) Description 12/27/2022 Refill [facility] CHC MED & PEDS [address] [place] [address] Bernice Montgomery MD [address] [place] [address] Social History Tobacco Use Types Packs/Day Years [...] Description 08/01/2025 9:45 AM EST Office Visit [facility] CHC MED & PEDS [address] [place] [address] Nicky Wilson MD [address] [place] [address] documented as of this encounter Visit Diagnoses Not on filedocumented in this encounter Care Teams Mosaic Floor Layer Relationship Specialty Start Date End Date Nicky Wilson MD [address] [place] [id number] PCP - General Family Medicine 12/29/18 documented as of this encounter
== END 2025-05-31 11:10 | disposition home or self-care (01) ==
LOC: HO.MAMMO 11:09
PROVIDERS: PCP Pediatrics; Visit Provider Pediatrics
DX: Z12.31 Encounter for screening mammogram for malignant neoplasm of breast (principal)
CPT/HCPCS: 77063; 77067

== ENCOUNTER → 2025-05-31 11:30 | Outpatient (BNV) | payer MEDICARE, SELFPAY | PROVIDERS: PCP Pediatrics; Visit Provider Radiology Body Imaging | DX: Z12.31 Encounter for screening mammogram for malignant neoplasm of breast (principal) | CPT/HCPCS: 77063; 77067 ==

== ENCOUNTER 2025-06-08 09:43 | Outpatient (AMB) | payer MEDICARE, SELFPAY ==
--- NOTE | 2025-06-08 10:04 | A.OFFVIS_ITS ---
Vital Signs 06/08/25 10:06 Height 5 ft 7 in Weight 189 lb 2 oz BMI 29.6 BP 140/64 H Blood Pressure Location Rt brachial Position Sitting Pulse 74 Pulse Source Pulse Oximeter Pulse Oximetry (%) 90 L Oxygen Delivery Method Room Air Intake Visit Reasons: colo screen pos cologuard Intake Note: Patient new consult for positive cologuard Patient cc: Pt denies any GI sx or concerns at this time. Pt reports having one colonoscopy many years ago but was very concerned about the prep process and has never had another since. Accompanied by: Self / Same As Patient Allergies No Known Allergies Allergy (Verified 12/14/24 10:07) Medication List - Last Reconciled 06/08/25 by Marlene España CNP albuterol sulfate 90 mcg/actuation inhalation apixaban (Eliquis) 5 mg PO BID atorvastatin 40 mg PO DAILY diltiazem HCl CD 120 mg PO DAILY furosemide 40 mg PO DAILY multivitamin 1 tab PO DAILY umeclidinium-vilanterol 62.5-25 mcg/actuation (Anoro Ellipta) 1 ea inhalation DAILY HPI HPI colo screen pos cologuard: Details: Patient is a 75-year-old female with PMH of COPD on 2L, SHANE on CPAP, AFib, heart failure. Referred by PCP for further evaluation of positive Cologuard. Positive Cologuard collected 11-22-2024. Reports no current GI symptoms except for intermittent minor blood on toilet tissue associated with hard stools, which resolves with dietary management and stool softeners. No persistent rectal bleeding. Bowel movements occur daily or every other day; occasional constipation with hard stools, generally manageable through diet and OTC medications. Prior episode of rectal bleeding in early adulthood led to colonoscopy in 20s for rectal bleeding, at which time small polyps and hemorrhoids were reportedly found; advised dietary modification at that time, with good effect. Weight loss since December is intentional secondary to portion control and dietary changes for borderline blood sugar. Significant comorbidities include chronic obstructive pulmonary disease (COPD), atrial fibrillation (AFib), history of hypertension, and obstructive sleep apnea on CPAP. Reports anxiety about sedation and prep, particularly due to COPD and home oxygen use. Not currently experiencing concerning or acute GI symptoms. Patient denies: fever/chills, n/v, appetite changes, pyrosis, regurgitation,dysphasia, unintentional wt loss, ab pain. Social hx: -ETOH use, Occasional, reported as 1?2 times/month, typically half a wine cooler or half a beer -denies recreational drug use -former smoker, cessation at age 63 - family hx as below -denies personal hx of CA -tolerated anesthesia in the past without difficulty. [facility] Medical History Right heart failure COPD (chronic obstructive pulmonary disease) Paroxysmal atrial fibrillation Surgical History Hx of hysterectomy Family History Father No problems noted. Mother Diabetes Social History Patient Tobacco Use Status: Former Tobacco user Review of Systems Const Reports as per HPI ENT Reports as per HPI Card Reports as per HPI Resp Reports as per HPI GI Reports as per HPI Reports as per HPI Physical Exam Vital Signs: Last Vital Signs Pulse 74 06/08/25 10:06 BP 140/64 H 06/08/25 10:06 Pulse Ox 90 L 06/08/25 10:06 Oxygen Delivery Method Room Air 06/08/25 10:06 BMI result Body Mass Index 29.0 Const General: healthy appearing, no acute distress and well developed Nutritional Appearance: average body habitus Orientation/consciousness: patient oriented x3 HEENT Head: Yes normal to inspection, Yes normocephalic and Yes atraumatic Face and sinus: Yes normal facial exam Eyes General: appearance normal, both eyes and all related structures Neck Neck: Yes normal visual inspection Resp Effort & Inspection: normal respiratory effort, able to speak in complete sentences, no tracheal deviation and symmetric chest movement Auscultation: clear to auscultation bilaterally Cardio Jugular venous distension: no JVD Rate: regular rate Rhythm: regular rhythm Heart sounds: S1 normal heart sound present, S2 normal heart sound present, no gallops and no murmurs Neuro General: patient oriented x3 Gait exam (Neuro): Normal gait present Psych Appearance: grossly normal Mental Status: mental status grossly normal Speech and movement: Normal speech and movement present Affect: Anxious affect present Thought process: Normal thought process present Thought content: Normal thought content present Insight: Good insight present (Psych) Judgement: Good judgement present (Psych) Assessment & Plan Assessment & Plan (1) Positive colorectal cancer screening using Cologuard test: Comment: Positive Cologuard collected 11-22-2024. Code(s): R19.5 - Other fecal abnormalities Category: Medical Plan: - National guidelines recommend colonoscopy for any positive Cologuard due to sensitivity for advanced adenomas and carcinoma. Increased urgency, as test was performed >6 months ago. Additional Testing: - Colonoscopy to be scheduled urgently (within the next month, preferred). - Pre-procedure medical clearance from financial recording clerk and boil off machine operator cloth due to COPD with home O2, AFib, and history of hypertension. Medication Management: - Bowel prep: Miralax split prep (Miralax + 4 Bisacodyl tabs + Gatorade); alternative PEG-based prep can be used if preferred. - Continue home meds; ensure coordination regarding anticoagulation/antiplatelet agents if planned sedation/intervention. Nurse to review per protocol Lifestyle Recommendations: - Maintain high fiber, low processed food diet to reduce constipation/bleeding risk. - Adequate hydration during prep. - Avoid red/purple/blue Gatorade with prep. Follow-Up: - Await pulmonary (Alexis Wilder) and cardiology (Dr. Alvarez) clearance, with pending visits in June. - Procedure to be scheduled once clearance obtained and patient decides to proceed. - Close follow-up post-colonoscopy to review findings and pathology if polyps found. Plan Patient expresses significant anxiety regarding procedure (colonoscopy and sedation), especially in setting of COPD and oxygen use. Provided education regarding procedure, sedation safety, and option to defer decision pending discussion with family. Order placed as urgent for scheduling efficiency; patient may call to confirm or delay scheduling as needed. Follow-up colonoscopy or sooner as needed Time: I spent a total of 45 minutes on the date of encounter which includes: Preparing to see the patient (reviewed previous documentation, test results and medical history) Performing a medically appropriate exam and/or evaluation Ordering medications, tests, and procedures Documenting clinical information in the health record Orders: Referrals GI Procedure Notification R19.5 - Other fecal abnormalities Medications: New polyethylene glycol 3350 (Miralax) per colonoscopy prep instructions 238 grams PO ONCE 238 grams 0RF bisacodyl Take per colonoscopy instructions 20 mg (4 x 5 mg) PO ONCE 4 tabs 0RF Coding Level of Care Code New Pt New Pt Level 4 (20608) Patient Type New Diagnoses Positive colorectal cancer screening using Cologuard test R19.5
[2025-06-08 10:06] VITALS: BP 140/64; PULSE 74; O2SAT 90; BMI 29.6
--- OUTSIDE RECORDS SUMMARY | 2025-06-08 10:49 | XMS_ITS | Encounter Summary ---
Author Organization [employer] Address [address] [place] [address] 7 [place] [address] Care Team Providers Care Plug Maker Name Role Phone Nciky Wilson MD Primary Care Provider [phone] Reason for Visit * Reason Comments Med Refill Encounter Details Date Type Department Care Team ([facility] [address] Contact Info) Description 05/22/2023 Refill [facility] MEDICINE [address] [place], [place] [phone] Nicky Wilson MD [address] [place] [address] Social History Tobacco Use Types Packs/Day Years [...] Upcoming Encounters Date Type Department Care Team ([facility] [address] Contact Info) Description 08/01/2025 9:45 AM EST Office Visit [facility] CHC MED & PEDS [address] [place], [place] [phone] Nicky Wilson MD [address] [place] [address] documented as of this encounter Visit Diagnoses Not on filedocumented in this encounter Care Teams Plug Maker Relationship Specialty Start Date End Date Nciky Wilson MD [address] [place] [id number] PCP - General Family Medicine 12/29/18 documented as of this encounter
--- OUTSIDE RECORDS SUMMARY | 2025-06-08 10:49 | XMS_ITS | Encounter Summary ---
Author Organization [employer] Address [address] [place] [address] [address] [place] [address] Care Team Providers Care Licensed Reactor Operator Name Role Phone Nicky Wilson MD Primary Care Provider [phone] Reason for Visit * Reason Comments Med Refill Encounter Details Date Type Department Care Team (Late Contact Info) Description 12/27/2022 Refill [facility] CHC MED & PEDS [address] [place] [address] Bernice Montgomery MD [address] [place] [address] Social History Tobacco Use Types Packs/Day Years [...] Description 08/01/2025 9:45 AM EST Office Visit [facility] CHC MED & PEDS [address] [place] [address] Nicky Wilson MD [address] [place] [address] documented as of this encounter Visit Diagnoses Not on filedocumented in this encounter Care Teams Licensed Reactor Operator Relationship Specialty Start Date End Date Nicky Wilson MD [address] [place] [address] PCP - General Family Medicine 12/29/18 documented as of this encounter
--- OUTSIDE RECORDS SUMMARY | 2025-06-08 10:49 | XMS_ITS | Encounter Summary ---
Author Organization [employer] Address [address] [place] [address] 7 [place] [address] Care Team Providers Care Art Museum Docent Name Role Phone Nicky Wilson MD Primary Care Provider [phone] Reason for Visit * Reason Comments Med Refill Encounter Details Date Type Department Care Team (Late Contact Info) Description 11/28/2022 Refill [facility] CHC MED & PEDS [address] [place] [address] Nicky Wilson MD [address] [place] [address] Social History Tobacco Use Types Packs/Day Years [...] Description 08/01/2025 9:45 AM EST Office Visit [facility] CHC MED & PEDS [address] [place] [address] Nicky Wilson MD [address] [place] [address] documented as of this encounter Visit Diagnoses Not on filedocumented in this encounter Care Teams Art Museum Docent Relationship Specialty Start Date End Date Nicky Wilson MD [address] [place] [address] PCP - General Family Medicine 12/29/18 documented as of this encounter
--- OUTSIDE RECORDS SUMMARY | 2025-06-08 10:50 | XMS_ITS | Encounter Summary ---
Author Organization [employer] Address [address] [place] [address] [address]t [place] [address] Care Team Providers Care Audio Engineer Name Role Phone Nicky Wilson MD Primary Care Provider [phone] Encounter Details Date Type Department Care Team (Late st Contact Info) Description 07/08/2022 Abstract [facility] MEDICINE [address] [place] [address] ProviderSusanna MD Social History Tobacco Use Types [...] Description 08/01/2025 9:45 AM EST Office Visit [facility] CHC MED & PEDS [address] [place] [address] Nicky Wilson MD [address] [place] [address] documented as of this encounter Visit Diagnoses Not on filedocumented in this encounter Care Teams Audio Engineer Relationship Specialty Start Date End Date Nicky Wilson MD [address] [place] [address] PCP - General Family Medicine 12/29/18 documented as of this encounter
--- OUTSIDE RECORDS SUMMARY | 2025-06-08 10:50 | XMS_ITS | Encounter Summary ---
Author Organization [employer] Address [address] [facility] 7[address] [place] [address] Care Team Providers Care Shank Maker Name Role Phone Nicky Wilson MD Primary Care Provider [phone] Reason for Visit * Reason Onset Date Comments Referral 11/17/2024 Encounter Details Date Type Department Care Team ([facility] st Contact Info) Description 11/17/2024 Telephone [facility] MEDICINE [address] [place] [address] Nicky Wilson MD [address] [place] [id number] Referral Social History Tobacco Use Types Packs/Day [...] referral be sent to Dr. Reyes at [facility] instead of the as sent to [place]. Routing to provider for new referral. * Telephone Encounter - Kp Del Vallenandez - 11/17/2024 10:42 AM EDT Tc from pt requesting a referral for Pulminary to be sent to Dr. Reyes at [facility]. Contact pt at [phone] documented in this encounter Plan of Treatment Upcoming Encounters Date Type Department Care Team (Late st Contact Info) Description 08/01/2025 9:45 AM EST Office Visit [facility] MED & PEDS [address] [place] [address] Nicky Wilson MD [address] [place] [address] documented as of this encounter Visit Diagnoses Not on filedocumented in this encounter Care Teams Shank Maker Relationship Specialty Start Date End Date Nicky Wilson MD [address] [place] [address] PCP - General Family Medicine 12/29/18 documented as of this encounter
--- OUTSIDE RECORDS SUMMARY | 2025-06-08 10:50 | XMS_ITS | Clinical Summary ---
Author Organization [employer] Address [address] [facility] 7t [place] [address] Care Team Providers Care Hot Shot Name Role Phone Nicky Wilson MD Primary Care Provider [phone] Allergies Active Allergy Reactions Criticality Noted Date [...] Encounters Date Type Department Care Team Description 06/04/2025 Results Follow-Up [facility] MED & PEDS [address] [place] [address] Nicky Wilson MD BI Mammogram Screening Tomosynthesis Bilateral 05/31/2025 Orders Only [facility] MED & PEDS [address] [place] [address] Nicky Wilson MD 04/30/2025 Telephone [facility] MED & PEDS [address] [place] [address] Nicky Wilson MD Med Refill 04/30/2025 Refill 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 MED [facility] PEDS [address] [place] [address] Nicky Wilson MD 03/08/2025 Orders Only [facility] External Provider, [facility] from Last 3 Months Immunizations Immunization Administration [...] Upcoming Encounters Date Type Department Care Team ([facility] st Contact Info) Description 08/01/2025 9:45 AM EST Office Visit [facility] MED & PEDS [address] [place] [address] Nicky Wilson MD [address] [place] [address] Health Maintenance Due Date Last Done Comments [...] 11/22/2025 11/22/2024 Tobacco Screening 11/28/2025 11/28/2024 Mammogram 05/31/2027 05/31/2025, 05/16, 05/20/2023, Additional history exists Colorectal Cancer Screening 11/23/2027 [...] Comments BI MAMMOGRAM SCREENING TOMOSYNTHESIS BILATERAL Routine 05/31/2025 11:20 AM EDT NM HEART PERFUSION SPECT STRESS AND REST [...] hypertension Secondary polycythemia Obstructive sleep apnea syndrome from Last 3 Months or Most Recently Relevant to Health Maintenance Results * BI Mammogram Screening Tomosynthesis Bilateral (05/31/2025 11:20 AM EDT) Anatomical Region Laterality Modality Breast Bilateral Mammography 05/31/2025 11:2 0 AM EDT Narrative 06/03/2025 11:35 AM EDT [facility] [address] [place] [address] Mammography Report Signed Patient: Krystal Max MR#: [id number] : 1950 Acct:[id number] Age/Sex: 75 / F ADM Date: 05/31/25 Loc: HO.MAMMO Attending Dr: Nicky Wilson MD Ordering Physician: Nicky Wilson MD Results: 1Ne gative Date of Service: 05/31/25 Follow Up: 1 Year From Orig inal Mammogram Procedure(s): MM tomosynthesis screening BI Accession Number(s): [id number] cc: Nicky Wilson MD Reason For Exam: Z12.31 EXAMINATION: MM SCREENING DIGITAL BREAST TOMOSYNTHESIS, BILATERAL CLINICAL INFORMATION: Screening. Asymptomatic. COMPARISON: Comparison made to multiple prior, most recent May 25, 2024, and most remote April 16, 2021. TECHNIQUE: Digital breast tomosynthesis is performed in mediolateral oblique and craniocaudal views along with computer-aided detection (CAD). Synthesized 2D images are generated from the tomosynthesis. FINDINGS: BREAST COMPOSITION: There are scattered areas of fibroglandular density. BILATERAL BREASTS: No significant masses, suspicious calcifications or other abnormalities are seen in either breast. MM/MM tomosynthesis screening BI IMPRESSION: BILATERAL BREASTS: Negative, no mammographic evidence of malignancy. Normal interval follow-up is recommended in 12 months. ASSESSMENT: BI-RADS: Category 1: Negative RECOMMENDATION: Routine annual mammography screening. FOLLOW-UP: 1 year F/U This examination should not preclude the clinical evaluation of a suspicious palpable abnormality. This patient's information was entered into a reminder system with a target due date for their next mammogram. Electronically signed by: Berenice Vila MD 06/03/2025 11:32 AM EDT Dictated By: Berenice Vila MD Signed By: <Electronically signed by Berenice Vila MD in OV> 06/03/25 1132 DD/ 1120 TD/TT: 05/31/25 1140 Photographic Process Attendant: Procedure Note Donotuseinterpreter, Image - 06/03/2025 [facility] [address] [place] [address] Mammography Report Signed Patient: Sridevi Max#: [id number] : 1950cct:[id number] Age/Sex: 75 / FADM Date: 05/31/25 Loc: HO.MAMMO Attending Dr: Nicky Wislon MD Ordering Physician: Nicky Wilson MDResults: 1Ne gative Date of Service: 05/31/25Follow Up: 1 Year From [facility] ina Mammogram Procedure(s): MM tomosynthesis screening BI Accession Number(s): [id number] cc: Nicky Wilson MD Reason For Exam: Z12.31 EXAMINATION: MM SCREENING DIGITAL BREAST TOMOSYNTHESIS, BILATERAL CLINICAL INFORMATION: Screening. Asymptomatic. COMPARISON: Comparison made to multiple prior, most recent May 25, 2024, and most remote April 16, 2021. TECHNIQUE: Digital breast tomosynthesis is performed in mediolateral oblique and craniocaudal views along with computer-aided detection (CAD). Synthesized 2D images are generated from the tomosynthesis. FINDINGS: BREAST COMPOSITION: There are scattered areas of fibroglandular density. BILATERAL BREASTS: No significant masses, suspicious calcifications or other abnormalities are seen in either breast. MM/MM tomosynthesis screening BI IMPRESSION: BILATERAL BREASTS: Negative, no mammographic evidence of malignancy. Normal interval follow-up is recommended in 12 months. ASSESSMENT: BI-RADS: Category 1: Negative RECOMMENDATION: Routine annual mammography screening. FOLLOW-UP: 1 year F/U This examination should not preclude the clinical evaluation of a suspicious palpable abnormality. This patient's information was entered into a reminder system with a target due date for their next mammogram. Electronically signed by: Berenice Vila MD 06/03/2025 11:32 AM EDT Dictated By: Berenice Vila MD Signed By: <Electronically signed by Berenice Vila MD in OV> 06/03/25 1132 DD/ 1120 TD/TT: 05/31/25 1140 Photographic Process Attendant: us Nicky Wilson MD IMG BI PROCEDURES Edited Resu lt - Final * NM heart perfusion SPECT stress and rest (03/08/2025 10:05 AM EDT) Anatomical Region Laterality Modality Body Nuclear Medicine 03/08/2025 10:0 5 AM EDT Narrative 03/09/2025 2:01 PM EDT [address] [place] [address] Nuclear Medicine Report Signed Patient: Krystal Max MR#: [id number] : 1950 Acct:[id number] Age/Sex: 75 / F ADM Date: 03/08/25 Loc: [facility] Attending Dr: Yusuf French MD Ordering Physician: Yusuf French MD Date of Service: 03/08/25 Procedure(s): NM sulema perf SPECT rest str Accession Number(s): [id number] cc: Nicky Wilson MD; Yusuf French MD [...] 03/09/25 1358 DD/ 1005 TD/TT: 03/09/25 1210 Photographic Process Attendant: Procedure Note Donotuseinterpreter, Image - 03/09/2025 [place] [address] Nuclear Medicine Report Signed Patient: Sridevi Max#: [id number] : 1950cct:[id number] Age/Sex: 75 / FADM Date: 03/08/25 Loc: [facility] Attending Dr: Yusuf French MD Ordering Physician: Yusuf French MD Date of Service: 03/08/25 Procedure(s): NM sulema perf SPECT rest str Accession Number(s): [id number] cc: Nicky Wilson MD; Yusuf French MD [...] 03/09/25 1358 DD/ 1005 TD/TT: 03/09/25 1210 Photographic Process Attendant: [facility] External Provider IMG NM PROCEDURES Edited Result - Final * (ABNORMAL) Cologuard?? colon cancer screening (11/22/2024 8:57 AM EDT) Cologuard Result Positive( A) Negative 11/28/2024 8:41 AM EDT [facility] (CLIA #:[id number]) Comment: POSITIVE TEST RESULT. A positive Cologuard [...] (Serjio White al, N Engl J Med 2014;370(14):6250-4716.) Cologuard may produce a false negative or false positive result (no colorectal cancer or precancerous polyp present at colonoscopy follow up). A negative Cologuard test result does not guarantee the absence of CRC or advanced adenoma (pre-cancer). The current Cologuard screening interval is every 3 years. ([place] [employer] Society and U.S. Multi-Society Task Force). Cologuard performance data in a 10,000 patient pivotal study using colonoscopy as the reference method can be accessed at the following location: www.[employer]/results. Additional description of the Cologuard test process, warnings and precautions can be found at www.imgfaverd.[employer]. Stool specimen (specimen) 11/22/2024 8:57 AM EDT 11/23/2024 12:49 PM EDT Nicky Wilson MD LAB MOLECULAR DIAGNOSTICS ORD ERABLES Final Result [facility] (CLIA #:[id number]) [address] [place] [address], * (ABNORMAL) Hemoglobin A1c (11/20/2024 8:26 AM EDT) Hemoglobin A1c 6.1(H) <6.0 % [facility] Comment:Hemoglobin A1C Refer ence Range Adults: 4.8 - 6.0 % Non diabetic: < 6.0 % Goal: < 7.0 %Additional Action Suggested: > 8.0 %Note: Hemoglobin A1c results are invalid for patients with abnormal amounts of HbF. Blood transfusions may impact the HbA1c concentration in the patient sample. Estimated Average Glucose 128 mg/dL [facility] Comment:eAG = Estimated ave rage glucose which is %A1C expressed asaverage glucose, using the formula of the K3G-QrpwzrdGcuwdfr Glucose study (ADAG), Diabetes Care, Vol.31,#8,Mar. 2007 Blood Venous blood specimen / Unknown 11/20/2024 8:26 AM EDT 11/20/2024 1:56 PM EDT Nicky Wilson MD LAB BLOOD ORDERABLES Final Re sult Performing Organization Address [facility] Co de Phone Number [facility] [address] [place] [address] [phone] * (ABNORMAL) Lipid Panel, Standard (11/20/2024 8:26 AM EDT) Triglycerides 169(H) <150 mg/dL [facility] Comment:Slight Lipemia.Víctor able Triglyceride: less than 150 mg/dLBorderline High Triglyceride 150-199 mg/dLHigh Triglyceride: 200-499 mg/dLVery High Triglyceride: greater than or equal to 5OO mg/dL Cholesterol 133 <200 mg/dL [facility] Comment:Desirable Cholestero l: less than 200 mg/dLBorderline High Cholesterol: 200-239 mg/dLHigh Cholesterol: greater than 239 mg/dL LDL Cholesterol Calculated 51 <100 mg/dL [facility] Comment:Desirable LDL: less than 100 mg/dLNear Optimal/Above Optimal LDL: 110- 129 mg/dLBorderline High LDL: 130-159 mg/dLHigh LDL: 160-189 mg/dLVery High LDL: greater than or equal to 190 mg/dL HDL Cholesterol 49 >40 mg/dL [facility] Comment:Desirable HDL: great er than 40 mg/dL Note: This HDL assay may give artificially low results in patients with liver disease. Blood Venous blood specimen / Unknown 11/20/2024 8:26 AM EDT 11/20/2024 1:56 PM EDT Nicky Wilson MD LAB BLOOD ORDERABLES Final Re sult Performing Organization Address [facility]/ZIP Co de Phone Number [facility] [address] [place] [address] [phone] from Last 3 Months or Most Recently Relevant to Health Maintenance Insurance [employer] MEDICARE ADVANTAGE HMO Care Teams Hot Shot Relationship Specialty Start Date End Date Nicky Wilson MD [address] [place] [address] PCP - General Family Medicine 12/29/18
--- OUTSIDE RECORDS SUMMARY | 2025-06-08 10:50 | XMS_ITS | Encounter Summary ---
Author Organization [employer] Address [address] [place] [address] 7 [place] [address] Care Team Providers Care Tennis Director Name Role Phone Nicky Wilson MD Primary Care Provider [phone] Encounter Details Date Type Department Care Team ([facility] Contact Info) Description 05/31/2025 Orders Only [facility] MED & PEDS [address] [place] [address] Nicky Wilson MD [address] [place] [address] Social History Tobacco Use Types Packs/Day Years [...] Description 08/01/2025 9:45 AM EST Office Visit [facility] [address] [place] [address] Nicky Wilson MD [address] [place] [address] documented as of this encounter Procedures Procedure Name Priority Date/Time Associated Diagnosis Comments BI MAMMOGRAM SCREENING TOMOSYNTHESIS BILATERAL Routine 05/31/2025 11:20 AM EDT documented in this encounter Results * BI Mammogram Screening Tomosynthesis Bilateral (05/31/2025 11:20 AM EDT) Anatomical Region Laterality Modality Breast Bilateral Mammography 05/31/2025 11:2 0 AM EDT Narrative 06/03/2025 11:35 AM EDT [facility]'s [address] [place] [address] Mammography Report Signed Patient: Krystal Max MR#: [id number] : 1950 Acct:[id number] Age/Sex: 75 / F ADM Date: 05/31/25 Loc: HO.MAMMO Attending Dr: Nicky Wilson MD Ordering Physician: Nicky Wilson MD Results: 1Ne gative Date of Service: 05/31/25 Follow Up: 1 Year From Orig inal Mammogram Procedure(s): MM tomosynthesis screening BI Accession Number(s): [id number] cc: Nicky Wilson MD Reason For Exam: [...] 06/03/25 1132 DD/ 1120 TD/TT: 05/31/25 1140 Bond Analyst: Procedure Note Donotuseinterpreter, Image - 06/03/2025 [facility] [address] [place] [address] Mammography Report Signed Patient: Sridevi Max#: [id number] : 1950cct:[id number] Age/Sex: 75 / FADM Date: 05/31/25 Loc: HO.MAMMO Attending Dr: Nicky Wilson MD Ordering Physician: Nicky Wilson MDResults: 1Ne gative Date of Service: 05/31/25Follow Up: 1 Year From [facility] Mammogram Procedure(s): MM tomosynthesis screening BI Accession Number(s): [id number] cc: Nicky Wilson MD Reason For Exam: [...] 06/03/25 1132 DD/ 1120 TD/TT: 05/31/25 1140 Bond Analyst: us Nicky Wilson MD IMG BI PROCEDURES Edited Resu lt - Final documented in this encounter Visit Diagnoses Not on filedocumented in this encounter Care Teams Tennis Director Relationship Specialty Start Date End Date Nicky Wilson MD [address] [place] [address] PCP - General Family Medicine 12/29/18 documented as of this encounter
--- OUTSIDE RECORDS SUMMARY | 2025-06-08 10:50 | XMS_ITS | Data Portability ---
Author Organization [facility] [employer] [facility], Main Office Address [address] [facility] [place] [address] Care Team Providers Care Spot Remover Name Role Phone MALI LEOS 1ST FLOOR OTHER [phone] Assessment Encounter Date Assessment Date Assessment LastModified [...] By Organization Details Last Modified Time 12/19/2018 [id number] d/c home with O2 , meds, nebs and services. f/u with pcp in 1-2 weeks f/u with cardiology and pulm as scheduled. [email or web address] Not available 12/19/2018 09:39:26 Reason for Referral None Reported. Problems Name Problem SNOMED Code Status Onset Date Resolution Date Notes Provider Name and Address Organization Details Recorded Time Congestive heart failure 74053894 Active 2018 JTDARCI JACKSON [address] [facility], [address], [place], [address], [facility] [employer] 9 13:26:01 Obstructive sleep apnea syndrome 50839932 Active 2018 [facility] [address], [address], [place], [address], [facility] 9 13:26:05 Atrial flutter 7602824 Active [address], [address], [place], [address], [facility] 9 13:26:14 Fracture of the lateral humeral epicondyle 135305800 Active [address], [address], [place], [address], [facility] 9 13:26:25 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 [address], [address], [place], [address], [facility] 9 13:26:59 Acute hypoxemic respiratory failure 715694133 Active [address], [facility] [address], [place], [address], [facility] 9 13:27:13 Arthritis of joint of right shoulder region 3274929553777 101 Active [address], [address], [place], [address], [facility] 9 13:27:31 Hyperlipide kale 08622108 Active [address], [address], [place], [address], [facility] 9 13:39:56 Chronic obstructive pulmonary disease 88222667 Active 2018 Felipa Win MD [address], [address], [place], [address], [facility] 9 13:03:17 Problem Notes None recorded. Medical [...] % 2 L/min 18 /min 130/73 mm[Hg] [address], [address], [place], [address], [facility] 9 14:02:33 Date Recorded Body height Body mass index (BMI) Body weight Heart rate Respiratory rate Body temperature Oxygen saturation Oxygen saturation in Arterial blood by Pulse oximetry Inhaled oxygen flow rate Systolic And Diastolic Provider Name and Address Organization Details Last Updated DateTime 9 170.18 cm 28.8 kg/m2 80587 g 92 /min 18 /min 97.8 [degF] 93 % 93 % 2 L/min 154/80 mm[Hg] Felipa Win MD [address] [facility] [address], [place], [address], [facility] 9 13:51:37 Date Recorded Body height Body mass index (BMI) Body weight Heart rate Respiratory rate Body temperature Oxygen saturation Oxygen saturation in Arterial blood by Pulse oximetry Inhaled oxygen flow rate Systolic And Diastolic Provider Name and Address Organization Details Last Updated DateTime 9 170.18 cm 28.7 kg/m2 90628.8 4 g 88 /min 18 /min 97.5 [degF] 91 % 91 % 1.5 L/min 155/85 mm[Hg] Felipa Win MD [address] [facility] [address], [place], [address], [facility] 9 12:48:37 Date Recorded Body height Heart rate Systolic And Diastolic Provider Name and Address Organization Details Last Updated DateTime 12/19/2018 170.18 cm 92 /min 135/85 mm[Hg] Cassandra Delgadillo [facility] 12/19/2018 09:34:01 Social History Question Answer Notes LastModified by Organizat ion Details LastModified Time Tobacco Smoking Status Former Smoker Not Available [employer] 06/11/2020 03:13:22 Do You Have An Advance Directive? Yes DNI/DNR/no Art Hydration, No Dialysis, Ok For Hospitaliza tion, And Art. Hydration. [id number] Information not available 06/11/2020 How Much Tobacco Do You Chew? None [id number] Information not available 06/11/2020 Do You Have A Medical Power Of Inspector Precision? No [id number] Information not available 06/11/2020 What Was The Date Of Your Most Recent Tobacco Screening? 12/15/2018 [id number] Information not available 06/11/2020 Has Tobacco Cessation Counseling Been Provided? No Quit 5 Yrs Ago [id number] Information not available 06/11/2020 How Many Years Have You Smoked Tobacco? 35 Smoked 1 Ppd For 35 Yrs. [id number] Information not available 06/11/2020 Sex: Unknown Functional Status Question Answer Note LastModified by Organizat ion Details LastModified Time What is your level of alcohol consumption? Occasional [id number] Information not available 06/11/2020 Mental Status None [...] Diagnosis SNOMED-CT Code Diagnosis ICD10 Code Diagnosis IMO Codes Diagnosis Note [id number] JT JACKSON MALI LEOS [address] [place] [address] 12/03/2018 13:24:20 12/09/2018 11:06:03 Congestive heart failure 29357497 I50.41 See HPI, new dxlikely sys and llamas. dysfunctio nLasix 40 mg BIDhome 02 with goal of 88%-92%fol low up with cards outpt as neededmoni tor fluid volume and resp statusdail y weights , Add YOLANDA stockings daily on AM off qhs Obstructiv e sleep apnea syndrome 66731699 G47.33 Has sleep study consistent with SHANE [...] cannot wear the face mask. Atrial flutter 0421566 I 48.3 Cardizem 120 mg dailyeliqu is 5 mg BIDASA 81 mg dailymonit or rate Fracture o f the lateral humeral epicondyle 059530052 S42.434A Fell on ice two years ago, chronic pain to areaF/U with ortho to determine surgical future Hyperlipidemia 81401786 E78.2 Atorvastat in 40 mg dailymonit or lipids every 6 months Acute hypo xemic respiratory failure 650973818 J96.01 Duonebs q 4 hours PRNmonitor resp status [id number] Felipa Win MD [address] [place] [address] 12/08/2018 13:44:37 12/09/2018 12:29:08 Congestive heart failure 39007390 I50.41 Much improved with diuresis of ~30#. Continue Lasix 40 mg BID. Monitor daily wts, edema and resp. status.Con tinue TEDs stockings. F/U with cardio as outpt. Obstructiv e sleep apnea syndrome 08798332 G47.33 New dx of SHANE inpt. Now on BiPAP parameters written as 29/04 with at least 3 liters 02 QHS, but will titrate O2 flow to sats 90-92% Atrial flutter 9668366 I 48.3 Now in reg. rhythm. Continue diltiazem 120 mg qd, eliquis 5 mg BID and ASA 81 mg qd.Monitor rate Fracture o f the lateral humeral epicondyle 245882647 S42.434A Fell on ice two years ago, chronic pain to areaF/U with ortho to determine tx. Pt. would rather not have surgery. Hyperlipidemia 57456615 E78.2 Continue atorvastat in 40 mg qd.Monitor lipids as outpt. Acute hypo xemic respiratory failure 411411918 J96.22 J96.21 Likely from COPD. Continues with [...] resp status. Needs pulmonary f/u as outpt. [id number] Felipa Win MD [facility] [address]AF[address] [place] [address] 12/15/2018 12:32:46 12/21/2018 08:45:59 Chronic obstructive pulmonary disease 80770738 J43.1 Untxed for yrs. Pt. has clearly [...] this point. Acute hypo xemic respiratory failure 423848985 J96.22 J96.21 Likely from COPD as above. Continues with need for supplement al O2. Should keep sats between 90-92%, but NO HIGHER THAN 93% due to pt's hx of retaining CO2. Monitor resp status. Needs pulmonary f/u as outpt. Congestive heart failure 45065218 I50.41 Much improved with diuresis of ~30#. Continue Lasix 40 mg BID. Monitor daily wts, edema and resp. status.Con tinue TEDs stockings. F/U with cardio as outpt. Obstructiv e sleep apnea syndrome 27121769 G47.33 New dx of SHANE inpt. Now on BiPAP parameters written as 29/04 with at least 3 liters 02 QHS, but will titrate O2 flow to sats 90-92% [address] GREG[place] [address] [facility] [place] [address] 12/19/2018 07:58:06 12/21/2018 09:44:20 Chronic obstructive pulmonary disease 51076793 J43.1 -untreated for for yrs. -Artem d/c home with O2 to maintain improved cardio/res p. health. Pt. understand s that with pulmonary rehab she may be able to taper her use to with activity only. -Continue duonebs q hrs prn and albuterol nebs q 4 hrs prn. -She appears back to her baseline at this point. Acute hypo xemic respiratory failure 611854411 J96.22 J96.21 d/t COPD as above. Continues with need for supplement al O2. Should keep sats between 90-92%, but NO HIGHER THAN 93% due to pt's hx of retaining CO2. Monitor resp status. Needs pulmonary f/u as outpt. Congestive heart failure 61552847 I50.41 Much improved with diuresis of ~30#. Continue Lasix 40 mg BID. Monitor daily wts, edema and resp. status.Con tinue TEDs stockings. F/U with cardio as outpt. Obstructiv e sleep apnea syndrome 31751220 G47.33 New dx of SHANE inpt. Now [...] [employer] Member ID Guarantor Name 12/21/2018 1 [place] [employer] (MEDICARE REPLACEMENT/A DVANTAGE - HMO) [id number] Krystal Max [id number] Krystal Max Notes Date Note Type Note Provider Name [...] PCP in many years. JT JACKSON [address], [address], [place], [address], [facility] 12/09/2018 09:41:08 12/08/2018 text/html This is a [...] the 60s and she was sent to [facility] by ambulance. Eval showed hypercarbia in addition [...] of SVT/A flutter. Felipa Win MD [address] [facility], [address], [place], [address], [facility] 12/08/2018 15:08:26 12/15/2018 text/html i am asked [...] episode of SVT/A flutter. Felipa Win MD [address] [place] [address], [address], [place], [address], [facility] 12/15/2018 13:10:11 12/19/2018 text/html i am asked [...] fx, episode of SVT/A flutter. Cassandra carbajal, [facility] 12/19/2018 09:39:37 OBGyn Episode No OBEpisode recorded.
--- OUTSIDE RECORDS SUMMARY | 2025-06-08 10:50 | XMS_ITS | Clinical Summary ---
Author Organization 175 [facility] Address 175 [place] [address] Phone Care Team Providers Care Engraver Hand Hard Metals Name Role Phone Nicky Wilson MD Primary Care Provider [phone] Allergies Active Allergy Reactions Criticality Noted Date [...] 04/27/2025 10:00 AM EDT Ancillary Procedure Pulmonology [facility] [address] [phone] Chronic obstructive pulmonary disease, unspecified COPD type [...] 9:45 AM EST Office Visit Pulmonology - [place] [address] [phone] Milagros Reyes MD [address] [address] Health Maintenance Due Date Last Done Comments [...] pulmonary disease, unspecified COPD type (CMS/[facility] V24, CMS/[facility] V28) from Last 3 Months Results * [...] Months Insurance [employer] MEDICARE Care Teams Engraver Hand Hard Metals Relationship Specialty Start Date End Date Nicky Wilson MD [address] [place] [phone] PCP - General 03/21/19
--- OUTSIDE RECORDS SUMMARY | 2025-06-08 10:50 | XMS_ITS | Encounter Summary ---
Author Organization [employer] Address [address] [place] [address] 7t [place] [address] Care Team Providers Care Project Account Manager Name Role Phone Nicky Wilson MD Primary Care Provider [phone] Encounter Details Date Type Department Care Team (Late st Contact Info) Description 07/08/2022 Abstract [facility] [address] [place] [address] ProviderSusanna MD Social History Tobacco Use Types [...] Description 08/01/2025 9:45 AM EST Office Visit [facility] MED & PEDS [address] [place] [address] Nicky Wilson MD [address] [place] [address] documented as of this encounter Visit Diagnoses Not on filedocumented in this encounter Care Teams Project Account Manager Relationship Specialty Start Date End Date Nicky Wilson MD [address] [place] [address] PCP - General Family Medicine 12/29/18 documented as of this encounter
--- OUTSIDE RECORDS SUMMARY | 2025-06-08 10:50 | XMS_ITS | Encounter Summary ---
Author Organization [employer] Address [address] [place] [address] 7t [place] [address] Care Team Providers Care Tile Mason Name Role Phone Nicky Wilson MD Primary Care Provider [phone] Encounter Details Date Type Department Care Team (Latest Contact Info) Description 06/04/2025 Results Follow-Up [facility] MED & PEDS [address] [place] [address] Nicky Wilson MD [address] [place] [address] BI Mammogram Screening Tomosynthesis Bilateral Social History Tobacco Use Types Packs/Day Years [...] Description 08/01/2025 9:45 AM EST Office Visit [facility] MED & PEDS [address] [place] [address] Nicky Wilson MD [address] [place] [address] documented as of this encounter Visit Diagnoses Not on filedocumented in this encounter Care Teams Tile Mason Relationship Specialty Start Date End Date Nicky Wilson MD [address] [place] [address] PCP - General Family Medicine 12/29/18 documented as of this encounter
== END 2025-06-08 11:29 | disposition home or self-care (01) ==
LOC: HO.HGI 09:44
PROVIDERS: PCP Pediatrics; Visit Provider Nurse Practitioner Family
DX: R19.5 Other fecal abnormalities (principal)
CPT/HCPCS: 99204

== ENCOUNTER → 2025-06-08 09:43 | Outpatient (BNVA) | payer MEDICARE, SELFPAY | PROVIDERS: PCP Pediatrics; Visit Provider Nurse Practitioner Family | DX: R19.5 Other fecal abnormalities (principal); Z79.01 Long term (current) use of anticoagulants; J44.9 Chronic obstructive pulmonary disease, unspecified; Z99.81 Dependence on supplemental oxygen; Z87.891 Personal history of nicotine dependence; G47.33 Obstructive sleep apnea (adult) (pediatric); Z99.89 Dependence on other enabling machines and devices; I10 Essential (primary) hypertension; I48.91 Unspecified atrial fibrillation | CPT/HCPCS: 99202 ==

== ENCOUNTER 2025-06-21 10:18 | Outpatient (AMB) | payer MEDICARE, SELFPAY ==
--- NOTE | 2025-06-21 10:20 | MHC.OFFVIS ---
Vital Signs 06/21/25 10:22 Height 5 ft 7 in Weight 187 lb 6.287 oz BMI 29.3 BP 130/76 Blood Pressure Location Lt brachial Position Sitting Pulse 77 Intake Visit Reasons: 6m f/up/ juan ramon mibi/echo [id number] Intake Note: 6 month follow-up after juan ramon mibi and echo and clearance for colonscopy feeling good High Energy Forming Equipment Operator Required: No Allergies No Known Allergies Allergy (Verified 12/14/24 10:07) Medication List - Last Reconciled 06/21/25 by Yusuf rFench MD albuterol sulfate 90 mcg/actuation inhalation apixaban (Eliquis) 5 mg PO BID atorvastatin 40 mg PO DAILY bisacodyl 20 mg (4 x 5 mg) PO ONCE diltiazem HCl CD 120 mg PO DAILY furosemide 40 mg PO DAILY multivitamin 1 tab PO DAILY polyethylene glycol 3350 (Miralax) 238 grams PO ONCE umeclidinium-vilanterol 62.5-25 mcg/actuation (Anoro Ellipta) 1 ea inhalation DAILY HPI Comments Details: Krystal comes for follow-up for heart failure and atrial fibrillation. She continues to have symptoms of exertional shortness of breath related to his COPD but he is trying to do more walking. She has also cut out sugar and has been losing weight to try to manage her prediabetes. She is scheduled to undergo colonoscopy. She has not had any worsening heart failure, PND, abdominal distention, leg edema, weight gain. She has not prolonged irregular heartbeat. Or neurologic events. No exertional chest pain. She had a recent myocardial perfusion imaging which was within normal limits [facility] Medical History Positive colorectal cancer screening using Cologuard test Right heart failure COPD (chronic obstructive pulmonary disease) Paroxysmal atrial fibrillation Surgical History Hx of hysterectomy Family History Father No problems noted. Mother Diabetes Social History Patient Tobacco Use Status: Former Tobacco user Review of Systems Const Denies chills, Denies fatigue, Denies fever(s), Denies frequent falls, Denies weakness, Denies weight gain and Denies weight loss ENT Denies dizziness Card Denies chest pain, Denies leg edema, Denies lightheadedness, Denies palpitations, Denies dyspnea, Denies dyspnea on exertion, Denies orthopnea and Denies other (loss of consciousness) Resp Denies cough, Denies dyspnea and Denies dyspnea on exertion GI Denies hematochezia and Denies change in stool character Musc Denies abnormal gait, Denies muscle weakness, Denies numbness, Denies radiating pain into limb and Denies tingling Neuro Denies Abnormal speech present, Denies abnormal gait, Denies dizziness, Denies frequent falls, Denies numbness, Denies tingling and Denies weakness Endo Denies fatigue and Denies palpitations Physical Exam Vital Signs: Last Vital Signs Pulse 77 06/21/25 10:22 BP 130/76 06/21/25 10:22 BMI result Body Mass Index 29.3 Const General: cooperative, comfortable, no acute distress, alert and awake Nutritional Appearance: obese Orientation/consciousness: patient oriented x3 Limitations: ambulation with walker HEENT Head: Yes normocephalic and Yes atraumatic Neck Neck: Yes trachea midline, Yes supple and Yes no JVD Resp Effort & Inspection: normal respiratory effort Auscultation: clear to auscultation bilaterally, no rales, no wheezes and diminished lung sounds Cardio Jugular venous distension: no JVD Palpation: normal PMI Rate: regular rate Rhythm: regular rhythm Heart sounds: S1 normal heart sound present, S2 normal heart sound present, no click, no gallops, no murmurs and no rubs GI Auscultation: normal bowel sounds Skin General skin exam: no rashes or lesions noted Neuro General: patient oriented x3 and no focal motor deficits Speech: No Abnormal speech present Extrem General: Yes no clubbing, cyanosis or edema Psych Appearance: grossly normal Assessment & Plan Assessment & Plan (1) Right heart failure: Code(s): I50.810 - Right heart failure, unspecified Category: Medical Plan: Right heart failure in this elderly woman most likely related to COPD as well as RV dysfunction. Clinically appears to be euvolemic and well compensated at this point time on current diuretic dose. Management of heart failure was discussed. Continue COPD optimization. Continue current diuretic dose. Daily weight monitoring avoidance salt loading was discussed. Encouraged to maintain activity level as tolerated. (2) Paroxysmal atrial fibrillation: Code(s): I48.0 - Paroxysmal atrial fibrillation Category: Medical Plan: Paroxysmal atrial fibrillation which has remained suppressed. Continue rhythm control approach. Continue current Cardizem therapy. No indication for antiarrhythmic drug therapy at this point time. Continue full oral anticoagulation, currently on Eliquis 5 mg b.i.d.. Semi annual renal function test should be pursued. (3) Preoperative cardiovascular examination: Code(s): Z01.810 - Encounter for preprocedural cardiovascular examination Plan: Preoperative cardiovascular risk stratification for colonoscopy which is considered low risk procedure. Patient is currently optimized from cardiac perspective for the procedure. Eliquis can be withheld for 3 days prior to the procedure and resumed as soon as possible after the procedure with the associated thromboembolic risk. This was discussed with her. Can hold Lasix and potassium pill on the day of the procedure. Continue other medications from cardiac perspective. Patient has significant underlying pulmonary disease which may affect anesthesia planning. Will follow up in the clinic in 6 months time after an echocardiogram. Thank you for allowing me to partake in her care Coding Level of Care Code Est Pt Level 4 (89385) Complex EM visit Add On G2211 Diagnoses Right heart failure I50.810 Paroxysmal atrial fibrillation I48.0 Preoperative cardiovascular examination Z01.810
[2025-06-21 10:22] VITALS: BP 130/76; PULSE 77; BMI 29.3
--- OUTSIDE RECORDS SUMMARY | 2025-06-21 12:03 | XMS_ITS | Data Portability ---
Author Organization [facility] [employer] [facility], Main Office Address [address] [place] [address] Care Team Providers Care Program Advocate Name Role Phone MALI LEOS 1ST FLOOR [...] By Organization Details Last Modified Time 12/19/2018 [id number] d/c home with O2 , meds, nebs and services. f/u with pcp in 1-2 weeks f/u with cardiology and pulm as scheduled. [email or web address] Not available 12/19/2018 09:39:26 Reason for Referral None Reported. Problems Name Problem SNOMED Code Status Onset Date Resolution Date Notes Provider Name and Address Organization Details Recorded Time Congestive heart failure 61591527 Active 2018 JTDARCI JACKSON [address] [facility], [address], [place], [address], [facility] [employer] 9 13:26:01 Obstructive sleep apnea syndrome 41013450 Active 2018 [facility] [address] [facility], [address], [place], [address], [employer] 9 13:26:05 Atrial flutter 7276761 Active [address], [address], [place], [address], [employer] 9 13:26:14 Fracture of the lateral humeral epicondyle 568756210 Active [address], [address], [place], [address], [employer] 9 13:26:25 Secondary polycythemi a 19508320 Active [address], [address], [place], [address], [employer] 9 13:26:59 Acute hypoxemic respiratory failure 739205125 Active [address], [facility] [address], [place], [address], [employer] 9 13:27:13 Arthritis of joint of right shoulder region 7346778985570 101 Active [address], [address], [place], [address], [employer] 9 13:27:31 Hyperlipide kale 13705423 Active [address], [address], [place], [address], [employer] 9 13:39:56 Chronic obstructive pulmonary disease 40075568 Active 2018 Felipa Win MD [address] [facility], [address], [place], [address], [employer] 9 13:03:17 Problem Notes None recorded. Medical [...] % 2 L/min 18 /min 130/73 mm[Hg] [address], [address], [place], [address], [employer] 9 14:02:33 Date Recorded Body height Body mass index (BMI) Body weight Heart rate Respiratory rate Body temperature Oxygen saturation Oxygen saturation in Arterial blood by Pulse oximetry Inhaled oxygen flow rate Systolic And Diastolic Provider Name and Address Organization Details Last Updated DateTime 9 170.18 cm 28.8 kg/m2 71699 g 92 /min 18 /min 97.8 [degF] 93 % 93 % 2 L/min 154/80 mm[Hg] Felipa Win MD [address] [facility] [address], [place], [address], [employer] 9 13:51:37 Date Recorded Body height Body mass index (BMI) Body weight Heart rate Respiratory rate Body temperature Oxygen saturation Oxygen saturation in Arterial blood by Pulse oximetry Inhaled oxygen flow rate Systolic And Diastolic Provider Name and Address Organization Details Last Updated DateTime 9 170.18 cm 28.7 kg/m2 07959.8 4 g 88 /min 18 /min 97.5 [degF] 91 % 91 % 1.5 L/min 155/85 mm[Hg] Felipa Win MD [address] [facility] [address], [place], [address], [employer] 9 12:48:37 Date Recorded Body height Heart rate Systolic And Diastolic Provider Name and Address Organization Details Last Updated DateTime 12/19/2018 170.18 cm 92 /min 135/85 mm[Hg] Cassandra Delgadillo [employer] 12/19/2018 09:34:01 Social History Question Answer Notes LastModified by Organizat ion Details LastModified Time Tobacco Smoking Status Former Smoker Not Available [employer] 06/11/2020 03:13:22 Do You Have An Advance Directive? Yes DNI/DNR/no Art Hydration, No Dialysis, Ok For Hospitaliza tion, And Art. Hydration. [id number] Information not available 06/11/2020 How Much Tobacco Do You Chew? None [id number] Information not available 06/11/2020 Do You Have A Medical Power Of Repair Miller? No [id number] Information not available 06/11/2020 What Was The Date Of Your Most Recent Tobacco Screening? 12/15/2018 [id number] Information not available 06/11/2020 Has Tobacco Cessation Counseling Been Provided? No Quit 5 Yrs Ago [id number] Information not available 06/11/2020 How Many Years Have You Smoked Tobacco? 35 Smoked 1 Ppd For 35 Yrs. [id number] Information not available 06/11/2020 Sex: Unknown Functional Status Question Answer Note LastModified by Organizat ion Details LastModified Time What is your level of alcohol consumption? Occasional [id number] Information not available 06/11/2020 Mental Status None [...] ICD10 Code Diagnosis IMO Codes Diagnosis Note [id number] JT JACKSON MALI LEOS [address] [place] [address] 12/03/2018 13:24:20 12/09/2018 11:06:03 Congestive heart failure 18997185 I50.41 See HPI, new dxlikely sys and llamas. dysfunctio nLasix 40 mg BIDhome 02 with goal of 88%-92%fol low up with cards outpt as neededmoni tor fluid volume and resp statusdail y weights , Add YOLANDA stockings daily on AM off qhs Obstructiv e sleep apnea syndrome 70711243 G47.33 Has sleep study consistent with SHANE [...] cannot wear the face mask. Atrial flutter 8978874 I 48.3 Cardizem 120 mg dailyeliqu is 5 mg BIDASA 81 mg dailymonit or rate Fracture o f the lateral humeral epicondyle 302444812 S42.434A Fell on ice two years ago, chronic pain to areaF/U with ortho to determine surgical future Hyperlipidemia 55433435 E78.2 Atorvastat in 40 mg dailymonit or lipids every 6 months Acute hypo xemic respiratory failure 826359346 J96.01 Duonebs q 4 hours PRNmonitor resp status [id number] Felipa Win MD [address] [place] [address] 12/08/2018 13:44:37 12/09/2018 12:29:08 Congestive heart failure 40994083 I50.41 Much improved with diuresis of ~30#. Continue Lasix 40 mg BID. Monitor daily wts, edema and resp. status.Con tinue TEDs stockings. F/U with cardio as outpt. Obstructiv e sleep apnea syndrome 59048343 G47.33 New dx of SHANE inpt. Now on BiPAP parameters written as 29/04 with at least 3 liters 02 QHS, but will titrate O2 flow to sats 90-92% Atrial flutter 8295263 I 48.3 Now in reg. rhythm. Continue diltiazem 120 mg qd, eliquis 5 mg BID and ASA 81 mg qd.Monitor rate Fracture o f the lateral humeral epicondyle 211144395 S42.434A Fell on ice two years ago, chronic pain to areaF/U with ortho to determine tx. Pt. would rather not have surgery. Hyperlipidemia 63192144 E78.2 Continue atorvastat in 40 mg qd.Monitor lipids as outpt. Acute hypo xemic respiratory failure 135601757 J96.22 J96.21 Likely from COPD. Continues with [...] resp status. Needs pulmonary f/u as outpt. [id number] [facility] DAFNE [address] [place] [address] 12/15/2018 12:32:46 12/21/2018 08:45:59 Chronic obstructive pulmonary disease 75789798 J43.1 Untxed for yrs. Pt. has clearly [...] this point. Acute hypo xemic respiratory failure 618291725 J96.22 J96.21 Likely from COPD as above. Continues with need for supplement al O2. Should keep sats between 90-92%, but NO HIGHER THAN 93% due to pt's hx of retaining CO2. Monitor resp status. Needs pulmonary f/u as outpt. Congestive heart failure 31208687 I50.41 Much improved with diuresis of ~30#. Continue Lasix 40 mg BID. Monitor daily wts, edema and resp. status.Con tinue TEDs stockings. F/U with cardio as outpt. Obstructiv e sleep apnea syndrome 89381282 G47.33 New dx of SHANE inpt. Now on BiPAP parameters written as 29/04 with at least 3 liters 02 QHS, but will titrate O2 flow to sats 90-92% [id number] [place] [address] [facility] [place] [address] 12/19/2018 07:58:06 12/21/2018 09:44:20 Chronic obstructive pulmonary disease 21368591 J43.1 -untreated for for yrs. -Artem d/c home with O2 to maintain improved cardio/res p. health. Pt. understand s that with pulmonary rehab she may be able to taper her use to with activity only. -Continue duonebs q hrs prn and albuterol nebs q 4 hrs prn. -She appears back to her baseline at this point. Acute hypo xemic respiratory failure 645023811 J96.22 J96.21 d/t COPD as above. Continues with need for supplement al O2. Should keep sats between 90-92%, but NO HIGHER THAN 93% due to pt's hx of retaining CO2. Monitor resp status. Needs pulmonary f/u as outpt. Congestive heart failure 67432440 I50.41 Much improved with diuresis of ~30#. Continue Lasix 40 mg BID. Monitor daily wts, edema and resp. status.Con tinue TEDs stockings. F/U with cardio as outpt. Obstructiv e sleep apnea syndrome 19933646 G47.33 New dx of SHANE inpt. Now [...] Koch Member ID Guarantor Name 12/21/2018 1 [employer] (MEDICARE REPLACEMENT/A DVANTAGE - HMO) [id number] Krystal Max [id number] Krystal Max Notes Date Note Type Note [...] PCP in many years. JT JACKSON [address] [facility], [address], [place], [address], [employer] 12/09/2018 09:41:08 12/08/2018 text/html This is a [...] the 60s and she was sent to [facility] [place] ambulance. Eval showed hypercarbia in addition [...] of SVT/A flutter. Felipa Win MD [address] [facility], [address], [place], [address], [employer] 12/08/2018 15:08:26 12/15/2018 text/html i am asked [...] episode of SVT/A flutter. Felipa Win MD [address] [place] [address], [address], [place], [address], [employer] 12/15/2018 13:10:11 12/19/2018 text/html i am asked [...] fx, episode of SVT/A flutter. Cassandra carbajal, [employer] 12/19/2018 09:39:37 OBGyn Episode No OBEpisode recorded.
--- OUTSIDE RECORDS SUMMARY | 2025-06-21 12:03 | XMS_ITS | Encounter Summary ---
Author Organization [employer] Address [address] [place] [address] 7t [place] [address] Care Team Providers Care Professional Nurse Name Role Phone Nicky Wilson MD Primary Care Provider [phone] Reason for Visit * Reason Comments Med Refill Encounter Details Date Type Department Care Team (Late Contact Info) Description 12/27/2022 Refill [facility] MED & PEDS [address] [place] [address] Bernice Montgomery MD 505 [place] [address] Social History Tobacco Use Types Packs/Day Years [...] 08/01/2025 9:45 AM EST Office Visit [facility] MED & PEDS [address] [place] [address] Nicky Wilson MD 505 [place] [address] documented as of this encounter Visit Diagnoses Not on filedocumented in this encounter Care Teams Professional Nurse Relationship Specialty Start Date End Date Nicky Wilson MD [address] [place] [address] PCP - General Family Medicine 12/29/18 documented as of this encounter
--- OUTSIDE RECORDS SUMMARY | 2025-06-21 12:03 | XMS_ITS | Encounter Summary ---
Author Organization [employer] Address [address] [place] [address] 7t [place] [address] Care Team Providers Care Binder Stripper Hand Name Role Phone Nicky Wilson MD Primary Care Provider [phone] Encounter Details Date Type Department Care Team (Latest Contact Info) Description 06/04/2025 Results Follow-Up [facility] MED & PEDS [address] [place] [address] Nicky Wilson MD [address] [place] [address] BI Mammogram Screening Tomosynthesis Bilateral Social History [...] Description 08/01/2025 9:45 AM EST Office Visit [facility] MED & PEDS [address] [place] [address] Nicky Wilson MD [address] [place] [address] documented as of this encounter Visit Diagnoses Not on filedocumented in this encounter Care Teams Binder Stripper Hand Relationship Specialty Start Date End Date Nicky Wilson MD [address] [place] [address] PCP - General Family Medicine 12/29/18 documented as of this encounter
--- OUTSIDE RECORDS SUMMARY | 2025-06-21 12:03 | XMS_ITS | Encounter Summary ---
Author Organization [employer] Address [address] [place] [address] 7t [place] [address] Care Team Providers Care Aviation Electrical Technician Name Role Phone Nicky Wislon MD Primary Care Provider [phone] Encounter Details Date Type Department Care Team (Late st Contact Info) Description 07/08/2022 Abstract [facility] MEDICINE [address] [place] [address] ProviderSusanna MD Social History Tobacco Use Types [...] Description 08/01/2025 9:45 AM EST Office Visit [facility] MED & PEDS [address] [place] [address] Nicky Wilson MD [address] [place] [address] documented as of this encounter Visit Diagnoses Not on filedocumented in this encounter Care Teams Aviation Electrical Technician Relationship Specialty Start Date End Date Nicky Wilson MD [address] [place] [address] PCP - General Family Medicine 12/29/18 documented as of this encounter
--- OUTSIDE RECORDS SUMMARY | 2025-06-21 12:03 | XMS_ITS | Encounter Summary ---
Author Organization [employer] Address [address] [place] [address] 7t [place] [address] Care Team Providers Care Aqua Ammonia Operator Name Role Phone Nicky Wilson MD Primary Care Provider [phone] Encounter Details Date Type Department Care Team (Late st Contact Info) Description 07/08/2022 Abstract [facility] [address] [place] [address] ProviderSusanna MD Social History Tobacco Use Types [...] Description 08/01/2025 9:45 AM EST Office Visit [facility] MED [facility] PEDS [address] [place] [address] Nicky Wilson MD [address] [place] [address] documented as of this encounter Visit Diagnoses Not on filedocumented in this encounter Care Teams Aqua Ammonia Operator Relationship Specialty Start Date End Date Nicky Wilson MD [address] [place] [address] PCP - General Family Medicine 12/29/18 documented as of this encounter
--- OUTSIDE RECORDS SUMMARY | 2025-06-21 12:03 | XMS_ITS | Clinical Summary ---
Author Organization [employer] Address [address] [facility] 7t [place] [address] Care Team Providers Care Blending Supervisor Name Role Phone Nicky Wilson MD Primary Care Provider [phone] Allergies Active Allergy Reactions Criticality Noted Date Comments Tomato 12/12/2018 Other reaction(s): Cutaneous reactions Medications albuterol 108 (90 Base) MCG/ACT inhaler INHALE 2 PUFFS BY MOUTH INTO THE LUNGS EVERY 4 HOURS NEEDED 12/27/19 22 Active dilTIAZem CD (Cardizem CD) 120 MG 24 hr capsule Take 1 capsule (120 mg) by mouth in the morning. 90 capsule 1 12/29/19 23 Active albuterol 108 (90 Base) MCG/ACT inhalerIndicatio ns:Mixed simple and mucopurulent chronic bronchitis (CMS/HCC) (HCC) INAHLE 2 PUFFS BY MOUTH EVERY 4-6 HOURS NEEDED FOR WHEEZING 8.5 g 5 03/20/20 24 Active Umeclidinium-Shannon anterol (Anoro Ellipta) 62.5-25 MCG/ACT aerosol powder INHALE ONE PUFF EVERY MORNING 60 each 3 05/30/20 24 Active atorvastatin (Lipitor) 40 MG tablet Take 1 tablet by mouth. 12/03/19 19 Active aspirin 81 MG EC tablet Take 1 tablet by mouth Once per day. 12/03/19 19 Active Umeclidinium-Shannon anterol (Anoro Ellipta) 62.5-25 MCG/ACT aerosol powder Inhale 1 puff Once per day. 60 each 11 10/09/19 25 Active atorvastatin (Lipitor) 40 MG tabletIndication s:Dyslipidemia TAKE 1 TABLET BY MOUTH EVERY NIGHT AT BEDTIME 90 tablet 1 10/20/19 25 Active atorvastatin (Lipitor) 40 MG tabletIndication s:Dyslipidemia Take 1 tablet (40 mg) by mouth at bedtime. 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) TAKE 1 TABLET(40 MG) BY MOUTH IN THE MORNING 90 tablet 1 04/30/20 25 Active dilTIAZem CD (Cardizem CD) 120 MG 24 hr capsule TAKE 1 CAPSULE BY MOUTH EVERY DAY 90 capsule 1 06/12/20 25 Active dilTIAZem CD (Cardizem CD) 120 MG 24 hr capsule TAKE 1 CAPSULE BY MOUTH EVERY DAY 90 capsule 03/12/20 25 025 Discontinued Active Problems Problem Noted Date Diagnosed Date Osteopenia after menopause 11/28/2024 Acute hypoxemic respiratory failure (CMS/HCC) Chronic right-sided heart failure 07/06/2024 Chronic obstructive lung disease 12/29/2018 06/10/2023 Atrial fibrillation and flutter 12/29/2018 06/10/2023 Obstructive sleep apnea syndrome 12/29/2018 06/10/2023 Essential (primary) hypertension 12/02/2018 06/10/2023 Secondary polycythemia 12/02/2018 3 Encounters Date Type Department Care Team Description 06/11/2025 Refill [facility] [address] [place] [address] Bernice Montgomery MD 06/04/2025 Results Follow-Up [facility] [address] [place] [address] Nicky Wilson MD BI Mammogram Screening Tomosynthesis Bilateral 05/31/2025 Orders Only [facility] [address] [place] [address] Nicky Wilson MD 04/30/2025 Telephone [facility] [address] [place] [address] Nicky Wilson MD Med Refill 04/30/2025 Refill [facility] [address] [place] [address] Nicky Wilson MD 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 [address] Mammography Report Signed Patient: Krystal Max MR#: [id number] : 1950 Acct:[id number] Age/Sex: 75 / F ADM Date: 05/31/25 Loc: HO.MAMMO Attending Dr: Nicky Wilson MD Ordering Physician: Nicky Wilson MD Results: 1Ne gative Date of Service: 05/31/25 Follow Up: 1 Year From Orig ina Mammogram Procedure(s): MM tomosynthesis screening BI Accession Number(s): [id number] cc: Nicky Wilson MD Reason For Exam: [...] 06/03/25 1132 DD/ 1120 TD/TT: 05/31/25 1140 Mine Geologist: Procedure Note Donotuseinterpreter, Image - [facility] [address] [place] [address] Mammography Report Signed Patient: Sridevi Max#: [id number] : 1950cct:[id number] Age/Sex: 75 / FADM Date: 05/31/25 Loc: HO.MAMMO Attending Dr: Nicky Wilson MD Ordering Physician: Nicky Wilson MDResults: 1Ne gative Date of Service: 05/31/25Follow Up: 1 Year From Orig inal Mammogram Procedure(s): MM tomosynthesis screening BI Accession Number(s): [id number] cc: Nicky Wilson MD Reason For Exam: [...] 06/03/25 1132 DD/ 1120 TD/TT: 05/31/25 1140 Mine Geologist: us Nicky Wilson MD IMG BI PROCEDURES Edited Resu lt - Final * (ABNORMAL) Cologuard?? colon cancer screening (11/22/2024 8:57 AM EDT) Cologuard Result Positive( A) Negative 11/28/2024 8:41 AM EDT [facility] (CLIA #:[id number]) Comment: POSITIVE TEST RESULT. A positive Cologuard [...] Braga et al, N Engl J Med 2014;370(14):3665-4456.) Cologuard may produce a false negative or false positive result (no colorectal cancer or precancerous polyp present at colonoscopy follow up). A negative Cologuard test result does not guarantee the absence of CRC or advanced adenoma (pre-cancer). The current Cologuard screening interval is every 3 years. ([place] Cancer Society and U.S. Multi-Society Task Force). Cologuard performance data in a 10,000 patient pivotal study using colonoscopy as the reference method can be accessed at the following location: www.[employer]/results. Additional description of the Cologuard test process, warnings and precautions can be found at www.[email or web address].[email or web address]. Stool specimen (specimen) 11/22/2024 8:57 AM EDT 11/23/2024 12:49 PM EDT us Nicky Wilson MD LAB MOLECULAR DIAGNOSTICS ORD ERABLES Final Result [facility] (CLIA #:[id number]) [address] [place] [address], * (ABNORMAL) Hemoglobin A1c (11/20/2024 8:26 AM EDT) Hemoglobin A1c 6.1(H) <6.0 % [facility] Comment:Hemoglobin A1C Refer ence Range Adults: 4.8 - 6.0 % Non diabetic: < 6.0 % Goal: < 7.0 %Additional Action Suggested: > 8.0 %Note: Hemoglobin A1c results are invalid for patients with abnormal amounts of HbF. Blood transfusions may impact the HbA1c concentration in the patient sample. Estimated Average Glucose 128 mg/dL [facility] Comment:eAG = Estimated ave rage glucose which is %A1C expressed asaverage glucose, using the formula of the S6M-[id number] Glucose study (ADAG), Diabetes Care, Vol.31,#8,Mar. 2007 Blood Venous blood specimen / Unknown 11/20/2024 8:26 AM EDT 11/20/2024 1:56 PM EDT us Nicky Wilson MD LAB BLOOD ORDERABLES Final Re sult [facility] [address] [place] [address] [phone] * (ABNORMAL) Lipid Panel, Standard (11/20/2024 8:26 AM EDT) Triglycerides 169(H) <150 mg/dL [facility] Comment:Slight Lipemia.Víctor able Triglyceride: less than 150 mg/dLBorderline High Triglyceride 150-199 mg/dLHigh Triglyceride: 200-499 mg/dLVery High Triglyceride: greater than or equal to 5OO mg/dL Cholesterol 133 <200 mg/dL [facility] Comment:Desirable Cholestero l: less than 200 mg/dLBorderline High Cholesterol: 200-239 mg/dLHigh Cholesterol: greater than 239 mg/dL LDL Cholesterol Calculated 51 <100 mg/dL [facility] Comment:Desirable LDL: less than 100 mg/dLNear Optimal/Above Optimal LDL: 110- 129 mg/dLBorderline High LDL: 130-159 mg/dLHigh LDL: 160-189 mg/dLVery High LDL: greater than or equal to 190 mg/dL HDL Cholesterol 49 >40 mg/dL [facility] Comment:Desirable HDL: great er than 40 mg/dL Note: This HDL assay may give artificially low results in patients with liver disease. Blood Venous blood specimen / Unknown 11/20/2024 8:26 AM EDT 11/20/2024 1:56 PM EDT Nicky Wilson MD LAB BLOOD ORDERABLES Final Re sult [facility] [address] [place] [address] [phone] from Last 3 Months or Most Recently Relevant to Health Maintenance Insurance [employer] HMO Care Teams Blending Supervisor Relationship Specialty Start Date End Date Nicky Wilson MD [address] [place] [address] PCP - General Family Medicine 12/29/18
--- OUTSIDE RECORDS SUMMARY | 2025-06-21 12:03 | XMS_ITS | Encounter Summary ---
Author Organization [employer] Address [address] [place] [address] 7 [place] [address] Care Team Providers Care Welder Tool And Die Name Role Phone Nicky Wilson MD Primary Care Provider [phone] Reason for Visit * Reason Comments Med Refill Encounter Details Date Type Department Care Team (Late Contact Info) Description 11/28/2022 Refill [facility] [address] [place] [address] Nicky Wilson MD [address] [place] [address] Social History Tobacco Use Types Packs/Day Years [...] 08/01/2025 9:45 AM EST Office Visit [facility] [address] [place] [address] Nicky Wilson MD [address] [place] [address] documented as of this encounter Visit Diagnoses Not on filedocumented in this encounter Care Teams Welder Tool And Die Relationship Specialty Start Date End Date Nicky Wilson MD [address] [place] [phone] PCP - General Family Medicine 12/29/18 documented as of this encounter
--- OUTSIDE RECORDS SUMMARY | 2025-06-21 12:03 | XMS_ITS | Encounter Summary ---
Author Organization [employer] Address [address] [place] [address] [address] [place] [address] Care Team Providers Care Injection Molding Machine Setter Name Role Phone Nicky Wilson MD Primary Care Provider [phone] Reason for Visit * Reason Comments Med Refill Encounter Details Date Type Department Care Team ([facility] Contact Info) Description 05/22/2023 Refill [facility] [address] [place], [place] [phone] Nicky Wilson MD [address] [place] [address] Social History Tobacco Use Types Packs/Day Years [...] Upcoming Encounters Date Type Department Care Team ([facility] Contact Info) Description 08/01/2025 9:45 AM EST Office Visit [facility] [address] [place], [place] [phone] Nicky Wilson MD [address] [place] [address] documented as of this encounter Visit Diagnoses Not on filedocumented in this encounter Care Teams Injection Molding Machine Setter Relationship Specialty Start Date End Date Nicky Wilson MD [address] [place] [phone] PCP - General Family Medicine 12/29/18 documented as of this encounter
--- OUTSIDE RECORDS SUMMARY | 2025-06-21 12:03 | XMS_ITS | Encounter Summary ---
Author Organization [employer] Address [address] [facility] 7[address] [place] [address] Care Team Providers Care Poultry Packer Name Role Phone Nicky Wilson MD Primary Care Provider [phone] Reason for Visit * Reason Onset Date Comments Referral 11/17/2024 Encounter Details Date Type Department Care Team ([facility] st Contact Info) Description 11/17/2024 Telephone [facility] [address] [place] [address] Nicky Wilson MD [address] [place] [phone] Referral Social History Tobacco Use Types Packs/Day [...] referral be sent to Dr. Reyes at [facility] instead of the as sent to [facility]. Routing to provider for new referral. * Telephone Encounter - Kp Del Vallenandez - 11/17/2024 10:42 AM EDT Tc from pt requesting a referral for Pulminary to be sent to Dr. Reyes at [facility] [address]. Contact pt at [phone] documented in this encounter Plan of Treatment Upcoming Encounters Date Type Department Care Team (Late st Contact Info) Description 08/01/2025 9:45 AM EST Office Visit [facility] [address] [place] [address] Nicky Wilson MD [address] [place] [address] documented as of this encounter Visit Diagnoses Not on filedocumented in this encounter Care Teams Poultry Packer Relationship Specialty Start Date End Date Nicky Wilson MD [address] [place] [address] PCP - General Family Medicine 12/29/18 documented as of this encounter
--- OUTSIDE RECORDS SUMMARY | 2025-06-21 12:03 | XMS_ITS | Clinical Summary ---
Author Organization [address] [facility] Address [address] [place] [address] Phone Care Team Providers Care Trader Name Role Phone Nicky Wilson MD Primary Care Provider [phone] Allergies Active Allergy Reactions Criticality Noted Date [...] 04/27/2025 10:00 AM EDT Ancillary Procedure Pulmonology [facility] [address] [phone] Chronic obstructive pulmonary disease, unspecified COPD type [...] 07/05/2025 9:45 AM EST Office Visit Pulmonology [address] [phone] Milagros Reyes MD [address] [place] [phone] Health Maintenance Due Date Last Done Comments [...] Chronic obstructive pulmonary disease, unspecified COPD type (CMS/[facility] V24, CMS/[facility] V28) from Last 3 Months Results * [...] Months Insurance [employer] MEDICARE Care Teams Trader Relationship Specialty Start Date End Date Nicky Wilson MD [address] [place] [phone] PCP - General 03/21/19
== END 2025-06-21 10:41 | disposition home or self-care (01) ==
LOC: HO.HCS 10:19
PROVIDERS: PCP Pediatrics; Visit Provider Internal Medicine Cardiovascular Disease
DX: I50.810 Right heart failure, unspecified (principal); I48.0 Paroxysmal atrial fibrillation; Z01.810 Encounter for preprocedural cardiovascular examination
CPT/HCPCS: 99214; G2211

== ENCOUNTER → 2025-06-21 10:18 | Outpatient (BNVA) | payer MEDICARE, SELFPAY | PROVIDERS: PCP Pediatrics; Visit Provider Internal Medicine Cardiovascular Disease | DX: I48.0 Paroxysmal atrial fibrillation (principal); I50.810 Right heart failure, unspecified; Z01.810 Encounter for preprocedural cardiovascular examination; Z79.01 Long term (current) use of anticoagulants; Z87.891 Personal history of nicotine dependence | CPT/HCPCS: 99212 ==